=== PATIENT | female | born 1940 | race Caucasian/White ===

== ENCOUNTER → 2018-06-20 | Outpatient (CLI) | payer MEDICARE, MEDICAID ==
[~2018-06-20] MED LIST: ACET-1757 PO; AMIO200T PO; AMLO10TA2 PO; AMLO2.5T PO; ASPI-496 PO; ATOR40TA PO; ATOR40TA78 PO; BP med; CARV12.52 PO; CARV12.543 PO; CARV25TA12 PO; CEFD300C37 PO; FERR325T63 PO; FURO-92 PO; FURO20TA3 PO; GABA-826 PO; GLIP10TA13 PO; HYDR-3240 PO; HYDR-3343 PO; ISOS10TA2 PO; LEVO50TA5 PO; LEVO75TA PO; LEVO88TA4 PO; LIDOCAINE-MPF 2%, 2ML ONE; LISI-167 PO; LOSA50TA2 PO; LOSA50TA6 PO; METF500T5 PO; MIRT30TA4 PO; POTA20TA14 PO; POTA20TA6 PO; POTA8TAB6 PO; TRAM-47 PO; WARF2.5T73 PO-COUM; [UNRECOGNIZED DRUG - OTHER]; [UNRECOGNIZED DRUG - REMARK]; will bring med list
== END | disposition home or self-care (01) ==
LOC: RAD 11:57
PROVIDERS: ATTEND Internal Medicine
DX: E04.2 Nontoxic multinodular goiter (principal); D44.0 Neoplasm of uncertain behavior of thyroid gland
CPT/HCPCS: 76536; 76942; 88172; 88173; J3490; 31628; 31629

== ENCOUNTER → 2018-07-30 | Outpatient (CLI) | payer MEDICARE, MEDICAID ==
[~2018-07-30] MED LIST changes: -AMLO10TA2 PO; +AMLO10TA6 PO; -AMLO2.5T PO; +AMLO2.5T3 PO; -LOSA50TA6 PO; +LOSA50TA7 PO; +METF500T17 PO; -METF500T5 PO
== END | disposition home or self-care (01) ==
LOC: RAD 08:30
PROVIDERS: ATTEND Surgery
DX: C73 Malignant neoplasm of thyroid gland (principal); R59.0 Localized enlarged lymph nodes; Z85.850 Personal history of malignant neoplasm of thyroid; E11.9 Type 2 diabetes mellitus without complications
CPT/HCPCS: 76942; 88172; 88173; J3490

== ENCOUNTER → 2018-08-16 | Outpatient (CLI) | payer MEDICARE, MEDICAID ==
[~2018-08-16] MED LIST changes: -LIDOCAINE-MPF 2%, 2ML ONE
== END | disposition home or self-care (01) ==
LOC: CVU 09:35
PROVIDERS: ATTEND Nurse Practitioner Family
DX: I08.2 Rheumatic disorders of both aortic and tricuspid valves (principal); Z95.810 Presence of automatic (implantable) cardiac defibrillator; Z95.2 Presence of prosthetic heart valve
CPT/HCPCS: 93306

== ENCOUNTER → 2018-08-27 | Outpatient (CLI) | payer MEDICARE, MEDICAID ==
[~2018-08-27] MED LIST changes: +[UNRECOGNIZED DRUG - OTHER]
[2018-08-27 12:41] LABS: BASOPHILS # (AUTO) 0.02 x10^3/uL (0-0.1); BASOPHILS % (AUTO) 0 % (0-1); EOSINOPHILS % (AUTO) 3 % (1-7); LYMPHOCYTES # (AUTO) 0.89 x10^3/uL (1-3.4); LYMPHOCYTES % (AUTO) 13 % (22-44); MD NO; MEAN CORPUSCULAR HEMOGLOBIN 29.6 pg (27.0-34.8); MEAN CORPUSCULAR HGB CONC 33.4 g/dL (32.4-35.8); MEAN CORPUSCULAR VOLUME 88.5 fL (80-100); MEAN PLATELET VOLUME 9.1 fL (7.4-10.4); MONOCYTES # (AUTO) 0.42 x10^3/uL (0.2-0.8); MONOCYTES % (AUTO) 6 % (2-9); NEUTROPHILS # (AUTO) 5.46 x10^3/uL (1.8-6.8); NEUTROPHILS % (AUTO) 78 % (42-75); PLATELET COUNT 249 x10^3/uL (130-400)
[2018-08-27 12:47] LABS: ALBUMIN 3.2 g/dL (3.4-5.0); ANION GAP 2 mmol/L (5-15); CALCIUM 8.8 mg/dL (8.5-10.1); CHLORIDE 106 mmol/L (98-107)
[2018-08-27 12:51] LABS: ALANINE AMINOTRANSFERASE 24 U/L (12-78); ALKALINE PHOSPHATASE 184 U/L (45-117); BILIRUBIN,TOTAL 0.3 mg/dL (0.2-1.0); CREATININE 0.94 mg/dL (0.55-1.02); TOTAL PROTEIN 7.3 g/dL (6.4-8.2)
== END | disposition home or self-care (01) ==
LOC: STAR 11:06
PROVIDERS: ATTEND Surgery
DX: Z01.818 Encounter for other preprocedural examination (principal); C73 Malignant neoplasm of thyroid gland; E04.2 Nontoxic multinodular goiter
CPT/HCPCS: 36415; 80053; 85025

== ENCOUNTER 2018-09-09 06:02 | Inpatient (IN) | payer MEDICARE, MEDICAID ==
[2018-08-27 11:52] VITALS: BP 191/73
[~2018-09-09] VITALS: Ht 152.4 cm; Wt 77.3 kg
[2018-09-09] MEDS ORDERED: BUPIVACAINE/PF-EPI 0.5% 1:200K ONE (06:28)
[2018-09-09] MEDS ORDERED: LACTATED RINGERS 1,000 ML IV SCH (06:44)
[2018-09-09] MEDS ORDERED: FENTANYL PF 250 MCG/5ML ONE (07:13)
[2018-09-09] MEDS ORDERED: LIDOCAINE JELLY 2%, 30GM ONE (07:14)
[2018-09-09] MEDS ORDERED: ACETAMINOPHEN 500 MG TABLET ONE (07:15)
[2018-09-09] MEDS ORDERED: ONDANSETRON ODT 8 MG ONE (07:15)
[2018-09-09] MEDS ORDERED: ONDANSETRON ODT 8 MG PO ONE (07:30)
[2018-09-09] MEDS ORDERED: ACETAMINOPHEN 500 MG TABLET PO ONE (07:30)
[2018-09-09] MEDS ORDERED: LABETALOL 5MG/ML, 20ML ONE (07:37)
[2018-09-09] MEDS ORDERED: HYDROmorphone 1 MG/ML, 1ML IV PRN (09:00)
[2018-09-09] MEDS ORDERED: ONDANSETRON 2MG/ML, 2ML IV PRN ×2 (09:00→15:30)
[2018-09-09] MEDS ORDERED: ALBUTEROL/IPRATROPIUM 2.5MG/0.5MG, 3 ML NPPB PRN (09:00)
[2018-09-09] MEDS ORDERED: MIDAZOLAM 1 MG/ML, 2ML IV PRN (09:00)
[2018-09-09] MEDS ORDERED: LABETALOL 5MG/ML, 20ML IV PRN (09:00)
[2018-09-09] MEDS ORDERED: OXYcodone 5 MG/5 ML ORAL.SOL UDC PO PRN (09:00)
[2018-09-09] MEDS ORDERED: DIPHENHYDRAMINE 50 MG/ML, 1ML IVPush PRN (09:00)
[2018-09-09] MEDS ORDERED: DEXAMETHASONE 4 MG/ML, 1ML ONE (09:23)
[2018-09-09] MEDS ORDERED: ONDANSETRON 2MG/ML, 2ML ONE (09:23)
[2018-09-09] MEDS ORDERED: LIDOCAINE-MPF 2% ,5ML ONE (09:23)
[2018-09-09] MEDS ORDERED: CEFAZOLIN 1,000 MG ONE (09:23)
[2018-09-09] MEDS ORDERED: PROPOFOL 10 MG/ML, 20ML ONE (09:23)
[2018-09-09] MEDS ORDERED: ROCURONIUM 10MG/ML,5ML ONE (09:24)
[2018-09-09] MEDS ORDERED: SUCCINYLCHOLINE 20 MG/ML, 10ML ONE (09:24)
[2018-09-09] MEDS: FENTANYL PF 100 MCG/2ML IV PRN ×2 (11:59→14:02)
[2018-09-09] MEDS ORDERED: hydrALAzine 20 MG/ML, 1ML ONE (13:23)
[2018-09-09] MEDS ORDERED: MORPHINE SULFATE 4 MG/ML, 1ML ONE (13:23)
[2018-09-09] MEDS ORDERED: MORPHINE SULFATE 4 MG/ML, 1ML IVPush PRN (13:30)
[2018-09-09] MEDS ORDERED: hydrALAzine 20 MG/ML, 1ML IV PRN (13:30)
[2018-09-09] MEDS ORDERED: FENTANYL PF 100 MCG/2ML ONE (14:01)
[2018-09-09] MEDS ORDERED: ACETAMINOPHEN 650 MG SUPP PR PRN (15:30)
[2018-09-09] MEDS: ISOSORBIDE DINITRATE 10 MG TABLET PO SCH ×2 (16:39→20:33)
[2018-09-09] MEDS: CARVEDILOL 25 MG TABLET PO SCH (16:39)
[2018-09-09] MEDS: INSULIN REGULAR, HUMAN 100 UNITS/ML, 3ML MEDIUM DOSE SS SQ-INSULIN SCH ×2 (16:50→20:31)
[2018-09-09] MEDS: POTASSIUM CHLORIDE 20 MEQ in D5%-0.45% NACL 1,000 ML IV SCH (16:51)
[2018-09-09] MEDS: MORPHINE SULFATE 4 MG/ML, 1ML IV PRN (20:31)
[2018-09-09] MEDS: MIRTAZAPINE 30 MG TAB.RAPDIS PO SCH (20:33)
[2018-09-09] MEDS: ATORVASTATIN 40 MG TABLET PO SCH (20:33)
[2018-09-10] MEDS: MORPHINE SULFATE 4 MG/ML, 1ML IV PRN ×2 (03:11→15:34)
[2018-09-10 04:38] LABS: BASOPHILS % (AUTO) 0 % (0-1); EOSINOPHILS % (AUTO) 0 % (1-7); LYMPHOCYTES % (AUTO) 5 % (22-44); MD NO; MEAN CORPUSCULAR HEMOGLOBIN 29.2 pg (27.0-34.8); MEAN CORPUSCULAR VOLUME 88.7 fL (80-100); MONOCYTES # (AUTO) 1.11 x10^3/uL (0.2-0.8); MONOCYTES % (AUTO) 9 % (2-9); NEUTROPHILS # (AUTO) 10.26 x10^3/uL (1.8-6.8); NEUTROPHILS % (AUTO) 86 % (42-75); PLATELET COUNT 306 x10^3/uL (130-400); RED BLOOD COUNT 3.88 x10^6/uL (3.82-5.3); RED CELL DISTRIBUTION WIDTH 13.7 % (9.6-15.2)
[2018-09-10 04:41] LABS: ALBUMIN 2.5 g/dL (3.4-5.0); ANION GAP 6 mmol/L (5-15); CALCIUM 6.9 mg/dL (8.5-10.1); CHLORIDE 107 mmol/L (98-107)
[2018-09-10 04:43] LABS: CREATININE 0.93 mg/dL (0.55-1.02)
[2018-09-10] MEDS: CARVEDILOL 25 MG TABLET PO SCH ×2 (06:00→18:05)
[2018-09-10] MEDS: hydrALAzine 20 MG/ML, 1ML IV PRN ×2 (06:28→10:07)
[2018-09-10] MEDS: POTASSIUM CHLORIDE 20 MEQ in D5%-0.45% NACL 1,000 ML IV SCH ×2 (06:28→22:23)
[2018-09-10] MEDS ORDERED: CALCIUM GLUCONATE 9.2 MEQ in SODIUM CHLORIDE 0.9% 100 ML IV ONE (07:00)
[2018-09-10] MEDS: INSULIN REGULAR, HUMAN 100 UNITS/ML, 3ML MEDIUM DOSE SS SQ-INSULIN SCH ×4 (07:00→21:56)
[2018-09-10] MEDS: ENOXAPARIN 40 MG/0.4 ML SQ SCH (09:10)
[2018-09-10 09:26] VITALS: BP 132/40
[2018-09-10 10:00] VITALS: BP 171/71
[2018-09-10] MEDS: ISOSORBIDE DINITRATE 10 MG TABLET PO SCH ×3 (10:11→21:54)
[2018-09-10] MEDS: FUROSEMIDE 20 MG TABLET PO SCH (10:11)
[2018-09-10] MEDS: AMLODIPINE 2.5 MG TABLET PO SCH (10:11)
[2018-09-10] MEDS: LOSARTAN 50MG TABLET PO SCH (10:11)
[2018-09-10 13:23] VITALS: BP 164/67
[2018-09-10 19:09] VITALS: BP 131/53
[2018-09-10] MEDS: ATORVASTATIN 40 MG TABLET PO SCH (21:54)
[2018-09-10] MEDS: MIRTAZAPINE 30 MG TAB.RAPDIS PO SCH (21:54)
[2018-09-11 01:28] VITALS: BP 138/62
[2018-09-11] MEDS: MORPHINE SULFATE 4 MG/ML, 1ML IV PRN ×2 (02:35→20:53)
[2018-09-11] MEDS: CARVEDILOL 25 MG TABLET PO SCH ×2 (06:54→17:11)
[2018-09-11 07:35] VITALS: BP 157/60
[2018-09-11] MEDS: FUROSEMIDE 20 MG TABLET PO SCH (08:10)
[2018-09-11] MEDS: ISOSORBIDE DINITRATE 10 MG TABLET PO SCH ×3 (08:10→20:52)
[2018-09-11] MEDS: AMLODIPINE 2.5 MG TABLET PO SCH (08:10)
[2018-09-11] MEDS: ENOXAPARIN 40 MG/0.4 ML SQ SCH (08:10)
[2018-09-11] MEDS: LOSARTAN 50MG TABLET PO SCH (08:11)
[2018-09-11] MEDS: CALCIUM CARBONATE 500 MG/5 ML PO SCH ×4 (08:33→21:00)
[2018-09-11] MEDS: INSULIN REGULAR, HUMAN 100 UNITS/ML, 3ML MEDIUM DOSE SS SQ-INSULIN SCH ×4 (08:33→21:00)
[2018-09-11] MEDS: POTASSIUM CHLORIDE 20 MEQ in D5%-0.45% NACL 1,000 ML IV SCH (11:28)
[2018-09-11 14:10] VITALS: BP 152/66
[2018-09-11] MEDS ORDERED: CALCIUM GLUCONATE 4.6 MEQ in SODIUM CHLORIDE 0.9% 50 ML IV ONE (15:00)
[2018-09-11 19:24] VITALS: BP 156/69
[2018-09-11] MEDS: ATORVASTATIN 40 MG TABLET PO SCH (20:51)
[2018-09-11] MEDS: MIRTAZAPINE 30 MG TAB.RAPDIS PO SCH (20:52)
[2018-09-12] MEDS: POTASSIUM CHLORIDE 20 MEQ in D5%-0.45% NACL 1,000 ML IV SCH ×2 (00:48→12:52)
[2018-09-12 02:39] VITALS: BP 152/60
[2018-09-12] MEDS: CARVEDILOL 25 MG TABLET PO SCH ×2 (06:12→17:08)
[2018-09-12] MEDS: INSULIN REGULAR, HUMAN 100 UNITS/ML, 3ML MEDIUM DOSE SS SQ-INSULIN SCH ×4 (07:00→21:58)
[2018-09-12 07:16] VITALS: BP 142/60
[2018-09-12] MEDS ORDERED: CALCITRIOL 0.5 MCG CAPSULE PO SCH (09:00)
[2018-09-12] MEDS: CALCIUM CARBONATE 500 MG/5 ML PO SCH (09:00)
[2018-09-12] MEDS ORDERED: CALCIUM CARBONATE 500 MG TAB.CHEW ONE ×2 (10:27→10:28)
[2018-09-12] MEDS: LOSARTAN 50MG TABLET PO SCH (10:47)
[2018-09-12] MEDS: ISOSORBIDE DINITRATE 10 MG TABLET PO SCH ×3 (10:47→21:50)
[2018-09-12] MEDS: AMLODIPINE 2.5 MG TABLET PO SCH (10:47)
[2018-09-12] MEDS: FUROSEMIDE 20 MG TABLET PO SCH (10:47)
[2018-09-12] MEDS: ENOXAPARIN 40 MG/0.4 ML SQ SCH (10:47)
[2018-09-12 13:35] VITALS: BP 162/72
[2018-09-12] MEDS: CALCIUM CARBONATE 500 MG TABLET PO SCH ×2 (17:07→21:50)
[2018-09-12 18:44] VITALS: BP 141/59
[2018-09-12] MEDS: CALCITRIOL 1 MCG/ML SOL PO SCH (21:49)
[2018-09-12] MEDS: ATORVASTATIN 40 MG TABLET PO SCH (21:50)
[2018-09-12] MEDS: MIRTAZAPINE 30 MG TAB.RAPDIS PO SCH (21:50)
[2018-09-13 01:04] VITALS: BP 145/60
[2018-09-13] MEDS: MORPHINE SULFATE 4 MG/ML, 1ML IV PRN ×2 (01:28→20:42)
[2018-09-13] MEDS: POTASSIUM CHLORIDE 20 MEQ in D5%-0.45% NACL 1,000 ML IV SCH (04:34)
[2018-09-13] MEDS: CARVEDILOL 25 MG TABLET PO SCH ×2 (06:39→16:45)
[2018-09-13 07:14] VITALS: BP 171/68
[2018-09-13] MEDS: INSULIN REGULAR, HUMAN 100 UNITS/ML, 3ML MEDIUM DOSE SS SQ-INSULIN SCH ×4 (07:55→21:58)
[2018-09-13] MEDS: CALCITRIOL 1 MCG/ML SOL PO SCH ×2 (08:52→20:50)
[2018-09-13] MEDS: LOSARTAN 50MG TABLET PO SCH (08:53)
[2018-09-13] MEDS: AMLODIPINE 2.5 MG TABLET PO SCH (08:53)
[2018-09-13] MEDS: ISOSORBIDE DINITRATE 10 MG TABLET PO SCH ×3 (08:53→20:41)
[2018-09-13] MEDS: CALCIUM CARBONATE 500 MG TABLET PO SCH ×3 (08:54→20:42)
[2018-09-13] MEDS: FUROSEMIDE 20 MG TABLET PO SCH (08:54)
[2018-09-13] MEDS: ENOXAPARIN 40 MG/0.4 ML SQ SCH (08:55)
[2018-09-13] MEDS ORDERED: CALCIUM GLUCONATE IV ONE (10:30)
[2018-09-13] MEDS ORDERED: CALCIUM GLUCONATE 9.2 MEQ in SODIUM CHLORIDE 0.9% 100 ML IV ONE (10:30)
[2018-09-13] MEDS ORDERED: MAGNESIUM SULFATE 4 GM in SODIUM CHLORIDE 0.9% 100 ML IV ONE (13:00)
[2018-09-13 13:25] VITALS: BP 196/54
[2018-09-13 15:15] VITALS: BP 164/69
[2018-09-13] MEDS: hydrALAzine 20 MG/ML, 1ML IV PRN (15:15)
[2018-09-13 18:42] VITALS: BP 158/51
[2018-09-13] MEDS: MIRTAZAPINE 30 MG TAB.RAPDIS PO SCH (20:35)
[2018-09-13] MEDS: ATORVASTATIN 40 MG TABLET PO SCH (20:35)
[2018-09-14] MEDS ORDERED: ALBUTEROL SULFATE 2.5 MG/3 ML NPPB PRN (00:50)
[2018-09-14] MEDS ORDERED: ALBUTEROL SULFATE 2.5 MG/3 ML ONE (00:51)
[2018-09-14] MEDS ORDERED: RACEPINEPHRINE INH 2.25%, 0.5ML ONE (01:00)
[2018-09-14] MEDS: MORPHINE SULFATE 4 MG/ML, 1ML IV PRN (01:13)
[2018-09-14] MEDS: POTASSIUM CHLORIDE 20 MEQ in D5%-0.45% NACL 1,000 ML IV SCH ×2 (01:28→05:48)
[2018-09-14] MEDS ORDERED: RACEPINEPHRINE INH 2.25%, 0.5ML NPPB PRN (01:30)
[2018-09-14 01:38] VITALS: BP 133/60
[2018-09-14] MEDS ORDERED: PROPOFOL 100 ML IV ONE (02:24)
[2018-09-14 03:01] LABS: MICROSCOPIC NOT IND
[2018-09-14 03:02] LABS: CULTURE INDICATED? NO
[2018-09-14] MEDS ORDERED: PHARMACY MAY ADJ FOR RENAL FX MC SCH (03:30)
[2018-09-14] MEDS: PROPOFOL 100 ML IV PRN ×3 (03:51→21:09)
[2018-09-14] MEDS: INSULIN REGULAR 100 UNITS/ML, 3ML VIAL SQ-INSULIN SCH ×4 (04:00→21:10)
[2018-09-14 04:30] LABS: CALCIUM 9.1 mg/dL (8.5-10.1)
[2018-09-14] MEDS: INSULIN REGULAR, HUMAN 100 UNITS/ML, 3ML MEDIUM DOSE SS SQ-INSULIN SCH ×3 (04:36→15:45)
[2018-09-14] MEDS: DEXAMETHASONE 4 MG/ML, 1ML IVPush SCH ×4 (04:43→21:09)
[2018-09-14] MEDS: FAMOTIDINE 20 MG/2 ML IV SCH ×2 (04:43→15:45)
[2018-09-14] MEDS: CARVEDILOL 25 MG TABLET PO SCH ×2 (05:48→17:58)
[2018-09-14 08:49] LABS: BASOPHILS % (AUTO) 0 % (0-1); EOSINOPHILS # (AUTO) 0.01 x10^3/uL (0-0.4); EOSINOPHILS % (AUTO) 0 % (1-7); LYMPHOCYTES # (AUTO) 0.26 x10^3/uL (1-3.4); LYMPHOCYTES % (AUTO) 3 % (22-44); MD NO; MEAN CORPUSCULAR HEMOGLOBIN 28.2 pg (27.0-34.8); MEAN CORPUSCULAR HGB CONC 32.2 g/dL (32.4-35.8); MEAN CORPUSCULAR VOLUME 87.7 fL (80-100); MEAN PLATELET VOLUME 8.6 fL (7.4-10.4); MONOCYTES # (AUTO) 0.36 x10^3/uL (0.2-0.8); MONOCYTES % (AUTO) 4 % (2-9); NEUTROPHILS # (AUTO) 7.89 x10^3/uL (1.8-6.8); NEUTROPHILS % (AUTO) 93 % (42-75); PLATELET COUNT 343 x10^3/uL (130-400); RED BLOOD COUNT 4.02 x10^6/uL (3.82-5.3); RED CELL DISTRIBUTION WIDTH 13.3 % (9.6-15.2)
[2018-09-14] MEDS: LOSARTAN 50MG TABLET PO SCH (09:00)
[2018-09-14] MEDS: AMLODIPINE 2.5 MG TABLET PO SCH (09:00)
[2018-09-14] MEDS: ENOXAPARIN 40 MG/0.4 ML SQ SCH (09:00)
[2018-09-14] MEDS: ISOSORBIDE DINITRATE 10 MG TABLET PO SCH ×3 (09:00→21:09)
[2018-09-14] MEDS: FUROSEMIDE 20 MG TABLET PO SCH (09:40)
[2018-09-14] MEDS: CALCIUM CARBONATE 500 MG TABLET PO SCH ×3 (09:40→21:08)
[2018-09-14 11:00] LABS: ALANINE AMINOTRANSFERASE 12 U/L (12-78); ALBUMIN 2.5 g/dL (3.4-5.0); ANION GAP 14 mmol/L (5-15); CALCIUM 8.6 mg/dL (8.5-10.1); CHLORIDE 102 mmol/L (98-107)
[2018-09-14 11:03] LABS: ALKALINE PHOSPHATASE 114 U/L (45-117); BILIRUBIN,TOTAL 0.5 mg/dL (0.2-1.0); TOTAL PROTEIN 5.9 g/dL (6.4-8.2)
[2018-09-14] MEDS: CALCITRIOL 1 MCG/ML SOL PO SCH ×2 (12:58→22:20)
[2018-09-14] MEDS: FENTANYL PF 100 MCG/2ML IVPush PRN ×4 (13:50→19:36)
[2018-09-14] MEDS: D5%-0.45% NACL 1,000 ML IV SCH (14:00)
[2018-09-14] MEDS: LIDOCAINE-MPF 1%, 2ML ENDO PRN ×2 (15:46→23:19)
[2018-09-14] MEDS ORDERED: SUCCINYLCHOLINE 20 MG/ML, 10ML ONE (15:53)
[2018-09-14] MEDS ORDERED: ETOMIDATE 40 MG/20 ML ONE (15:53)
[2018-09-14] MEDS ORDERED: CETACAINE 50ML TP PRN (18:30)
[2018-09-14] MEDS: ATORVASTATIN 40 MG TABLET PO SCH (21:08)
[2018-09-14] MEDS: MIRTAZAPINE 30 MG TAB.RAPDIS PO SCH (21:09)
[2018-09-15] MEDS: FENTANYL PF 100 MCG/2ML IVPush PRN ×6 (00:29→21:39)
[2018-09-15] MEDS: D5%-0.45% NACL 1,000 ML IV SCH ×2 (00:30→11:28)
[2018-09-15] MEDS: DEXAMETHASONE 4 MG/ML, 1ML IVPush SCH ×4 (03:06→21:54)
[2018-09-15] MEDS: PROPOFOL 100 ML IV PRN ×3 (03:07→15:34)
[2018-09-15] MEDS: FAMOTIDINE 20 MG/2 ML IV SCH ×2 (03:07→15:35)
[2018-09-15 04:24] LABS: BASOPHILS % (AUTO) 0 % (0-1); EOSINOPHILS % (AUTO) 0 % (1-7); LYMPHOCYTES # (AUTO) 0.39 x10^3/uL (1-3.4); LYMPHOCYTES % (AUTO) 4 % (22-44); MD NO; MEAN CORPUSCULAR HEMOGLOBIN 28.8 pg (27.0-34.8); MEAN CORPUSCULAR HGB CONC 33.4 g/dL (32.4-35.8); MEAN CORPUSCULAR VOLUME 86.2 fL (80-100); MEAN PLATELET VOLUME 8.2 fL (7.4-10.4); MONOCYTES # (AUTO) 0.16 x10^3/uL (0.2-0.8); MONOCYTES % (AUTO) 2 % (2-9); NEUTROPHILS # (AUTO) 9.01 x10^3/uL (1.8-6.8); NEUTROPHILS % (AUTO) 94 % (42-75); PLATELET COUNT 341 x10^3/uL (130-400); RED CELL DISTRIBUTION WIDTH 13.2 % (9.6-15.2)
[2018-09-15 04:33] LABS: ANION GAP 9 mmol/L (5-15); CALCIUM 7.9 mg/dL (8.5-10.1); CHLORIDE 104 mmol/L (98-107)
[2018-09-15] MEDS: INSULIN REGULAR 100 UNITS/ML, 3ML VIAL SQ-INSULIN SCH ×4 (04:48→22:18)
[2018-09-15 05:21] VITALS: BP 135/48
[2018-09-15] MEDS: LIDOCAINE-MPF 1%, 2ML ENDO PRN (05:44)
[2018-09-15] MEDS: CARVEDILOL 25 MG TABLET PO SCH ×2 (05:54→18:22)
[2018-09-15] MEDS ORDERED: POTASSIUM CHLORIDE 10% 20 MEQ/15 ML UDC NG ONE (09:00)
[2018-09-15] MEDS ORDERED: MAGNESIUM SULFATE PMX 2GM/50ML 50 ML IVPB ONE (09:00)
[2018-09-15] MEDS ORDERED: LACTATED RINGERS 500 ML IV ONE (09:00)
[2018-09-15] MEDS: CALCIUM CARBONATE 500 MG TABLET PO SCH ×3 (09:27→21:52)
[2018-09-15] MEDS: AMLODIPINE 2.5 MG TABLET PO SCH (09:28)
[2018-09-15] MEDS: LOSARTAN 50MG TABLET PO SCH (09:28)
[2018-09-15] MEDS: CALCITRIOL 1 MCG/ML SOL PO SCH ×2 (09:29→22:20)
[2018-09-15] MEDS: ISOSORBIDE DINITRATE 10 MG TABLET PO SCH (09:32)
[2018-09-15] MEDS: DIPHENHYDRAMINE 50 MG/ML, 1ML IVPush SCH ×3 (11:25→23:57)
[2018-09-15] MEDS: ISOSORBIDE DINITRATE 20 MG TABLET PO SCH ×2 (15:35→21:53)
[2018-09-15] MEDS: ATORVASTATIN 40 MG TABLET PO SCH (21:52)
[2018-09-15] MEDS: MIRTAZAPINE 30 MG TAB.RAPDIS PO SCH (21:53)
[2018-09-16] MEDS: PROPOFOL 100 ML IV PRN ×4 (00:13→18:55)
[2018-09-16] MEDS: D5%-0.45% NACL 1,000 ML IV SCH ×2 (01:52→15:01)
[2018-09-16] MEDS: FENTANYL PF 100 MCG/2ML IVPush PRN ×3 (01:54→21:58)
[2018-09-16 04:00] VITALS: BP 124/55
[2018-09-16] MEDS: FAMOTIDINE 20 MG/2 ML IV SCH ×2 (04:23→15:00)
[2018-09-16] MEDS: INSULIN REGULAR 100 UNITS/ML, 3ML VIAL SQ-INSULIN SCH ×4 (04:24→22:07)
[2018-09-16 04:35] LABS: MEAN CORPUSCULAR HEMOGLOBIN 29.4 pg (27.0-34.8); MEAN CORPUSCULAR HGB CONC 33.9 g/dL (32.4-35.8); MEAN CORPUSCULAR VOLUME 86.7 fL (80-100); MEAN PLATELET VOLUME 8.1 fL (7.4-10.4); PLATELET COUNT 347 x10^3/uL (130-400); RED BLOOD COUNT 3.54 x10^6/uL (3.82-5.3); RED CELL DISTRIBUTION WIDTH 13.6 % (9.6-15.2)
[2018-09-16 04:47] LABS: ANION GAP 8 mmol/L (5-15); CALCIUM 7.6 mg/dL (8.5-10.1); CHLORIDE 107 mmol/L (98-107)
[2018-09-16 04:50] LABS: CREATININE 1.08 mg/dL (0.55-1.02)
[2018-09-16 05:52] LABS: MD YES
[2018-09-16 06:00] LABS: <PLATELET ESTIMATE> ADEQUATE; <PLT MORPHOLOGY> NORMAL PLT MORPH; BAND#(MANUAL) 0.89 x10^3/uL; BANDS%(MANUAL) 5 % (0-7); LYMPH#(MANUAL) 0.89 x10^3/uL (1-3.4); LYMPHS% (MANUAL) 5 % (22-44); MONOS#(MANUAL) 0.18 x10^3/uL (0.3-2.7); MONOS% (MANUAL) 1 % (2-9); POLYCHROMASIA 1+; SEG#(MANUAL) 15.75 x10^3/uL (1.8-6.8); SEGS% (MANUAL) 89 % (42-75)
[2018-09-16] MEDS: CARVEDILOL 25 MG TABLET PO SCH ×2 (06:24→17:52)
[2018-09-16] MEDS: DIPHENHYDRAMINE 50 MG/ML, 1ML IVPush SCH (07:05)
[2018-09-16] MEDS: hydrALAzine 20 MG/ML, 1ML IV PRN (08:08)
[2018-09-16] MEDS: AMLODIPINE 10 MG TAB PO SCH (08:09)
[2018-09-16] MEDS: ISOSORBIDE DINITRATE 20 MG TABLET PO SCH ×3 (08:09→21:18)
[2018-09-16] MEDS: CALCITRIOL 1 MCG/ML SOL PO SCH ×2 (08:09→21:18)
[2018-09-16] MEDS: CALCIUM CARBONATE 500 MG TABLET PO SCH ×3 (11:19→21:18)
[2018-09-16] MEDS ORDERED: LABETALOL 5MG/ML, 20ML IVPush PRN (12:30)
[2018-09-16] MEDS: DEXAMETHASONE 4 MG/ML, 1ML IVPush SCH ×2 (12:30→17:53)
[2018-09-16] MEDS ORDERED: FUROSEMIDE 20 MG/2 ML IV STA (16:59)
[2018-09-16] MEDS: ATORVASTATIN 40 MG TABLET PO SCH (21:18)
[2018-09-16] MEDS: MIRTAZAPINE 30 MG TAB.RAPDIS PO SCH (21:19)
[2018-09-17] MEDS: DEXAMETHASONE 4 MG/ML, 1ML IVPush SCH ×2 (00:43→06:12)
[2018-09-17] MEDS: FENTANYL PF 100 MCG/2ML IVPush PRN ×5 (01:20→19:20)
[2018-09-17 04:00] VITALS: BP 127/45
[2018-09-17 04:30] LABS: MEAN CORPUSCULAR HEMOGLOBIN 29.4 pg (27.0-34.8); MEAN CORPUSCULAR HGB CONC 33.1 g/dL (32.4-35.8); MEAN CORPUSCULAR VOLUME 88.7 fL (80-100); MEAN PLATELET VOLUME 8.3 fL (7.4-10.4); PLATELET COUNT 363 x10^3/uL (130-400); RED BLOOD COUNT 3.57 x10^6/uL (3.82-5.3); RED CELL DISTRIBUTION WIDTH 13.7 % (9.6-15.2)
[2018-09-17 04:42] LABS: ANION GAP 7 mmol/L (5-15); CALCIUM 7.2 mg/dL (8.5-10.1); CHLORIDE 107 mmol/L (98-107); CREATININE 0.98 mg/dL (0.55-1.02); MD YES; TRIGLYCERIDES 201 mg/dL (50-200)
[2018-09-17 04:44] LABS: LYMPH#(MANUAL) 0.38 x10^3/uL (1-3.4); LYMPHS% (MANUAL) 2 % (22-44); SEG#(MANUAL) 18.42 x10^3/uL (1.8-6.8); SEGS% (MANUAL) 98 % (42-75)
[2018-09-17 04:45] LABS: <PLATELET ESTIMATE> ADEQUATE; <PLT MORPHOLOGY> NORMAL PLT MORPH; ANISOCYTOSIS 1+; OVALOCYTES 1+
[2018-09-17] MEDS: FAMOTIDINE 20 MG/2 ML IV SCH ×2 (04:50→15:25)
[2018-09-17] MEDS: INSULIN REGULAR 100 UNITS/ML, 3ML VIAL SQ-INSULIN SCH ×4 (04:51→23:14)
[2018-09-17] MEDS: PROPOFOL 100 ML IV PRN ×4 (05:01→20:57)
[2018-09-17] MEDS: CARVEDILOL 25 MG TABLET PO SCH ×2 (06:11→18:27)
[2018-09-17] MEDS: ISOSORBIDE DINITRATE 20 MG TABLET PO SCH ×3 (08:44→20:46)
[2018-09-17] MEDS: AMLODIPINE 10 MG TAB PO SCH (08:44)
[2018-09-17] MEDS: AMPICILLIN/SULBACTAM 3 GM in SODIUM CHLORIDE 0.9% 100 ML IV SCH ×3 (08:44→20:52)
[2018-09-17] MEDS: CALCIUM CARBONATE 500 MG TABLET PO SCH ×3 (08:45→20:46)
[2018-09-17] MEDS: CALCITRIOL 1 MCG/ML SOL PO SCH ×2 (08:45→20:46)
[2018-09-17] MEDS: DEXAMETHASONE 10 MG in SODIUM CHLORIDE 0.9% 50 ML IV SCH ×3 (12:45→23:43)
[2018-09-17] MEDS ORDERED: D5%-0.45% NACL 1,000 ML IV SCH ×2 (14:00)
[2018-09-17] MEDS ORDERED: LIDOCAINE-MPF 1%, 5ML ONE (14:23)
[2018-09-17] MEDS ORDERED: MAGNESIUM SULFATE PMX 2GM/50ML 50 ML IV ONE (16:00)
[2018-09-17] MEDS: MIRTAZAPINE 30 MG TAB.RAPDIS PO SCH (20:46)
[2018-09-17] MEDS: ATORVASTATIN 40 MG TABLET PO SCH (20:46)
[2018-09-18] MEDS: FENTANYL PF 100 MCG/2ML IVPush PRN ×3 (00:13→23:23)
[2018-09-18] MEDS: AMPICILLIN/SULBACTAM 3 GM in SODIUM CHLORIDE 0.9% 100 ML IV SCH ×4 (02:52→21:18)
[2018-09-18] MEDS: FAMOTIDINE 20 MG/2 ML IV SCH ×2 (02:52→16:04)
[2018-09-18] MEDS: PROPOFOL 100 ML IV PRN ×3 (03:02→19:50)
[2018-09-18 04:00] VITALS: BP 116/45
[2018-09-18] MEDS: INSULIN REGULAR 100 UNITS/ML, 3ML VIAL SQ-INSULIN SCH ×4 (04:38→23:21)
[2018-09-18 04:49] LABS: MEAN CORPUSCULAR HEMOGLOBIN 29.2 pg (27.0-34.8); MEAN CORPUSCULAR HGB CONC 33.5 g/dL (32.4-35.8); MEAN CORPUSCULAR VOLUME 87.4 fL (80-100); MEAN PLATELET VOLUME 8.3 fL (7.4-10.4); PLATELET COUNT 355 x10^3/uL (130-400); RED BLOOD COUNT 3.56 x10^6/uL (3.82-5.3); RED CELL DISTRIBUTION WIDTH 13.7 % (9.6-15.2)
[2018-09-18 04:58] LABS: ANION GAP 7 mmol/L (5-15); CALCIUM 6.9 mg/dL (8.5-10.1); CHLORIDE 106 mmol/L (98-107)
[2018-09-18] MEDS: DEXAMETHASONE 10 MG in SODIUM CHLORIDE 0.9% 50 ML IV SCH ×4 (05:34→23:23)
[2018-09-18] MEDS: CARVEDILOL 25 MG TABLET PO SCH ×2 (05:34→18:15)
[2018-09-18 05:39] LABS: MD YES
[2018-09-18 05:42] LABS: BAND#(MANUAL) 0.59 x10^3/uL; BANDS%(MANUAL) 3 % (0-7); LYMPHS% (MANUAL) 1 % (22-44); SEG#(MANUAL) 18.91 x10^3/uL (1.8-6.8); SEGS% (MANUAL) 96 % (42-75)
[2018-09-18 05:43] LABS: ANISOCYTOSIS 1+; OVALOCYTES 1+
[2018-09-18 05:44] LABS: <PLATELET ESTIMATE> ADEQUATE; <PLT MORPHOLOGY> NORMAL PLT MORPH
[2018-09-18 05:54] LABS: BASOPHILS % (AUTO) 0 % (0-1); EOSINOPHILS % (AUTO) 0 % (1-7); LYMPHOCYTES # (AUTO) 0.24 x10^3/uL (1-3.4); LYMPHOCYTES % (AUTO) 1 % (22-44); MONOCYTES # (AUTO) 0.18 x10^3/uL (0.2-0.8); MONOCYTES % (AUTO) 1 % (2-9); NEUTROPHILS # (AUTO) 19.24 x10^3/uL (1.8-6.8); NEUTROPHILS % (AUTO) 98 % (42-75)
[2018-09-18] MEDS: CALCIUM CARBONATE 500 MG TABLET PO SCH ×3 (08:24→21:19)
[2018-09-18] MEDS: AMLODIPINE 10 MG TAB PO SCH (08:24)
[2018-09-18 08:25] VITALS: BP 114/45
[2018-09-18] MEDS: ISOSORBIDE DINITRATE 20 MG TABLET PO SCH ×3 (08:25→21:00)
[2018-09-18] MEDS: CALCITRIOL 1 MCG/ML SOL PO SCH ×2 (08:25→21:53)
[2018-09-18] MEDS ORDERED: INSULIN GLARGINE 100 UNITS/ML, PEN SQ-INSULIN SCH ×2 (21:00)
[2018-09-18] MEDS: MIRTAZAPINE 30 MG TAB.RAPDIS PO SCH (21:19)
[2018-09-18] MEDS: ATORVASTATIN 40 MG TABLET PO SCH (21:19)
[2018-09-19] MEDS: PROPOFOL 100 ML IV PRN (03:37)
[2018-09-19] MEDS: AMPICILLIN/SULBACTAM 3 GM in SODIUM CHLORIDE 0.9% 100 ML IV SCH ×4 (03:37→21:03)
[2018-09-19] MEDS: FAMOTIDINE 20 MG/2 ML IV SCH ×2 (03:37→15:46)
[2018-09-19 04:00] VITALS: BP 111/46
[2018-09-19 04:33] LABS: MEAN CORPUSCULAR HEMOGLOBIN 29.7 pg (27.0-34.8); MEAN CORPUSCULAR HGB CONC 33.6 g/dL (32.4-35.8); MEAN CORPUSCULAR VOLUME 88.3 fL (80-100); MEAN PLATELET VOLUME 8.5 fL (7.4-10.4); PLATELET COUNT 340 x10^3/uL (130-400); RED BLOOD COUNT 3.48 x10^6/uL (3.82-5.3); RED CELL DISTRIBUTION WIDTH 13.6 % (9.6-15.2)
[2018-09-19 04:57] LABS: ANION GAP 6 mmol/L (5-15); CALCIUM 7.1 mg/dL (8.5-10.1); CHLORIDE 106 mmol/L (98-107)
[2018-09-19 04:58] LABS: CREATININE 0.93 mg/dL (0.55-1.02)
[2018-09-19 05:39] LABS: MD YES
[2018-09-19 05:41] LABS: BAND#(MANUAL) 0.99 x10^3/uL; BANDS%(MANUAL) 4 % (0-7); MONOS#(MANUAL) 0.99 x10^3/uL (0.3-2.7); MONOS% (MANUAL) 4 % (2-9); SEG#(MANUAL) 22.82 x10^3/uL (1.8-6.8); SEGS% (MANUAL) 92 % (42-75)
[2018-09-19 05:42] LABS: <PLATELET ESTIMATE> ADEQUATE; <PLT MORPHOLOGY> NORMAL PLT MORPH; ANISOCYTOSIS 1+; OVALOCYTES 1+
[2018-09-19] MEDS: INSULIN REGULAR 100 UNITS/ML, 3ML VIAL SQ-INSULIN SCH ×4 (06:13→21:15)
[2018-09-19] MEDS: DEXAMETHASONE 10 MG in SODIUM CHLORIDE 0.9% 50 ML IV SCH ×3 (06:13→17:37)
[2018-09-19] MEDS: CARVEDILOL 25 MG TABLET PO SCH ×2 (06:13→18:42)
[2018-09-19] MEDS: ISOSORBIDE DINITRATE 20 MG TABLET PO SCH ×3 (08:19→21:04)
[2018-09-19] MEDS: AMLODIPINE 10 MG TAB PO SCH (08:19)
[2018-09-19] MEDS: CALCIUM CARBONATE 500 MG TABLET PO SCH ×3 (08:20→21:04)
[2018-09-19] MEDS: CALCITRIOL 1 MCG/ML SOL PO SCH ×2 (08:20→21:03)
[2018-09-19] MEDS ORDERED: BISACODYL 10 MG SUPP PR PRN (09:30)
[2018-09-19] MEDS ORDERED: LACTULOSE 20 GM/30 ML UDC NG PRN (09:30)
[2018-09-19] MEDS: DOCUSATE 50 MG/5 ML, 10ML UDC PO SCH (13:11)
[2018-09-19] MEDS: MIRTAZAPINE 30 MG TAB.RAPDIS PO SCH (21:03)
[2018-09-19] MEDS: SENNOSIDES 8.8 MG/5 ML ORAL SOL NG SCH (21:03)
[2018-09-19] MEDS: ATORVASTATIN 40 MG TABLET PO SCH (21:04)
[2018-09-19] MEDS: INSULIN GLARGINE 100 UNITS/ML, PEN SQ-INSULIN SCH (21:14)
[2018-09-20] MEDS: DEXAMETHASONE 10 MG in SODIUM CHLORIDE 0.9% 50 ML IV SCH ×3 (00:51→19:17)
[2018-09-20] MEDS: AMPICILLIN/SULBACTAM 3 GM in SODIUM CHLORIDE 0.9% 100 ML IV SCH ×4 (04:01→21:11)
[2018-09-20] MEDS: FAMOTIDINE 20 MG/2 ML IV SCH (04:02)
[2018-09-20] MEDS: INSULIN REGULAR 100 UNITS/ML, 3ML VIAL SQ-INSULIN SCH ×4 (04:23→21:15)
[2018-09-20 04:44] LABS: MEAN CORPUSCULAR HEMOGLOBIN 29.2 pg (27.0-34.8); MEAN CORPUSCULAR HGB CONC 33.2 g/dL (32.4-35.8); MEAN CORPUSCULAR VOLUME 87.9 fL (80-100); PLATELET COUNT 284 x10^3/uL (130-400); RED BLOOD COUNT 3.43 x10^6/uL (3.82-5.3); RED CELL DISTRIBUTION WIDTH 13.3 % (9.6-15.2)
[2018-09-20 04:56] LABS: CALCIUM 6.9 mg/dL (8.5-10.1); CHLORIDE 105 mmol/L (98-107)
[2018-09-20 05:00] VITALS: BP 133/42
[2018-09-20 05:00] LABS: ANION GAP 5 mmol/L (5-15); CREATININE 1.06 mg/dL (0.55-1.02); TRIGLYCERIDES 95 mg/dL (50-200)
[2018-09-20 05:20] LABS: BASOPHILS % (AUTO) 0 % (0-1); EOSINOPHILS % (AUTO) 0 % (1-7); LYMPHOCYTES # (AUTO) 0.24 x10^3/uL (1-3.4); LYMPHOCYTES % (AUTO) 1 % (22-44); MD SCAN; MONOCYTES # (AUTO) 0.32 x10^3/uL (0.2-0.8); MONOCYTES % (AUTO) 1 % (2-9); NEUTROPHILS # (AUTO) 32.26 x10^3/uL (1.8-6.8); NEUTROPHILS % (AUTO) 98 % (42-75)
[2018-09-20] MEDS: CARVEDILOL 25 MG TABLET PO SCH ×2 (06:30→17:36)
[2018-09-20] MEDS: AMLODIPINE 10 MG TAB PO SCH (09:07)
[2018-09-20] MEDS: ISOSORBIDE DINITRATE 20 MG TABLET PO SCH ×3 (09:07→21:12)
[2018-09-20] MEDS: DOCUSATE 50 MG/5 ML, 10ML UDC PO SCH (09:08)
[2018-09-20] MEDS: CALCIUM CARBONATE 500 MG TABLET PO SCH ×3 (09:08→21:12)
[2018-09-20] MEDS: CALCITRIOL 1 MCG/ML SOL PO SCH ×2 (09:08→21:11)
[2018-09-20] MEDS: MORPHINE SULFATE 4 MG/ML, 1ML IV PRN (15:47)
[2018-09-20] MEDS: ACETAMINOPHEN 325 MG TABLET PO PRN (19:17)
[2018-09-20] MEDS: SENNOSIDES 8.8 MG/5 ML ORAL SOL NG SCH (21:11)
[2018-09-20] MEDS: ATORVASTATIN 40 MG TABLET PO SCH (21:12)
[2018-09-20] MEDS: MIRTAZAPINE 30 MG TAB.RAPDIS PO SCH (21:12)
[2018-09-20] MEDS: INSULIN GLARGINE 100 UNITS/ML, PEN SQ-INSULIN SCH (21:13)
[2018-09-21] MEDS: AMPICILLIN/SULBACTAM 3 GM in SODIUM CHLORIDE 0.9% 100 ML IV SCH ×4 (03:13→21:45)
[2018-09-21] MEDS: FAMOTIDINE 20 MG/2 ML IV SCH (03:13)
[2018-09-21] MEDS: MORPHINE SULFATE 4 MG/ML, 1ML IV PRN ×3 (03:13→18:23)
[2018-09-21 04:00] VITALS: BP 133/46
[2018-09-21 04:41] LABS: MEAN CORPUSCULAR HEMOGLOBIN 29.6 pg (27.0-34.8); MEAN CORPUSCULAR HGB CONC 33.8 g/dL (32.4-35.8); MEAN CORPUSCULAR VOLUME 87.4 fL (80-100); PLATELET COUNT 275 x10^3/uL (130-400); RED CELL DISTRIBUTION WIDTH 13.4 % (9.6-15.2)
[2018-09-21 04:43] LABS: ANION GAP 7 mmol/L (5-15); CALCIUM 7.7 mg/dL (8.5-10.1); CHLORIDE 104 mmol/L (98-107); CREATININE 1.14 mg/dL (0.55-1.02)
[2018-09-21] MEDS: INSULIN REGULAR 100 UNITS/ML, 3ML VIAL SQ-INSULIN SCH ×4 (05:07→20:44)
[2018-09-21 05:08] LABS: BASOPHILS % (AUTO) 0 % (0-1); EOSINOPHILS % (AUTO) 0 % (1-7); LYMPHOCYTES # (AUTO) 0.29 x10^3/uL (1-3.4); LYMPHOCYTES % (AUTO) 2 % (22-44); MD SCAN; MONOCYTES # (AUTO) 0.39 x10^3/uL (0.2-0.8); MONOCYTES % (AUTO) 2 % (2-9); NEUTROPHILS % (AUTO) 96 % (42-75)
[2018-09-21] MEDS: CARVEDILOL 25 MG TABLET PO SCH ×2 (05:55→16:52)
[2018-09-21] MEDS: DEXAMETHASONE 10 MG in SODIUM CHLORIDE 0.9% 50 ML IV SCH (07:15)
[2018-09-21] MEDS: AMLODIPINE 10 MG TAB PO SCH (09:01)
[2018-09-21] MEDS: ISOSORBIDE DINITRATE 20 MG TABLET PO SCH ×3 (09:01→20:36)
[2018-09-21] MEDS: DOCUSATE 50 MG/5 ML, 10ML UDC PO SCH ×2 (09:02→20:36)
[2018-09-21] MEDS: CALCIUM CARBONATE 500 MG TABLET PO SCH ×3 (09:02→20:37)
[2018-09-21] MEDS: CALCITRIOL 1 MCG/ML SOL PO SCH ×2 (09:34→20:36)
[2018-09-21] MEDS: ATORVASTATIN 40 MG TABLET PO SCH (20:36)
[2018-09-21] MEDS: MIRTAZAPINE 30 MG TAB.RAPDIS PO SCH (20:37)
[2018-09-21] MEDS: INSULIN GLARGINE 100 UNITS/ML, PEN SQ-INSULIN SCH (20:44)
[2018-09-21] MEDS: TEMAZEPAM 15 MG CAPSULE PO PRN (20:52)
[2018-09-21] MEDS: OXYcodone 5 MG/5 ML ORAL.SOL UDC PO PRN (20:52)
[2018-09-22 04:00] VITALS: BP 122/47
[2018-09-22] MEDS: FAMOTIDINE 20 MG/2 ML IV SCH (04:36)
[2018-09-22] MEDS: AMPICILLIN/SULBACTAM 3 GM in SODIUM CHLORIDE 0.9% 100 ML IV SCH ×4 (04:37→21:05)
[2018-09-22] MEDS: INSULIN REGULAR 100 UNITS/ML, 3ML VIAL SQ-INSULIN SCH ×4 (04:37→23:00)
[2018-09-22 04:49] LABS: ANION GAP 6 mmol/L (5-15); CALCIUM 7.2 mg/dL (8.5-10.1); CHLORIDE 104 mmol/L (98-107); CREATININE 0.99 mg/dL (0.55-1.02)
[2018-09-22 04:55] LABS: MEAN CORPUSCULAR HEMOGLOBIN 28.8 pg (27.0-34.8); MEAN CORPUSCULAR HGB CONC 32.8 g/dL (32.4-35.8); MEAN CORPUSCULAR VOLUME 87.9 fL (80-100); MEAN PLATELET VOLUME 9.1 fL (7.4-10.4); PLATELET COUNT 252 x10^3/uL (130-400); RED BLOOD COUNT 3.56 x10^6/uL (3.82-5.3); RED CELL DISTRIBUTION WIDTH 13.2 % (9.6-15.2)
[2018-09-22 05:41] LABS: BASOPHILS % (AUTO) 0 % (0-1); EOSINOPHILS # (AUTO) 0.01 x10^3/uL (0-0.4); EOSINOPHILS % (AUTO) 0 % (1-7); LYMPHOCYTES # (AUTO) 0.46 x10^3/uL (1-3.4); LYMPHOCYTES % (AUTO) 4 % (22-44); MD SCAN; MONOCYTES # (AUTO) 0.64 x10^3/uL (0.2-0.8); MONOCYTES % (AUTO) 5 % (2-9); NEUTROPHILS # (AUTO) 11.95 x10^3/uL (1.8-6.8); NEUTROPHILS % (AUTO) 91 % (42-75)
[2018-09-22] MEDS: CARVEDILOL 25 MG TABLET PO SCH ×2 (05:44→17:49)
[2018-09-22] MEDS: AMLODIPINE 10 MG TAB PO SCH (08:43)
[2018-09-22] MEDS: CALCITRIOL 1 MCG/ML SOL PO SCH ×2 (08:44→21:05)
[2018-09-22] MEDS: DOCUSATE 50 MG/5 ML, 10ML UDC PO SCH ×2 (08:44→21:05)
[2018-09-22] MEDS: ISOSORBIDE DINITRATE 20 MG TABLET PO SCH ×3 (08:44→21:05)
[2018-09-22] MEDS: CALCIUM CARBONATE 500 MG TABLET PO SCH ×3 (08:45→23:34)
[2018-09-22] MEDS: OXYcodone 5 MG/5 ML ORAL.SOL UDC PO PRN ×3 (10:04→20:05)
[2018-09-22] MEDS: MIRTAZAPINE 30 MG TAB.RAPDIS PO SCH (21:05)
[2018-09-22] MEDS: ATORVASTATIN 40 MG TABLET PO SCH (21:05)
[2018-09-22] MEDS: INSULIN GLARGINE 100 UNITS/ML, PEN SQ-INSULIN SCH (21:08)
[2018-09-22] MEDS: TEMAZEPAM 15 MG CAPSULE PO PRN (23:34)
[2018-09-23] MEDS: OXYcodone 5 MG/5 ML ORAL.SOL UDC PO PRN (00:08)
[2018-09-23] MEDS: AMPICILLIN/SULBACTAM 3 GM in SODIUM CHLORIDE 0.9% 100 ML IV SCH ×4 (03:27→23:18)
[2018-09-23] MEDS: FAMOTIDINE 20 MG/2 ML IV SCH (03:27)
[2018-09-23 04:00] VITALS: BP 116/42
[2018-09-23 04:26] LABS: BASOPHILS # (AUTO) 0.03 x10^3/uL (0-0.1); BASOPHILS % (AUTO) 0 % (0-1); EOSINOPHILS # (AUTO) 0.23 x10^3/uL (0-0.4); EOSINOPHILS % (AUTO) 3 % (1-7); LYMPHOCYTES # (AUTO) 0.56 x10^3/uL (1-3.4); LYMPHOCYTES % (AUTO) 6 % (22-44); MD NO; MEAN CORPUSCULAR HEMOGLOBIN 29.2 pg (27.0-34.8); MEAN CORPUSCULAR HGB CONC 33.5 g/dL (32.4-35.8); MEAN CORPUSCULAR VOLUME 87.2 fL (80-100); MEAN PLATELET VOLUME 9.2 fL (7.4-10.4); MONOCYTES # (AUTO) 0.79 x10^3/uL (0.2-0.8); MONOCYTES % (AUTO) 9 % (2-9); NEUTROPHILS % (AUTO) 82 % (42-75); PLATELET COUNT 276 x10^3/uL (130-400); RED BLOOD COUNT 3.54 x10^6/uL (3.82-5.3); RED CELL DISTRIBUTION WIDTH 13.5 % (9.6-15.2)
[2018-09-23 04:39] LABS: ANION GAP 6 mmol/L (5-15); CHLORIDE 102 mmol/L (98-107)
[2018-09-23 04:40] LABS: CREATININE 0.96 mg/dL (0.55-1.02); TRIGLYCERIDES 197 mg/dL (50-200)
[2018-09-23] MEDS: INSULIN REGULAR 100 UNITS/ML, 3ML VIAL SQ-INSULIN SCH ×4 (05:00→23:00)
[2018-09-23] MEDS: CARVEDILOL 25 MG TABLET PO SCH ×2 (06:09→16:54)
[2018-09-23] MEDS: ISOSORBIDE DINITRATE 20 MG TABLET PO SCH ×3 (07:42→21:00)
[2018-09-23] MEDS: DOCUSATE 50 MG/5 ML, 10ML UDC PO SCH ×2 (07:42→21:00)
[2018-09-23] MEDS: AMLODIPINE 10 MG TAB PO SCH (07:42)
[2018-09-23] MEDS: CALCIUM CARBONATE 500 MG TABLET PO SCH ×3 (07:42→21:00)
[2018-09-23] MEDS: CALCITRIOL 1 MCG/ML SOL PO SCH ×2 (09:00→21:00)
[2018-09-23] MEDS: DEXTROSE 5% 500 ML IV SCH (13:14)
[2018-09-23] MEDS: FENTANYL PF 100 MCG/2ML IVPush PRN (13:14)
[2018-09-23] MEDS: D5%-0.45% NACL 1,000 ML IV SCH (16:54)
[2018-09-23] MEDS: ATORVASTATIN 40 MG TABLET PO SCH (21:00)
[2018-09-23] MEDS: INSULIN GLARGINE 100 UNITS/ML, PEN SQ-INSULIN SCH (21:00)
[2018-09-23] MEDS: MIRTAZAPINE 30 MG TAB.RAPDIS PO SCH (21:00)
[2018-09-23] MEDS ORDERED: BUPIVACAINE/PF 0.5% ONE (21:07)
[2018-09-23] MEDS ORDERED: ROCURONIUM 10MG/ML,5ML ONE (21:19)
[2018-09-23] MEDS ORDERED: LACTATED RINGERS 1,000 ML ONE (21:19)
[2018-09-23] MEDS ORDERED: FENTANYL PF 250 MCG/5ML ONE (21:27)
[2018-09-24] MEDS: FENTANYL PF 100 MCG/2ML IVPush PRN ×5 (00:08→19:34)
[2018-09-24 04:00] VITALS: BP 141/57
[2018-09-24] MEDS: FAMOTIDINE 20 MG/2 ML IV SCH (04:12)
[2018-09-24] MEDS: AMPICILLIN/SULBACTAM 3 GM in SODIUM CHLORIDE 0.9% 100 ML IV SCH (04:12)
[2018-09-24 04:32] LABS: MEAN CORPUSCULAR HGB CONC 33.4 g/dL (32.4-35.8); MEAN CORPUSCULAR VOLUME 86.9 fL (80-100); MEAN PLATELET VOLUME 9.2 fL (7.4-10.4); PLATELET COUNT 242 x10^3/uL (130-400); RED BLOOD COUNT 3.47 x10^6/uL (3.82-5.3); RED CELL DISTRIBUTION WIDTH 13.4 % (9.6-15.2)
[2018-09-24] MEDS: DEXTROSE 5% 500 ML IV SCH (04:40)
[2018-09-24 04:47] LABS: BASOPHILS # (AUTO) 0.06 x10^3/uL (0-0.1); BASOPHILS % (AUTO) 0 % (0-1); EOSINOPHILS # (AUTO) 0.17 x10^3/uL (0-0.4); EOSINOPHILS % (AUTO) 1 % (1-7); LYMPHOCYTES # (AUTO) 0.41 x10^3/uL (1-3.4); LYMPHOCYTES % (AUTO) 3 % (22-44); MD SCAN; MONOCYTES # (AUTO) 0.53 x10^3/uL (0.2-0.8); MONOCYTES % (AUTO) 4 % (2-9); NEUTROPHILS # (AUTO) 12.12 x10^3/uL (1.8-6.8); NEUTROPHILS % (AUTO) 91 % (42-75)
[2018-09-24 04:52] LABS: ANION GAP 7 mmol/L (5-15); CALCIUM 6.8 mg/dL (8.5-10.1); CHLORIDE 103 mmol/L (98-107)
[2018-09-24] MEDS: INSULIN REGULAR 100 UNITS/ML, 3ML VIAL SQ-INSULIN SCH ×4 (04:53→21:10)
[2018-09-24] MEDS: D5%-0.45% NACL 1,000 ML IV SCH ×2 (04:53→14:26)
[2018-09-24 04:54] LABS: CREATININE 0.91 mg/dL (0.55-1.02)
[2018-09-24] MEDS: CARVEDILOL 25 MG TABLET PO SCH ×2 (04:54→18:40)
[2018-09-24] MEDS: DOCUSATE 50 MG/5 ML, 10ML UDC PO SCH ×2 (10:13→21:19)
[2018-09-24] MEDS: AMLODIPINE 10 MG TAB PO SCH (10:13)
[2018-09-24] MEDS: ENOXAPARIN 40 MG/0.4 ML SQ SCH (10:14)
[2018-09-24] MEDS: CALCIUM CARBONATE 500 MG TABLET PO SCH ×3 (10:14→21:18)
[2018-09-24] MEDS: ISOSORBIDE DINITRATE 20 MG TABLET PO SCH ×3 (10:14→21:18)
[2018-09-24] MEDS: CALCITRIOL 1 MCG/ML SOL PO SCH ×2 (10:16→21:18)
[2018-09-24] MEDS: ATORVASTATIN 40 MG TABLET PO SCH (21:18)
[2018-09-24] MEDS: MIRTAZAPINE 30 MG TAB.RAPDIS PO SCH (21:18)
[2018-09-24] MEDS: INSULIN GLARGINE 100 UNITS/ML, PEN SQ-INSULIN SCH (21:19)
[2018-09-25] MEDS: TEMAZEPAM 15 MG CAPSULE PO PRN (01:00)
[2018-09-25] MEDS: OXYcodone 5 MG/5 ML ORAL.SOL UDC PO PRN ×2 (01:00→12:10)
[2018-09-25] MEDS ORDERED: SODIUM CHLORIDE 0.9% 1,000ML IVBOLUS ONE (03:00)
[2018-09-25] MEDS: FAMOTIDINE 20 MG/2 ML IV SCH (03:04)
[2018-09-25] MEDS ORDERED: NOREPINEPHRINE 4 MG in SODIUM CHLORIDE 0.9% 246 ML IV PRN (03:30)
[2018-09-25 04:00] VITALS: BP 105/39
[2018-09-25] MEDS: D5%-0.45% NACL 1,000 ML IV SCH (04:12)
[2018-09-25 04:34] LABS: ANION GAP 4 mmol/L (5-15); CALCIUM 6.8 mg/dL (8.5-10.1); CHLORIDE 106 mmol/L (98-107); CREATININE 0.75 mg/dL (0.55-1.02)
[2018-09-25 04:37] LABS: MEAN CORPUSCULAR HEMOGLOBIN 28.8 pg (27.0-34.8); MEAN CORPUSCULAR HGB CONC 33.2 g/dL (32.4-35.8); MEAN CORPUSCULAR VOLUME 86.8 fL (80-100); MEAN PLATELET VOLUME 9.2 fL (7.4-10.4); PLATELET COUNT 218 x10^3/uL (130-400); RED BLOOD COUNT 2.85 x10^6/uL (3.82-5.3); RED CELL DISTRIBUTION WIDTH 13.5 % (9.6-15.2)
[2018-09-25] MEDS: INSULIN REGULAR 100 UNITS/ML, 3ML VIAL SQ-INSULIN SCH ×4 (05:00→21:30)
[2018-09-25] MEDS: CARVEDILOL 25 MG TABLET PO SCH ×2 (05:49→17:09)
[2018-09-25 06:04] LABS: BASOPHILS # (AUTO) 0.01 x10^3/uL (0-0.1); BASOPHILS % (AUTO) 0 % (0-1); EOSINOPHILS # (AUTO) 0.19 x10^3/uL (0-0.4); EOSINOPHILS % (AUTO) 2 % (1-7); LYMPHOCYTES # (AUTO) 0.53 x10^3/uL (1-3.4); LYMPHOCYTES % (AUTO) 5 % (22-44); MD SCAN; MONOCYTES # (AUTO) 0.45 x10^3/uL (0.2-0.8); MONOCYTES % (AUTO) 4 % (2-9); NEUTROPHILS % (AUTO) 89 % (42-75)
[2018-09-25] MEDS: ISOSORBIDE DINITRATE 20 MG TABLET PO SCH ×3 (08:57→21:27)
[2018-09-25] MEDS: DOCUSATE 50 MG/5 ML, 10ML UDC PO SCH ×2 (08:57→21:27)
[2018-09-25] MEDS: AMLODIPINE 10 MG TAB PO SCH (08:57)
[2018-09-25] MEDS: CALCITRIOL 1 MCG/ML SOL PO SCH ×2 (08:58→21:27)
[2018-09-25] MEDS: ENOXAPARIN 40 MG/0.4 ML SQ SCH (08:58)
[2018-09-25] MEDS: CALCIUM CARBONATE 500 MG TABLET PO SCH (08:58)
[2018-09-25] MEDS: CALCIUM CARBONATE 500 MG/5 ML PO SCH ×2 (17:09→21:27)
[2018-09-25] MEDS: MIRTAZAPINE 30 MG TAB.RAPDIS PO SCH (21:27)
[2018-09-25] MEDS: ATORVASTATIN 40 MG TABLET PO SCH (21:28)
[2018-09-25] MEDS: INSULIN GLARGINE 100 UNITS/ML, PEN SQ-INSULIN SCH (21:30)
[2018-09-26 04:20] VITALS: BP 122/47
[2018-09-26] MEDS: INSULIN REGULAR 100 UNITS/ML, 3ML VIAL SQ-INSULIN SCH ×4 (04:30→22:12)
[2018-09-26 04:36] LABS: BASOPHILS % (AUTO) 0 % (0-1); EOSINOPHILS # (AUTO) 0.16 x10^3/uL (0-0.4); EOSINOPHILS % (AUTO) 2 % (1-7); LYMPHOCYTES # (AUTO) 0.48 x10^3/uL (1-3.4); LYMPHOCYTES % (AUTO) 6 % (22-44); MD NO; MEAN CORPUSCULAR HEMOGLOBIN 29.4 pg (27.0-34.8); MEAN CORPUSCULAR HGB CONC 33.7 g/dL (32.4-35.8); MEAN CORPUSCULAR VOLUME 87.3 fL (80-100); MEAN PLATELET VOLUME 9.2 fL (7.4-10.4); MONOCYTES # (AUTO) 0.54 x10^3/uL (0.2-0.8); MONOCYTES % (AUTO) 7 % (2-9); NEUTROPHILS # (AUTO) 6.71 x10^3/uL (1.8-6.8); NEUTROPHILS % (AUTO) 85 % (42-75); PLATELET COUNT 236 x10^3/uL (130-400); RED BLOOD COUNT 2.82 x10^6/uL (3.82-5.3); RED CELL DISTRIBUTION WIDTH 12.9 % (9.6-15.2)
[2018-09-26 04:44] LABS: ANION GAP 6 mmol/L (5-15); CALCIUM 7.5 mg/dL (8.5-10.1); CHLORIDE 106 mmol/L (98-107)
[2018-09-26] MEDS: FAMOTIDINE 20 MG/2 ML IV SCH (04:44)
[2018-09-26 04:47] LABS: CREATININE 0.79 mg/dL (0.55-1.02); TRIGLYCERIDES 135 mg/dL (50-200)
[2018-09-26] MEDS: CARVEDILOL 25 MG TABLET PO SCH ×2 (05:58→18:01)
[2018-09-26] MEDS: ISOSORBIDE DINITRATE 20 MG TABLET PO SCH ×3 (08:58→22:12)
[2018-09-26] MEDS: AMLODIPINE 10 MG TAB PO SCH (08:58)
[2018-09-26] MEDS: DOCUSATE 50 MG/5 ML, 10ML UDC PO SCH ×2 (08:58→22:12)
[2018-09-26] MEDS: CALCIUM CARBONATE 500 MG/5 ML PO SCH ×3 (08:59→22:11)
[2018-09-26] MEDS: ENOXAPARIN 40 MG/0.4 ML SQ SCH (08:59)
[2018-09-26] MEDS: CALCITRIOL 1 MCG/ML SOL PO SCH ×2 (08:59→22:11)
[2018-09-26] MEDS: ACETAMINOPHEN 325 MG TABLET PO PRN (18:00)
[2018-09-26] MEDS: ATORVASTATIN 40 MG TABLET PO SCH (22:11)
[2018-09-26] MEDS: MIRTAZAPINE 30 MG TAB.RAPDIS PO SCH (22:11)
[2018-09-26] MEDS: D5%-0.45% NACL 1,000 ML IV SCH (22:11)
[2018-09-26] MEDS: INSULIN GLARGINE 100 UNITS/ML, PEN SQ-INSULIN SCH (22:12)
[2018-09-27 04:00] VITALS: BP 105/43
[2018-09-27 04:06] LABS: BASOPHILS # (AUTO) 0.01 x10^3/uL (0-0.1); BASOPHILS % (AUTO) 0 % (0-1); EOSINOPHILS # (AUTO) 0.18 x10^3/uL (0-0.4); EOSINOPHILS % (AUTO) 3 % (1-7); LYMPHOCYTES # (AUTO) 0.45 x10^3/uL (1-3.4); LYMPHOCYTES % (AUTO) 7 % (22-44); MD NO; MEAN CORPUSCULAR HEMOGLOBIN 28.4 pg (27.0-34.8); MEAN CORPUSCULAR HGB CONC 32.9 g/dL (32.4-35.8); MEAN CORPUSCULAR VOLUME 86.3 fL (80-100); MEAN PLATELET VOLUME 9.2 fL (7.4-10.4); MONOCYTES # (AUTO) 0.41 x10^3/uL (0.2-0.8); MONOCYTES % (AUTO) 7 % (2-9); NEUTROPHILS # (AUTO) 5.11 x10^3/uL (1.8-6.8); NEUTROPHILS % (AUTO) 83 % (42-75); PLATELET COUNT 287 x10^3/uL (130-400); RED BLOOD COUNT 3.05 x10^6/uL (3.82-5.3); RED CELL DISTRIBUTION WIDTH 13.2 % (9.6-15.2)
[2018-09-27 04:14] LABS: ANION GAP 5 mmol/L (5-15); CALCIUM 7.7 mg/dL (8.5-10.1); CHLORIDE 109 mmol/L (98-107); CREATININE 0.78 mg/dL (0.55-1.02)
[2018-09-27] MEDS: INSULIN REGULAR 100 UNITS/ML, 3ML VIAL SQ-INSULIN SCH ×4 (04:50→22:59)
[2018-09-27] MEDS: FAMOTIDINE 20 MG/2 ML IV SCH (05:30)
[2018-09-27] MEDS: CARVEDILOL 25 MG TABLET PO SCH ×2 (05:30→16:12)
[2018-09-27] MEDS: AMLODIPINE 10 MG TAB PO SCH (08:35)
[2018-09-27] MEDS: DOCUSATE 50 MG/5 ML, 10ML UDC PO SCH ×2 (08:35→21:02)
[2018-09-27] MEDS: ISOSORBIDE DINITRATE 20 MG TABLET PO SCH ×3 (08:36→21:03)
[2018-09-27] MEDS: ENOXAPARIN 40 MG/0.4 ML SQ SCH (08:36)
[2018-09-27] MEDS: CALCIUM CARBONATE 500 MG/5 ML PO SCH ×3 (08:36→21:02)
[2018-09-27] MEDS: CALCITRIOL 1 MCG/ML SOL PO SCH ×2 (08:37→21:02)
[2018-09-27] MEDS: D5%-0.45% NACL 1,000 ML IV SCH (19:22)
[2018-09-27] MEDS: MIRTAZAPINE 30 MG TAB.RAPDIS PO SCH (21:03)
[2018-09-27] MEDS: FAMOTIDINE 20 MG TABLET PO SCH (21:03)
[2018-09-27] MEDS: ATORVASTATIN 40 MG TABLET PO SCH (21:03)
[2018-09-27] MEDS: INSULIN GLARGINE 100 UNITS/ML, PEN SQ-INSULIN SCH (21:04)
[2018-09-28 04:00] VITALS: BP 142/51
[2018-09-28 04:32] LABS: O2 FLOW 10 L/min
[2018-09-28 04:45] LABS: BASOPHILS % (AUTO) 0 % (0-1); EOSINOPHILS # (AUTO) 0.03 x10^3/uL (0-0.4); EOSINOPHILS % (AUTO) 0 % (1-7); LYMPHOCYTES # (AUTO) 0.38 x10^3/uL (1-3.4); LYMPHOCYTES % (AUTO) 4 % (22-44); MD NO; MEAN CORPUSCULAR HGB CONC 33.2 g/dL (32.4-35.8); MEAN CORPUSCULAR VOLUME 87.5 fL (80-100); MONOCYTES % (AUTO) 4 % (2-9); NEUTROPHILS # (AUTO) 9.28 x10^3/uL (1.8-6.8); NEUTROPHILS % (AUTO) 92 % (42-75); PLATELET COUNT 294 x10^3/uL (130-400); RED BLOOD COUNT 3.27 x10^6/uL (3.82-5.3)
[2018-09-28 04:53] LABS: ANION GAP 7 mmol/L (5-15); CALCIUM 8.5 mg/dL (8.5-10.1); CHLORIDE 108 mmol/L (98-107)
[2018-09-28 04:54] LABS: CREATININE 0.73 mg/dL (0.55-1.02)
[2018-09-28] MEDS: INSULIN REGULAR 100 UNITS/ML, 3ML VIAL SQ-INSULIN SCH ×4 (05:00→23:00)
[2018-09-28] MEDS: CARVEDILOL 25 MG TABLET PO SCH ×2 (05:54→17:18)
[2018-09-28] MEDS: FAMOTIDINE 20 MG TABLET PO SCH ×2 (08:39→20:47)
[2018-09-28] MEDS: CALCITRIOL 1 MCG/ML SOL PO SCH ×2 (08:39→20:46)
[2018-09-28] MEDS: CALCIUM CARBONATE 500 MG/5 ML PO SCH ×3 (08:40→20:46)
[2018-09-28] MEDS: ISOSORBIDE DINITRATE 20 MG TABLET PO SCH ×3 (08:40→20:47)
[2018-09-28] MEDS: DOCUSATE 50 MG/5 ML, 10ML UDC PO SCH ×2 (08:40→20:46)
[2018-09-28] MEDS: AMLODIPINE 10 MG TAB PO SCH (08:40)
[2018-09-28] MEDS: ENOXAPARIN 40 MG/0.4 ML SQ SCH (08:40)
[2018-09-28] MEDS: ACETAMINOPHEN 325 MG TABLET PO PRN (11:43)
[2018-09-28] MEDS: D5%-0.45% NACL 1,000 ML IV SCH (15:38)
[2018-09-28] MEDS: ATORVASTATIN 40 MG TABLET PO SCH (20:47)
[2018-09-28] MEDS: MIRTAZAPINE 30 MG TAB.RAPDIS PO SCH (20:47)
[2018-09-28] MEDS: INSULIN GLARGINE 100 UNITS/ML, PEN SQ-INSULIN SCH (20:47)
[2018-09-29] MEDS: hydrALAzine 20 MG/ML, 1ML IV PRN (00:05)
[2018-09-29] MEDS: TEMAZEPAM 15 MG CAPSULE PO PRN (00:05)
[2018-09-29] MEDS: LIDOCAINE-MPF 1%, 2ML ENDO PRN (01:26)
[2018-09-29 04:00] VITALS: BP 148/61
[2018-09-29 04:27] LABS: MEAN CORPUSCULAR HEMOGLOBIN 28.4 pg (27.0-34.8); MEAN CORPUSCULAR HGB CONC 32.7 g/dL (32.4-35.8); MEAN PLATELET VOLUME 8.4 fL (7.4-10.4); PLATELET COUNT 297 x10^3/uL (130-400); RED BLOOD COUNT 3.37 x10^6/uL (3.82-5.3); RED CELL DISTRIBUTION WIDTH 13.2 % (9.6-15.2)
[2018-09-29 04:40] LABS: ANION GAP 3 mmol/L (5-15); CALCIUM 9.4 mg/dL (8.5-10.1); CHLORIDE 106 mmol/L (98-107)
[2018-09-29 04:42] LABS: MD YES
[2018-09-29 04:43] LABS: <PLATELET ESTIMATE> ADEQUATE; <PLT MORPHOLOGY> NORMAL PLT MORPH; <RBC MORPHOLOGY> NORMAL; BAND#(MANUAL) 0.29 x10^3/uL; BANDS%(MANUAL) 2 % (0-7); EOS#(MANUAL) 0.15 x10^3/uL (0.0-0.4); EOS% (MANUAL) 1 % (1-7); LYMPH#(MANUAL) 0.59 x10^3/uL (1-3.4); LYMPHS% (MANUAL) 4 % (22-44); METAMYELOCYTES# (MANUAL) 0.15 x10^3/uL (0-0); METAMYELOCYTES% (MANUAL) 1 % (0-1); MONOS#(MANUAL) 0.15 x10^3/uL (0.3-2.7); MONOS% (MANUAL) 1 % (2-9); SEG#(MANUAL) 13.38 x10^3/uL (1.8-6.8); SEGS% (MANUAL) 91 % (42-75)
[2018-09-29 04:45] LABS: TRIGLYCERIDES 101 mg/dL (50-200)
[2018-09-29] MEDS: INSULIN REGULAR 100 UNITS/ML, 3ML VIAL SQ-INSULIN SCH ×4 (05:39→20:48)
[2018-09-29] MEDS: CARVEDILOL 25 MG TABLET PO SCH ×2 (06:41→19:18)
[2018-09-29] MEDS: FAMOTIDINE 20 MG TABLET PO SCH ×2 (08:47→20:33)
[2018-09-29] MEDS: ISOSORBIDE DINITRATE 20 MG TABLET PO SCH ×3 (08:47→20:33)
[2018-09-29] MEDS: ACETAMINOPHEN 325 MG TABLET PO PRN (08:47)
[2018-09-29] MEDS: DOCUSATE 50 MG/5 ML, 10ML UDC PO SCH ×2 (08:47→20:33)
[2018-09-29] MEDS: CALCITRIOL 1 MCG/ML SOL PO SCH ×2 (08:47→20:42)
[2018-09-29] MEDS: AMLODIPINE 10 MG TAB PO SCH (08:47)
[2018-09-29] MEDS: ENOXAPARIN 40 MG/0.4 ML SQ SCH (08:47)
[2018-09-29] MEDS: CALCIUM CARBONATE 500 MG/5 ML PO SCH ×3 (08:47→20:41)
[2018-09-29] MEDS: D5%-0.45% NACL 1,000 ML IV SCH (11:09)
[2018-09-29] MEDS: OXYcodone 5 MG/5 ML ORAL.SOL UDC PO PRN (15:45)
[2018-09-29] MEDS ORDERED: SODIUM CHLORIDE 0.9%, 500ML IVBOLUS ONE (17:00)
[2018-09-29] MEDS: ATORVASTATIN 40 MG TABLET PO SCH (20:33)
[2018-09-29] MEDS: MIRTAZAPINE 30 MG TAB.RAPDIS PO SCH (20:33)
[2018-09-29] MEDS: INSULIN GLARGINE 100 UNITS/ML, PEN SQ-INSULIN SCH (20:44)
[2018-09-30 04:27] LABS: BASOPHILS # (AUTO) 0.01 x10^3/uL (0-0.1); BASOPHILS % (AUTO) 0 % (0-1); EOSINOPHILS # (AUTO) 0.01 x10^3/uL (0-0.4); EOSINOPHILS % (AUTO) 0 % (1-7); LYMPHOCYTES # (AUTO) 0.46 x10^3/uL (1-3.4); LYMPHOCYTES % (AUTO) 6 % (22-44); MD NO; MEAN CORPUSCULAR HEMOGLOBIN 28.5 pg (27.0-34.8); MEAN CORPUSCULAR VOLUME 86.5 fL (80-100); MEAN PLATELET VOLUME 8.6 fL (7.4-10.4); MONOCYTES # (AUTO) 0.27 x10^3/uL (0.2-0.8); MONOCYTES % (AUTO) 3 % (2-9); NEUTROPHILS # (AUTO) 7.42 x10^3/uL (1.8-6.8); NEUTROPHILS % (AUTO) 91 % (42-75); PLATELET COUNT 320 x10^3/uL (130-400); RED BLOOD COUNT 3.06 x10^6/uL (3.82-5.3); RED CELL DISTRIBUTION WIDTH 13.4 % (9.6-15.2)
[2018-09-30 04:32] LABS: ANION GAP 4 mmol/L (5-15); CALCIUM 9.4 mg/dL (8.5-10.1); CHLORIDE 105 mmol/L (98-107)
[2018-09-30 04:33] LABS: CREATININE 0.69 mg/dL (0.55-1.02)
[2018-09-30] MEDS: INSULIN REGULAR 100 UNITS/ML, 3ML VIAL SQ-INSULIN SCH ×2 (05:00→10:56)
[2018-09-30] MEDS: CARVEDILOL 25 MG TABLET PO SCH (05:36)
[2018-09-30] MEDS: DOCUSATE 50 MG/5 ML, 10ML UDC PO SCH (08:32)
[2018-09-30] MEDS: ENOXAPARIN 40 MG/0.4 ML SQ SCH (08:32)
[2018-09-30] MEDS: ISOSORBIDE DINITRATE 20 MG TABLET PO SCH ×2 (08:32→16:01)
[2018-09-30] MEDS: FAMOTIDINE 20 MG TABLET PO SCH (08:32)
[2018-09-30] MEDS: AMLODIPINE 10 MG TAB PO SCH (08:32)
[2018-09-30] MEDS: D5%-0.45% NACL 1,000 ML IV SCH (08:32)
[2018-09-30] MEDS: CALCIUM CARBONATE 500 MG/5 ML PO SCH ×2 (08:33→16:00)
[2018-09-30] MEDS: CALCITRIOL 1 MCG/ML SOL PO SCH (08:33)
== END 2018-09-30 16:31 | DRG 3 ==
LOC: ORIP 06:02 → CCU 14:35 → 3NW 09-10 09:38 → 4EST 09-14 00:26 → CCU 09-14 02:08
PROVIDERS: ADMIT Surgery; ATTEND Surgery
PROC: 0GTG0ZZ Resection of Left Thyroid Gland Lobe, Open Approach (ICD-10-PCS; 2018-09-09)
PROC: 0BH18EZ Insertion of Endotracheal Airway into Trachea, Via Natural or Artificial Opening Endoscopic (ICD-10-PCS; 2018-09-09)
PROC: 07B20ZZ Excision of Left Neck Lymphatic, Open Approach (ICD-10-PCS; 2018-09-09)
PROC: 0GBH0ZZ Excision of Right Thyroid Gland Lobe, Open Approach (ICD-10-PCS; 2018-09-09)
PROC: 4A11X4G Monitoring of Peripheral Nervous Electrical Activity, Intraoperative, External Approach (ICD-10-PCS; 2018-09-09)
PROC: 5A1955Z Respiratory Ventilation, Greater than 96 Consecutive Hours (ICD-10-PCS; 2018-09-14)
PROC: 0T9B70Z Drainage of Bladder with Drainage Device, Via Natural or Artificial Opening (ICD-10-PCS; 2018-09-14)
PROC: 0W9630Z Drainage of Neck with Drainage Device, Percutaneous Approach (ICD-10-PCS; 2018-09-20)
PROC: 0DH64UZ Insertion of Feeding Device into Stomach, Percutaneous Endoscopic Approach (ICD-10-PCS; 2018-09-23)
PROC: 3E0G76Z Introduction of Nutritional Substance into Upper GI, Via Natural or Artificial Opening (ICD-10-PCS; 2018-09-23)
PROC: 5A1955Z Respiratory Ventilation, Greater than 96 Consecutive Hours (ICD-10-PCS; 2018-09-23)
PROC: 0B110F4 Bypass Trachea to Cutaneous with Tracheostomy Device, Open Approach (ICD-10-PCS; principal; 2018-09-23 15:00)
DX: C73 Malignant neoplasm of thyroid gland (principal); J96.01 Acute respiratory failure with hypoxia; J14 Pneumonia due to Hemophilus influenzae; C77.9 Secondary and unspecified malignant neoplasm of lymph node, unspecified; D68.69 Other thrombophilia; L76.32 Postprocedural hematoma of skin and subcutaneous tissue following other procedure; Z99.11 Dependence on respirator [ventilator] status; I50.22 Chronic systolic (congestive) heart failure; S14.8XXA Injury of other specified nerves of neck, initial encounter; E11.65 Type 2 diabetes mellitus with hyperglycemia; D64.9 Anemia, unspecified; E11.36 Type 2 diabetes mellitus with diabetic cataract; E88.09 Other disorders of plasma-protein metabolism, not elsewhere classified; I25.5 Ischemic cardiomyopathy; I25.10 Atherosclerotic heart disease of native coronary artery without angina pectoris; I11.0 Hypertensive heart disease with heart failure; I34.0 Nonrheumatic mitral (valve) insufficiency; I48.2 Chronic atrial fibrillation; J38.4 Edema of larynx; Y83.8 Other surgical procedures as the cause of abnormal reaction of the patient, or of later complication, without mention of misadventure at the time of the procedure; J38.00 Paralysis of vocal cords and larynx, unspecified; X58.XXXA Exposure to other specified factors, initial encounter; Z79.01 Long term (current) use of anticoagulants; Z91.14 Patient's other noncompliance with medication regimen; Z93.1 Gastrostomy status; Z95.3 Presence of xenogenic heart valve; Z95.810 Presence of automatic (implantable) cardiac defibrillator; Y93.89 Activity, other specified; Y92.89 Other specified places as the place of occurrence of the external cause
CPT/HCPCS: 10030; 36415; 36600; 70360; 71045; 74230; 75989; 76536; 80048; 80053; 81003; 82040; 82310; 82330; 82803; 82962; 83735; 83880; 83970; 84100; 84478; 85025; 86850; 86900; 87070; 87075; 87081; 87205; 88305; 88307; 88331; 90656; 94002; 94003; B4087; C1729; G0378; J0295; J0610; J0690; J1100; J1650; J1815; J2405; J2704; J3010; J3475; J3480; J3490; J7120; J7613; Q0162; C1760; J0330; J0360; J1200; J1940; J7030; J7040; J7060

== ENCOUNTER 2019-06-09 10:32 | Inpatient (IN) | payer MEDICARE, MEDICAID ==
[~2019-06-09] VITALS: Ht 162.6 cm; Wt 66.3 kg
[~2019-06-09 10:32] MED LIST changes: -AMLO10TA6 PO; +AMLO10TA8 PO; -AMLO2.5T3 PO; +AMLO2.5T5 PO; +LOSA50TA14 PO; -LOSA50TA7 PO; +WARF2.5T32 PO-COUM; -WARF2.5T73 PO-COUM
--- NOTE | 2019-06-09 11:11 | NUR ---
PT C/O SOB AND "FEELS LIKE I CAN'T BREATH". PT PRIMARY LANGUAGE IS ARABIC, SON AT BEDSIDE HELPING WITH COMMUNICATION. VSS. NAD.
--- NOTE | 2019-06-09 11:13 | NUR ---
MD AT BEDSIDE DISCUSSING POC WITH PT AND FAMILY.
[2019-06-09 11:49] LABS: BASOPHILS # (AUTO) 0.02 x10^3/uL (0-0.1); BASOPHILS % (AUTO) 0 % (0-1); EOSINOPHILS # (AUTO) 0.04 x10^3/uL (0-0.4); EOSINOPHILS % (AUTO) 1 % (1-7); LYMPHOCYTES # (AUTO) 0.49 x10^3/uL (1-3.4); LYMPHOCYTES % (AUTO) 8 % (22-44); MD NO; MEAN CORPUSCULAR HEMOGLOBIN 29.1 pg (27.0-34.8); MEAN CORPUSCULAR HGB CONC 32.3 g/dL (32.4-35.8); MEAN PLATELET VOLUME 8.8 fL (7.4-10.4); MONOCYTES # (AUTO) 0.28 x10^3/uL (0.2-0.8); MONOCYTES % (AUTO) 5 % (2-9); NEUTROPHILS # (AUTO) 5.21 x10^3/uL (1.8-6.8); NEUTROPHILS % (AUTO) 86 % (42-75); PLATELET COUNT 209 x10^3/uL (130-400); RED BLOOD COUNT 3.34 x10^6/uL (3.82-5.3); RED CELL DISTRIBUTION WIDTH 14.6 % (9.6-15.2)
[2019-06-09 12:03] LABS: ALANINE AMINOTRANSFERASE 27 U/L (12-78); ALBUMIN 3.4 g/dL (3.4-5.0); ANION GAP 4 mmol/L (5-15); CHLORIDE 100 mmol/L (98-107); CREATININE 0.94 mg/dL (0.55-1.02)
[2019-06-09 12:08] LABS: ALKALINE PHOSPHATASE 318 U/L (45-117); BILIRUBIN,TOTAL 0.5 mg/dL (0.2-1.0); TOTAL PROTEIN 7.2 g/dL (6.4-8.2); TROPONIN I < 0.015 ng/mL (0.000-0.045)
[2019-06-09 12:18] LABS: CALCIUM 6.1 mg/dL (8.5-10.1)
--- NOTE | 2019-06-09 12:36 | NUR ---
SPOKE WITH MD, HE REQUESTED A WALKING OX SAT WITH 2 L. NO IV AT THIS TIME, PER MD. VSShasta.
--- NOTE | 2019-06-09 12:56 | NUR ---
PT WAS AMBULATED THE LENGTH OF ONE HALLWAY AND BACK. PT OX SAT REMAINED STABLE RIGHT AROUND 97%, WITH 2 L OF OXYGEN ON WHILE WALKING. HOWEVER, PT REPORTED THAT SHE FELT INCREASED SOB AND WORK OF BREATHING. PT BACK IN ROOM, IN BED, NAD. NGUYEN.
--- NOTE | 2019-06-09 13:37 | NUR ---
FAMILY AT BEDSIDE, PT IS RESTING AND APPEARS CALM. VSS. IV STARTED.
[2019-06-09] MEDS ORDERED: ALPR0.25 PO (13:42)
[2019-06-09] MEDS ORDERED: LEVO88TA4 PO (13:44)
[2019-06-09] MEDS ORDERED: OMNIPAQUE 350 MG/ML, 100ML BOTTLE ONE ×2 (14:00→15:52)
--- NOTE | 2019-06-09 14:49 | NUR ---
[facility] DESIGNER #[id number] DR COLLINS AT BEDSIDE, TEST RESULTS, POC AND ADMIT VS OUTPATIENT DISCUSSED WITH PT AND FAMILY. QUESTIONS ANSWERED. PT AND FAMILY REQUEST TEATMENT IN PATIENT.
[2019-06-09] MEDS ORDERED: SODIUM CHLORIDE FLUSH 10ML SYR IVF PRN (15:30)
[2019-06-09] MEDS ORDERED: CALCIUM GLUCONATE 0.46MEQ/1ML IVPush ONE (16:00)
[2019-06-09] MEDS ORDERED: DEXTROSE 4 GM TAB.CHEW PO PRN (16:00)
[2019-06-09] MEDS ORDERED: GLUCAGON 1 MG IM PRN (16:00)
[2019-06-09] MEDS ORDERED: DEXTROSE 50%, 50ML SYRINGE IVPush PRN (16:00)
[2019-06-09] MEDS ORDERED: LIDOCAINE-MPF 1%, 5ML ONE (16:39)
[2019-06-09] MEDS ORDERED: CALCIUM GLUCONATE 4.6 MEQ/10 ML ONE (16:59)
[2019-06-09] MEDS ORDERED: FUROSEMIDE 40 MG/4 ML ONE (16:59)
[2019-06-09] MEDS ORDERED: CALCIUM GLUCONATE 4.6 MEQ in SODIUM CHLORIDE 0.9% 50 ML IV ONE (17:00)
--- NOTE | 2019-06-09 17:29 | NUR ---
REPORT GIVEN TO ROSITA.
[2019-06-09] MEDS: FUROSEMIDE 40 MG/4 ML IV SCH ×2 (17:38→21:49)
--- NOTE | 2019-06-09 17:52 | NUR ---
I SPOKE WITH CARLA IN PHARMACY REGARDING THE ERNA GLUC IV PUSH ORDER. SHE SAID THAT THIS IS A DUPLICATE ORDER BECAUSE THERE IS A ERNA GLUC PIGGY BACK THAT SHOULD BE GIVEN INSTEAD. I CALLED ROSITA DUNCAN ON 4TH FLOOR AND REPORTED THIS CHANGE. I CALLED PHARMACY AND REQUESTED THAT THEY SEND THE ERNA GLUC PIGGY BAG TO THE 4TH FLOOR.
[2019-06-09 18:02] VITALS: BP 154/85
--- NOTE | 2019-06-09 18:03 | NUR ---
NEW ROOM NUMBER GIVEN TO FAMILY. FAMILY LEFT PERSONAL OXYGEN TANK IN ED ROOM, DEDE DUNCAN TOOK THE TANK TO THE FAMILY ON THE 4TH FLOOR.
[2019-06-09] MEDS: INSULIN LISPRO 100 UNITS/ML, PEN SQ-INSULIN SCH ×2 (18:08→21:47)
[2019-06-09] MEDS: ISOSORBIDE DINITRATE 10 MG TABLET PO SCH ×2 (18:43→21:48)
[2019-06-09 19:43] VITALS: BP 138/76
[2019-06-09] MEDS: ATORVASTATIN 80 MG TABLET PO SCH (21:48)
[2019-06-09] MEDS: CARVEDILOL 25 MG TABLET PO SCH (21:48)
[2019-06-09] MEDS: MIRTAZAPINE 30 MG TABLET PO SCH (21:48)
[2019-06-09] MEDS: SODIUM CHLORIDE FLUSH 10ML SYR IVF SCH (21:49)
[2019-06-10 01:13] VITALS: BP 128/63
[2019-06-10] MEDS: LEVOTHYROXINE 88 MCG TABLET PO SCH (05:37)
[2019-06-10 06:50] VITALS: BP 139/62
[2019-06-10] MEDS: INSULIN LISPRO 100 UNITS/ML, PEN SQ-INSULIN SCH ×4 (07:48→21:00)
[2019-06-10] MEDS: FUROSEMIDE 40 MG/4 ML IV SCH ×3 (09:26→21:22)
[2019-06-10] MEDS: SODIUM CHLORIDE FLUSH 10ML SYR IVF SCH ×2 (09:26→21:22)
[2019-06-10] MEDS: ASPIRIN 81 MG TABLET EC PO SCH (09:28)
[2019-06-10] MEDS: ISOSORBIDE DINITRATE 10 MG TABLET PO SCH ×3 (09:28→21:23)
[2019-06-10] MEDS: CARVEDILOL 25 MG TABLET PO SCH ×2 (09:28→21:23)
[2019-06-10 12:27] VITALS: BP 169/68
[2019-06-10 13:09] VITALS: BP 151/65
[2019-06-10 21:00] VITALS: BP 162/65
[2019-06-10] MEDS: MIRTAZAPINE 30 MG TABLET PO SCH (21:22)
[2019-06-10] MEDS: ATORVASTATIN 80 MG TABLET PO SCH (21:23)
[2019-06-11] VITALS (7 sets, daily range): BP systolic 124–171; BP diastolic 59–78
[2019-06-11] MEDS: LEVOTHYROXINE 88 MCG TABLET PO SCH (05:43)
[2019-06-11] MEDS: FUROSEMIDE 40 MG/4 ML IV SCH ×3 (09:16→23:44)
[2019-06-11] MEDS: ISOSORBIDE DINITRATE 10 MG TABLET PO SCH ×3 (09:16→23:44)
[2019-06-11] MEDS: ASPIRIN 81 MG TABLET EC PO SCH (09:16)
[2019-06-11] MEDS: SODIUM CHLORIDE FLUSH 10ML SYR IVF SCH ×2 (09:17→21:08)
[2019-06-11] MEDS: INSULIN LISPRO 100 UNITS/ML, PEN SQ-INSULIN SCH ×4 (09:17→21:07)
[2019-06-11] MEDS: CARVEDILOL 25 MG TABLET PO SCH ×2 (09:17→21:06)
[2019-06-11] MEDS ORDERED: FUROSEMIDE 20 MG TABLET PO SCH (13:30)
[2019-06-11] MEDS: AMLODIPINE 2.5 MG TABLET PO SCH (16:37)
[2019-06-11] MEDS: LOSARTAN 50MG TABLET PO SCH (16:38)
[2019-06-11] MEDS: ATORVASTATIN 80 MG TABLET PO SCH (21:06)
[2019-06-11] MEDS: MIRTAZAPINE 30 MG TABLET PO SCH (21:06)
[2019-06-12 02:14] VITALS: BP 134/66
[2019-06-12] MEDS ORDERED: LEVOTHYROXINE 88 MCG TABLET PO SCH (06:00)
[2019-06-12 09:48] VITALS: BP 131/55
[2019-06-12] MEDS: FUROSEMIDE 40 MG/4 ML IV SCH ×2 (09:55→16:00)
[2019-06-12] MEDS: ASPIRIN 81 MG TABLET EC PO SCH (09:55)
[2019-06-12] MEDS: INSULIN LISPRO 100 UNITS/ML, PEN SQ-INSULIN SCH ×3 (09:56→16:00)
[2019-06-12] MEDS: LOSARTAN 50MG TABLET PO SCH (09:56)
[2019-06-12] MEDS: AMLODIPINE 2.5 MG TABLET PO SCH (09:56)
[2019-06-12] MEDS: ISOSORBIDE DINITRATE 10 MG TABLET PO SCH ×2 (09:56→16:00)
[2019-06-12] MEDS: CARVEDILOL 25 MG TABLET PO SCH (09:56)
[2019-06-12] MEDS: SODIUM CHLORIDE FLUSH 10ML SYR IVF SCH (09:57)
[2019-06-12 13:42] VITALS: BP 134/62
[2019-06-12] MEDS ORDERED: LEVO88TA2 PO (14:03)
[2019-06-12] MEDS ORDERED: FURO40TA6 PO (14:03)
[2019-06-24] MEDS ORDERED: LEVO125T PO (11:11)
[2019-06-24] MEDS ORDERED: FURO-93 PO (11:14)
[2019-06-29] MEDS ORDERED: ACET325T26 PO (16:06)
[2019-06-29] MEDS ORDERED: HYDR-3341 PO (16:06)
[2019-06-29] MEDS ORDERED: INSU100I11 SQ-INSULIN (16:06)
== END 2019-06-12 16:40 | disposition home health service (06) | DRG 189 ==
LOC: ED 13:07 → EDIP 15:15 → 4EST 17:56 → DCLOUNGE 06-12 16:36
PROVIDERS: ADMIT Internal Medicine; ATTEND Internal Medicine
PROC: 0W993ZX Drainage of Right Pleural Cavity, Percutaneous Approach, Diagnostic (ICD-10-PCS; principal; 2019-06-09)
DX: J96.21 Acute and chronic respiratory failure with hypoxia (principal); I50.42 Chronic combined systolic (congestive) and diastolic (congestive) heart failure; D68.69 Other thrombophilia; I25.5 Ischemic cardiomyopathy; T50.2X5A Adverse effect of carbonic-anhydrase inhibitors, benzothiadiazides and other diuretics, initial encounter; E83.51 Hypocalcemia; E78.5 Hyperlipidemia, unspecified; E83.52 Hypercalcemia; I11.0 Hypertensive heart disease with heart failure; E11.9 Type 2 diabetes mellitus without complications; D64.9 Anemia, unspecified; E78.00 Pure hypercholesterolemia, unspecified; I25.10 Atherosclerotic heart disease of native coronary artery without angina pectoris; I48.0 Paroxysmal atrial fibrillation; E03.9 Hypothyroidism, unspecified; Z99.81 Dependence on supplemental oxygen; Y92.89 Other specified places as the place of occurrence of the external cause; Z95.810 Presence of automatic (implantable) cardiac defibrillator; Z79.01 Long term (current) use of anticoagulants; Z85.850 Personal history of malignant neoplasm of thyroid; Z95.2 Presence of prosthetic heart valve
CPT/HCPCS: 32555; 36415; 36600; 71045; 71275; 76536; 80053; 82330; 82803; 82945; 82962; 82977; 83615; 83880; 84157; 84443; 84484; 85025; 87070; 87205; 88112; 88305; 89051; 93005; 93306; G0378; J1940; Q9967; J1815

== ENCOUNTER 2019-06-24 10:11 | Inpatient (IN) | payer MEDICARE, MEDICAID ==
[~2019-06-24] VITALS: Ht 162.6 cm; Wt 67.0 kg
[2019-06-29 13:26] VITALS: BP 167/65
== END 2019-06-29 18:28 | DRG 643 ==
LOC: ED 11:26 → 5SO 13:58 → 4EST 14:31 → 4WST 06-26 10:56
PROVIDERS: ADMIT Internal Medicine; ATTEND Internal Medicine
PROC: 0T9B70Z Drainage of Bladder with Drainage Device, Via Natural or Artificial Opening (ICD-10-PCS; principal; 2019-06-24)
DX: E89.0 Postprocedural hypothyroidism (principal); N17.0 Acute kidney failure with tubular necrosis; J96.21 Acute and chronic respiratory failure with hypoxia; D68.69 Other thrombophilia; I13.0 Hypertensive heart and chronic kidney disease with heart failure and stage 1 through stage 4 chronic kidney disease, or unspecified chronic kidney disease; I50.42 Chronic combined systolic (congestive) and diastolic (congestive) heart failure; Z99.11 Dependence on respirator [ventilator] status; D63.1 Anemia in chronic kidney disease; E11.22 Type 2 diabetes mellitus with diabetic chronic kidney disease; E78.00 Pure hypercholesterolemia, unspecified; E78.5 Hyperlipidemia, unspecified; E86.0 Dehydration; E87.5 Hyperkalemia; G47.00 Insomnia, unspecified; I25.10 Atherosclerotic heart disease of native coronary artery without angina pectoris; I25.5 Ischemic cardiomyopathy; I48.0 Paroxysmal atrial fibrillation; I49.5 Sick sinus syndrome; J44.9 Chronic obstructive pulmonary disease, unspecified; N18.9 Chronic kidney disease, unspecified; N28.1 Cyst of kidney, acquired; Z85.850 Personal history of malignant neoplasm of thyroid; Z95.1 Presence of aortocoronary bypass graft; Z95.3 Presence of xenogenic heart valve; Z95.810 Presence of automatic (implantable) cardiac defibrillator; Z99.81 Dependence on supplemental oxygen; E21.3 Hyperparathyroidism, unspecified
CPT/HCPCS: 36415; 71045; 76770; 80048; 80053; 81003; 82306; 82330; 82436; 82962; 83735; 83880; 83970; 84100; 84133; 84300; 84443; 84484; 85025; 93005; 94640; G0378; J0610; J1644; J2405; J7620; J1815; J7030

== ENCOUNTER 2019-09-14 16:41 | Emergency (ER) | payer MEDICARE, MEDICAID ==
[~2019-09-14] VITALS: Ht 162.6 cm; Wt 64.0 kg
[~2019-09-14 16:41] MED LIST changes: -ACET-1757 PO; +ACET-2065 PO; +ACET325T26 PO; +ALPR0.25 PO; +FURO-93 PO; +FURO40TA6 PO; +HYDR-3341 PO; +INSU100I11 SQ-INSULIN; +LEVO125T PO; +LEVO88TA2 PO
[2019-09-14] MEDS ORDERED: DIPH,PERTUSS(ACELL),TET VAC/PF 0.5 ML IM-VACC ONE ×2 (17:00→19:52)
[2019-09-14 17:38] LABS: BASOPHILS # (AUTO) 0.04 x10^3/uL (0-0.1); BASOPHILS % (AUTO) 1 % (0-1); EOSINOPHILS # (AUTO) 0.02 x10^3/uL (0-0.4); EOSINOPHILS % (AUTO) 0 % (1-7); LYMPHOCYTES # (AUTO) 0.61 x10^3/uL (1-3.4); LYMPHOCYTES % (AUTO) 10 % (22-44); MD NO; MEAN CORPUSCULAR HGB CONC 32.2 g/dL (32.4-35.8); MEAN CORPUSCULAR VOLUME 90.1 fL (80-100); MEAN PLATELET VOLUME 9.9 fL (7.4-10.4); MONOCYTES % (AUTO) 5 % (2-9); NEUTROPHILS # (AUTO) 5.06 x10^3/uL (1.8-6.8); NEUTROPHILS % (AUTO) 84 % (42-75); PLATELET COUNT 160 x10^3/uL (130-400); RED BLOOD COUNT 3.02 x10^6/uL (3.82-5.3); RED CELL DISTRIBUTION WIDTH 16.9 % (9.6-15.2)
[2019-09-14 17:44] LABS: ALANINE AMINOTRANSFERASE 25 U/L (12-78); ALBUMIN 3.4 g/dL (3.4-5.0); ANION GAP 5 mmol/L (5-15); CALCIUM 6.2 mg/dL (8.5-10.1); CHLORIDE 104 mmol/L (98-107); CREATININE 1.75 mg/dL (0.55-1.02)
[2019-09-14 17:49] LABS: ALKALINE PHOSPHATASE 300 U/L (45-117); BILIRUBIN,TOTAL 0.4 mg/dL (0.2-1.0); TOTAL PROTEIN 7.2 g/dL (6.4-8.2); TROPONIN I < 0.015 ng/mL (0.000-0.045)
[2019-09-14] MEDS ORDERED: LIDOCAINE-MPF 1%, 5ML INFIL ONE (19:30)
[2019-09-14] MEDS ORDERED: LIDOCAINE 1%-EPI 1:100K, 20ML ONE (19:52)
[2019-09-14] MEDS ORDERED: LIDOCAINE 1%-EPI 1:100K, 20ML INFIL ONE (20:00)
[2019-09-14 20:07] VITALS: BP 116/30
--- NOTE | 2019-09-14 20:19 | NUR ---
ER PA IN TO SUTURE LAC
== END 2019-09-14 21:07 | disposition home or self-care (01) ==
LOC: ED 20:39
DX: S81.812A Laceration without foreign body, left lower leg, initial encounter (principal); E11.9 Type 2 diabetes mellitus without complications; I10 Essential (primary) hypertension; E78.00 Pure hypercholesterolemia, unspecified; I48.91 Unspecified atrial fibrillation; I11.9 Hypertensive heart disease without heart failure; Z95.0 Presence of cardiac pacemaker; Z85.9 Personal history of malignant neoplasm, unspecified; W20.8XXA Other cause of strike by thrown, projected or falling object, initial encounter; Y93.89 Activity, other specified; Y92.89 Other specified places as the place of occurrence of the external cause; Y99.8 Other external cause status
CPT/HCPCS: 12032; 36415; 71045; 80053; 84484; 85025; 90471; 90715; 93005

== ENCOUNTER 2019-09-24 09:34 | Inpatient (IN) | payer MEDICARE, MEDICAID ==
[~2019-09-24] VITALS: Ht 162.6 cm; Wt 67.6 kg
--- NOTE | 2019-09-24 09:59 | NUR ---
PT HERE W/ SON-IN-LAW. PT GE[place]GIAN SPEAKER. SON-IN-LAW SPEAKS CITIZEN OF [place]. PER SON-IN-LAW, PT CAME TO ED FROM DOCTOR'S OFFICE; PT'S DOCTOR SPOKE W/ DR ORDOÑEZ (ERP). PT USUALLY ON HOME O2. PT AWAKE, ALERT, REPORT OF DYSPNEA, DARK STOOL. WILL CONFIRM INFORMATION W/ ERP
--- NOTE | 2019-09-24 10:05 | NUR ---
BEATA EDGE BS FOR EXAM. SON-IN-LAW REPORTS PT HAS HARD TIME BREATHING "FOR A LONG TIME". PT SEEN IN ED MULTIPLE TIMES FOR "SAME THING", BM'S BLACK X 2 WEEKS. SON-IN-LAW SEEMS CONFUSE ON REASON FOR PT'S VISIT. PRESENTS XR ORDER FROM DR MORE (PCP) FOR CT THORAX (DX THYROID CA, METSTATIC; ELEVATED ALK PHOS. PT PALE, WARM, DRY. OXYGEN APPLIED 3LNC. PULSE OX INCREASED FROM 82% TO 99%.
--- NOTE | 2019-09-24 10:25 | NUR ---
RECTAL EXAM PER BEATA EDGE W/ THIS RN ASSIST. HEMOCCULT NEGATIVE.
[2019-09-24 10:47] LABS: BASOPHILS # (AUTO) 0.04 x10^3/uL (0-0.1); BASOPHILS % (AUTO) 1 % (0-1); EOSINOPHILS # (AUTO) 0.15 x10^3/uL (0-0.4); EOSINOPHILS % (AUTO) 2 % (1-7); LYMPHOCYTES # (AUTO) 0.77 x10^3/uL (1-3.4); LYMPHOCYTES % (AUTO) 9 % (22-44); MD NO; MEAN CORPUSCULAR HEMOGLOBIN 29.1 pg (27.0-34.8); MEAN CORPUSCULAR HGB CONC 32.1 g/dL (32.4-35.8); MEAN CORPUSCULAR VOLUME 90.6 fL (80-100); MEAN PLATELET VOLUME 9.3 fL (7.4-10.4); MONOCYTES # (AUTO) 0.46 x10^3/uL (0.2-0.8); MONOCYTES % (AUTO) 5 % (2-9); NEUTROPHILS # (AUTO) 7.57 x10^3/uL (1.8-6.8); NEUTROPHILS % (AUTO) 84 % (42-75); PLATELET COUNT 197 x10^3/uL (130-400); RED BLOOD COUNT 2.91 x10^6/uL (3.82-5.3); RED CELL DISTRIBUTION WIDTH 16.8 % (9.6-15.2)
[2019-09-24 10:56] LABS: ALBUMIN 3.6 g/dL (3.4-5.0)
[2019-09-24 11:02] LABS: ALANINE AMINOTRANSFERASE 24 U/L (12-78); ALKALINE PHOSPHATASE 235 U/L (45-117); ANION GAP 4 mmol/L (5-15); BILIRUBIN,TOTAL 0.4 mg/dL (0.2-1.0); CHLORIDE 100 mmol/L (98-107); TOTAL PROTEIN 7.5 g/dL (6.4-8.2); TROPONIN I 0.021 ng/mL (0.000-0.045)
[2019-09-24 11:08] LABS: CALCIUM 6.3 mg/dL (8.5-10.1)
--- NOTE | 2019-09-24 11:35 | NUR ---
QUICK CATH URINE SPECIMEN OBTAINED; PT TOLERATED PROCEDURE WELL.
--- NOTE | 2019-09-24 11:44 | NUR ---
PT TO [facility] BR PER JUNIOR W/ O2. PT SOB AFTER WALKING INTO & OUT OF BR. O2 REAPPLIED. PT RETURNED TO ROOM PER JUNIOR. ROOM O2 AND MONITORING EQUIPMENT REAPPLIED.
--- NOTE | 2019-09-24 11:57 | NUR ---
CALLED DR SHANI MORE'S OFFICE ([phone]) TO GET CURRENT MEDICATION LIST; OFFICE CLOSED. WILL CALL [facility] FOR LIST.
[2019-09-24 12:02] LABS: MICROSCOPIC NOT IND
[2019-09-24 12:03] LABS: CULTURE INDICATED? NO
--- NOTE | 2019-09-24 12:04 | NUR ---
MED LIST OBTAINED FROM [facility]
[2019-09-24] MEDS ORDERED: ZOLP-413 PO (12:09)
[2019-09-24] MEDS ORDERED: OMEP40CA42 PO (12:09)
[2019-09-24] MEDS ORDERED: POTA20TA89 PO (12:09)
[2019-09-24] MEDS ORDERED: INSU100C5 SQ-INSULIN (12:10)
[2019-09-24] MEDS ORDERED: CALCIUM GLUCONATE 9.2 MEQ in SODIUM CHLORIDE 0.9% 100 ML IV ONE (12:30)
--- NOTE | 2019-09-24 13:45 | NUR ---
PER BEATA EDGE, PT NEEDS CT NOW; TRANSFUSION TO BE HELD UNTIL AFTER CT. IV ATTEMPTED X1 PER LEV CAPELLAN. U/S IV TO BE ATTEMPTED.
--- NOTE | 2019-09-24 14:13 | NUR ---
PIV INITIATED PER LEV CAPELLAN. 20G RT FA ULTRASOUND GUIDED; 20G LT FA. DR WRIGHT BS FOR EXAM
[2019-09-24] MEDS ORDERED: CALCIUM (14:16)
--- NOTE | 2019-09-24 14:16 | NUR ---
VO DR WRIGHT: HOLD BLOOD TRANSFUSION.
--- NOTE | 2019-09-24 14:17 | NUR ---
CALCIUM GLUCONATE INFUSION HUNG, INFUSING AT 120ML/HR VIA PUMP PER EMAR
--- NOTE | 2019-09-24 14:21 | NUR ---
TO CT PER JUNIOR.
[2019-09-24] MEDS ORDERED: hydrALAzine 20 MG/ML, 1ML IVPush PRN (14:30)
[2019-09-24] MEDS ORDERED: DEXTROSE 50%, 50ML SYRINGE IVPush PRN (14:30)
[2019-09-24] MEDS ORDERED: GLUCAGON 1 MG IM PRN (14:30)
[2019-09-24] MEDS ORDERED: DEXTROSE 4 GM TAB.CHEW PO PRN (14:30)
--- NOTE | 2019-09-24 14:51 | NUR ---
PT REPORT TO DAKOTA BOSWELL FOR ROOM 526
[2019-09-24 14:52] LABS: TROPONIN I < 0.015 ng/mL (0.000-0.045)
[2019-09-24 15:16] VITALS: BP 123/72
[2019-09-24] MEDS ORDERED: ONDANSETRON ODT 4 MG PO PRN (16:00)
[2019-09-24] MEDS ORDERED: BACLOFEN 10 MG TABLET PO PRN (16:00)
[2019-09-24] MEDS ORDERED: morphine SULFATE 10 MG/ML, 1ML IVPush PRN (16:00)
[2019-09-24] MEDS ORDERED: ONDANSETRON 2MG/ML, 2ML IVPush PRN (16:00)
[2019-09-24] MEDS: INSULIN LISPRO 100 UNITS/ML, PEN SQ-INSULIN SCH ×2 (16:00→22:09)
[2019-09-24] MEDS: FUROSEMIDE 40 MG/4 ML IV SCH ×2 (16:41→22:00)
[2019-09-24] MEDS: ISOSORBIDE DINITRATE 10 MG TABLET PO SCH ×2 (16:41→22:01)
[2019-09-24] MEDS: CALCIUM CARBONATE 500 MG TAB.CHEW PO SCH ×2 (16:49→22:01)
[2019-09-24 19:44] VITALS: BP 143/61
[2019-09-24 20:24] LABS: TROPONIN I 0.015 ng/mL (0.000-0.045)
[2019-09-24] MEDS: SODIUM CHLORIDE FLUSH 10ML SYR IVF SCH (21:00)
[2019-09-24] MEDS: CARVEDILOL 25 MG TABLET PO SCH (22:01)
[2019-09-24] MEDS: ATORVASTATIN 40 MG TABLET PO SCH (22:01)
[2019-09-24] MEDS: MIRTAZAPINE 30 MG TABLET PO SCH (22:02)
[2019-09-24] MEDS: PANTOPROZOLE 40MG TABLET PO SCH (22:02)
[2019-09-25 01:20] VITALS: BP 132/79
[2019-09-25 02:24] LABS: BASOPHILS # (AUTO) 0.02 x10^3/uL (0-0.1); BASOPHILS % (AUTO) 1 % (0-1); EOSINOPHILS # (AUTO) 0.09 x10^3/uL (0-0.4); EOSINOPHILS % (AUTO) 2 % (1-7); LYMPHOCYTES # (AUTO) 0.83 x10^3/uL (1-3.4); LYMPHOCYTES % (AUTO) 17 % (22-44); MD NO; MEAN CORPUSCULAR HEMOGLOBIN 29.2 pg (27.0-34.8); MEAN CORPUSCULAR HGB CONC 32.4 g/dL (32.4-35.8); MEAN CORPUSCULAR VOLUME 90.3 fL (80-100); MEAN PLATELET VOLUME 9.2 fL (7.4-10.4); MONOCYTES # (AUTO) 0.46 x10^3/uL (0.2-0.8); MONOCYTES % (AUTO) 9 % (2-9); NEUTROPHILS # (AUTO) 3.57 x10^3/uL (1.8-6.8); NEUTROPHILS % (AUTO) 72 % (42-75); PLATELET COUNT 153 x10^3/uL (130-400); RED CELL DISTRIBUTION WIDTH 16.7 % (9.6-15.2)
[2019-09-25 02:31] LABS: ANION GAP 2 mmol/L (5-15); CALCIUM 6.9 mg/dL (8.5-10.1); CHLORIDE 102 mmol/L (98-107); CREATININE 1.22 mg/dL (0.55-1.02)
[2019-09-25 02:35] LABS: TROPONIN I 0.016 ng/mL (0.000-0.045)
[2019-09-25] MEDS: LEVOTHYROXINE 125 MCG TABLET PO SCH (06:16)
[2019-09-25] MEDS: PANTOPROZOLE 40MG TABLET PO SCH ×2 (06:16→17:00)
[2019-09-25] MEDS: OXYcodone IR 5MG TABLET PO PRN ×3 (06:18→20:14)
[2019-09-25] MEDS: INSULIN LISPRO 100 UNITS/ML, PEN SQ-INSULIN SCH ×4 (07:10→20:17)
[2019-09-25 07:25] VITALS: BP 137/52
[2019-09-25] MEDS: FUROSEMIDE 40 MG/4 ML IV SCH ×2 (09:03→17:00)
[2019-09-25] MEDS: CALCIUM CARBONATE 500 MG TAB.CHEW PO SCH ×2 (09:03→17:00)
[2019-09-25] MEDS: ASPIRIN 81 MG TABLET EC PO SCH (09:04)
[2019-09-25] MEDS: CARVEDILOL 25 MG TABLET PO SCH ×2 (09:04→20:13)
[2019-09-25] MEDS: ISOSORBIDE DINITRATE 10 MG TABLET PO SCH ×3 (09:04→20:13)
[2019-09-25] MEDS: SODIUM CHLORIDE FLUSH 10ML SYR IVF SCH ×2 (09:07→21:26)
[2019-09-25 13:25] VITALS: BP 137/69
[2019-09-25 19:15] VITALS: BP 136/62
[2019-09-25 20:12] VITALS: BP 114/69
[2019-09-25] MEDS: ATORVASTATIN 40 MG TABLET PO SCH (20:13)
[2019-09-25] MEDS: MIRTAZAPINE 30 MG TABLET PO SCH (21:26)
[2019-09-26 02:05] VITALS: BP 129/71
[2019-09-26] MEDS: OXYcodone IR 5MG TABLET PO PRN (02:11)
[2019-09-26 02:47] LABS: BASOPHILS # (AUTO) 0.01 x10^3/uL (0-0.1); BASOPHILS % (AUTO) 0 % (0-1); EOSINOPHILS # (AUTO) 0.06 x10^3/uL (0-0.4); EOSINOPHILS % (AUTO) 1 % (1-7); LYMPHOCYTES # (AUTO) 0.68 x10^3/uL (1-3.4); LYMPHOCYTES % (AUTO) 12 % (22-44); MD NO; MEAN CORPUSCULAR HEMOGLOBIN 28.9 pg (27.0-34.8); MEAN CORPUSCULAR HGB CONC 31.5 g/dL (32.4-35.8); MEAN CORPUSCULAR VOLUME 91.5 fL (80-100); MEAN PLATELET VOLUME 9.6 fL (7.4-10.4); MONOCYTES # (AUTO) 0.37 x10^3/uL (0.2-0.8); MONOCYTES % (AUTO) 7 % (2-9); NEUTROPHILS # (AUTO) 4.43 x10^3/uL (1.8-6.8); NEUTROPHILS % (AUTO) 80 % (42-75); PLATELET COUNT 156 x10^3/uL (130-400); RED BLOOD COUNT 2.65 x10^6/uL (3.82-5.3); RED CELL DISTRIBUTION WIDTH 16.6 % (9.6-15.2)
[2019-09-26 02:58] LABS: CHLORIDE 99 mmol/L (98-107); CREATININE 1.39 mg/dL (0.55-1.02)
[2019-09-26 03:06] LABS: ANION GAP 3 mmol/L (5-15)
[2019-09-26] MEDS: LEVOTHYROXINE 125 MCG TABLET PO SCH (06:24)
[2019-09-26] MEDS: CALCIUM CARBONATE 500 MG TAB.CHEW PO SCH ×3 (06:24→16:35)
[2019-09-26] MEDS: INSULIN LISPRO 100 UNITS/ML, PEN SQ-INSULIN SCH ×4 (07:00→21:38)
[2019-09-26 07:35] VITALS: BP 138/76
[2019-09-26] MEDS: ISOSORBIDE DINITRATE 10 MG TABLET PO SCH ×3 (08:36→21:33)
[2019-09-26] MEDS: ASPIRIN 81 MG TABLET EC PO SCH (08:36)
[2019-09-26] MEDS: CARVEDILOL 25 MG TABLET PO SCH ×2 (08:36→21:34)
[2019-09-26] MEDS: PANTOPROZOLE 40MG TABLET PO SCH ×2 (08:40→17:10)
[2019-09-26] MEDS: FUROSEMIDE 40 MG/4 ML IV SCH ×2 (08:41→16:35)
[2019-09-26] MEDS: SODIUM CHLORIDE FLUSH 10ML SYR IVF SCH ×2 (08:41→21:34)
[2019-09-26 14:19] VITALS: BP 116/56
[2019-09-26] MEDS: ACETAMINOPHEN 325 MG TABLET PO PRN (14:50)
[2019-09-26] MEDS ORDERED: CHOLECALCIFEROL 400 UNITS/ML ORAL SOL PO SCH (16:30)
[2019-09-26] MEDS: CHOLECALCIFEROL 400 UNITS TABLET PO SCH (16:35)
[2019-09-26] MEDS: MULTIVITS,STRESS FORMULA 1 TABLET PO SCH (17:27)
[2019-09-26] MEDS: ASCORBIC ACID 500 MG TABLET PO SCH (17:27)
[2019-09-26 21:16] VITALS: BP 123/45
[2019-09-26] MEDS: ATORVASTATIN 40 MG TABLET PO SCH (21:33)
[2019-09-26] MEDS: MIRTAZAPINE 30 MG TABLET PO SCH (21:34)
[2019-09-27] MEDS: CALCIUM CARBONATE 500 MG TAB.CHEW PO SCH ×3 (00:56→16:52)
[2019-09-27 03:00] VITALS: BP 111/49
[2019-09-27] MEDS: PANTOPROZOLE 40MG TABLET PO SCH ×2 (05:51→16:54)
[2019-09-27] MEDS: LEVOTHYROXINE 125 MCG TABLET PO SCH (05:51)
[2019-09-27 05:56] LABS: BASOPHILS # (AUTO) 0.01 x10^3/uL (0-0.1); BASOPHILS % (AUTO) 0 % (0-1); EOSINOPHILS # (AUTO) 0.11 x10^3/uL (0-0.4); EOSINOPHILS % (AUTO) 2 % (1-7); LYMPHOCYTES % (AUTO) 13 % (22-44); MD NO; MEAN CORPUSCULAR HEMOGLOBIN 29.1 pg (27.0-34.8); MEAN CORPUSCULAR HGB CONC 31.9 g/dL (32.4-35.8); MEAN CORPUSCULAR VOLUME 91.1 fL (80-100); MEAN PLATELET VOLUME 9.7 fL (7.4-10.4); MONOCYTES % (AUTO) 7 % (2-9); NEUTROPHILS # (AUTO) 4.15 x10^3/uL (1.8-6.8); NEUTROPHILS % (AUTO) 77 % (42-75); PLATELET COUNT 153 x10^3/uL (130-400); RED BLOOD COUNT 2.62 x10^6/uL (3.82-5.3); RED CELL DISTRIBUTION WIDTH 16.1 % (9.6-15.2)
[2019-09-27 06:07] LABS: CHLORIDE 95 mmol/L (98-107)
[2019-09-27 06:15] LABS: ALBUMIN 3.1 g/dL (3.4-5.0); ANION GAP 1 mmol/L (5-15); CALCIUM 6.9 mg/dL (8.5-10.1); CREATININE 1.67 mg/dL (0.55-1.02)
[2019-09-27] MEDS: INSULIN LISPRO 100 UNITS/ML, PEN SQ-INSULIN SCH ×4 (07:00→20:32)
[2019-09-27 08:46] VITALS: BP 119/64
[2019-09-27] MEDS: CARVEDILOL 25 MG TABLET PO SCH ×2 (08:58→20:31)
[2019-09-27] MEDS: ASCORBIC ACID 500 MG TABLET PO SCH ×2 (08:58→16:52)
[2019-09-27] MEDS: ISOSORBIDE DINITRATE 10 MG TABLET PO SCH ×3 (08:58→20:31)
[2019-09-27] MEDS: MULTIVITS,STRESS FORMULA 1 TABLET PO SCH (08:58)
[2019-09-27] MEDS: FUROSEMIDE 40 MG/4 ML IV SCH ×2 (08:58→16:52)
[2019-09-27] MEDS: SODIUM CHLORIDE FLUSH 10ML SYR IVF SCH ×2 (08:58→20:31)
[2019-09-27] MEDS: ASPIRIN 81 MG TABLET EC PO SCH (08:58)
[2019-09-27] MEDS: ACETAMINOPHEN 325 MG TABLET PO PRN (08:59)
[2019-09-27 15:00] VITALS: BP 140/59
[2019-09-27] MEDS: CHOLECALCIFEROL 400 UNITS TABLET PO SCH (16:54)
[2019-09-27] MEDS: ATORVASTATIN 40 MG TABLET PO SCH (20:31)
[2019-09-27] MEDS: MIRTAZAPINE 30 MG TABLET PO SCH (20:31)
[2019-09-27 20:45] VITALS: BP 136/61
[2019-09-28] MEDS: CALCIUM CARBONATE 500 MG TAB.CHEW PO SCH ×3 (00:50→16:49)
[2019-09-28 03:29] VITALS: BP 141/55
[2019-09-28 05:27] LABS: BASOPHILS # (AUTO) 0.02 x10^3/uL (0-0.1); BASOPHILS % (AUTO) 1 % (0-1); EOSINOPHILS # (AUTO) 0.09 x10^3/uL (0-0.4); EOSINOPHILS % (AUTO) 2 % (1-7); LYMPHOCYTES # (AUTO) 0.64 x10^3/uL (1-3.4); LYMPHOCYTES % (AUTO) 15 % (22-44); MD NO; MEAN CORPUSCULAR HEMOGLOBIN 29.1 pg (27.0-34.8); MEAN CORPUSCULAR HGB CONC 32.1 g/dL (32.4-35.8); MEAN CORPUSCULAR VOLUME 90.8 fL (80-100); MEAN PLATELET VOLUME 9.6 fL (7.4-10.4); MONOCYTES # (AUTO) 0.31 x10^3/uL (0.2-0.8); MONOCYTES % (AUTO) 7 % (2-9); NEUTROPHILS # (AUTO) 3.21 x10^3/uL (1.8-6.8); NEUTROPHILS % (AUTO) 75 % (42-75); PLATELET COUNT 159 x10^3/uL (130-400); RED BLOOD COUNT 2.69 x10^6/uL (3.82-5.3); RED CELL DISTRIBUTION WIDTH 16.2 % (9.6-15.2)
[2019-09-28 05:34] LABS: ALBUMIN 3.1 g/dL (3.4-5.0); ANION GAP 2 mmol/L (5-15); CALCIUM 6.8 mg/dL (8.5-10.1); CHLORIDE 98 mmol/L (98-107); CREATININE 1.38 mg/dL (0.55-1.02)
[2019-09-28] MEDS: LEVOTHYROXINE 125 MCG TABLET PO SCH (05:34)
[2019-09-28] MEDS: PANTOPROZOLE 40MG TABLET PO SCH ×2 (05:36→16:49)
[2019-09-28] MEDS ORDERED: CALCIUM GLUCONATE 4.6 MEQ in SODIUM CHLORIDE 0.9% 50 ML IV ONE (06:30)
[2019-09-28] MEDS: MULTIVITS,STRESS FORMULA 1 TABLET PO SCH (08:10)
[2019-09-28] MEDS: ASPIRIN 81 MG TABLET EC PO SCH (08:12)
[2019-09-28] MEDS: ASCORBIC ACID 500 MG TABLET PO SCH ×2 (08:12→16:49)
[2019-09-28] MEDS: CARVEDILOL 25 MG TABLET PO SCH (08:12)
[2019-09-28] MEDS: ISOSORBIDE DINITRATE 10 MG TABLET PO SCH ×2 (08:12→16:48)
[2019-09-28] MEDS: FUROSEMIDE 40 MG/4 ML IV SCH ×2 (08:13→16:50)
[2019-09-28] MEDS: SODIUM CHLORIDE FLUSH 10ML SYR IVF SCH (08:13)
[2019-09-28] MEDS: INSULIN LISPRO 100 UNITS/ML, PEN SQ-INSULIN SCH ×3 (08:15→16:50)
[2019-09-28] MEDS ORDERED: LISI2.5T PO ×2 (14:42)
[2019-09-28] MEDS ORDERED: SPIR25TA PO (14:42)
[2019-09-28] MEDS: OXYcodone IR 5MG TABLET PO PRN (16:49)
[2019-09-28] MEDS: CHOLECALCIFEROL 400 UNITS TABLET PO SCH (16:49)
== END 2019-09-28 17:58 | disposition home health service (06) | DRG 189 ==
LOC: ED 11:49 → EDIP 13:55 → 5SO 15:09
PROVIDERS: ADMIT Internal Medicine; ATTEND Family Medicine
PROC: 0T9B70Z Drainage of Bladder with Drainage Device, Via Natural or Artificial Opening (ICD-10-PCS; principal; 2019-09-24)
DX: J96.21 Acute and chronic respiratory failure with hypoxia (principal); N17.0 Acute kidney failure with tubular necrosis; D68.69 Other thrombophilia; I13.0 Hypertensive heart and chronic kidney disease with heart failure and stage 1 through stage 4 chronic kidney disease, or unspecified chronic kidney disease; I48.21 Permanent atrial fibrillation; I50.42 Chronic combined systolic (congestive) and diastolic (congestive) heart failure; D64.9 Anemia, unspecified; E11.22 Type 2 diabetes mellitus with diabetic chronic kidney disease; E21.3 Hyperparathyroidism, unspecified; E78.00 Pure hypercholesterolemia, unspecified; E78.5 Hyperlipidemia, unspecified; E89.0 Postprocedural hypothyroidism; I07.1 Rheumatic tricuspid insufficiency; C73 Malignant neoplasm of thyroid gland; I25.10 Atherosclerotic heart disease of native coronary artery without angina pectoris; I25.5 Ischemic cardiomyopathy; I35.0 Nonrheumatic aortic (valve) stenosis; I35.1 Nonrheumatic aortic (valve) insufficiency; N18.9 Chronic kidney disease, unspecified; Z82.49 Family history of ischemic heart disease and other diseases of the circulatory system; Z82.5 Family history of asthma and other chronic lower respiratory diseases; Z85.850 Personal history of malignant neoplasm of thyroid; Z91.14 Patient's other noncompliance with medication regimen; Z95.1 Presence of aortocoronary bypass graft; Z95.3 Presence of xenogenic heart valve
CPT/HCPCS: 36415; 71045; 71250; 74176; 80048; 80053; 80069; 81003; 82330; 82962; 83735; 83880; 84484; 85014; 85018; 85025; 86850; 86900; 86923; 93005; 99291; G0378; J0610; J1940; J2405; J1815; J2270

== ENCOUNTER 2019-10-05 14:47 | Inpatient (IN) | payer MEDICARE, MEDICAID ==
[~2019-10-05] VITALS: Ht 162.6 cm; Wt 61.8 kg
[~2019-10-05 14:47] MED LIST changes: +CALCIUM; +INSU100C5 SQ-INSULIN; +LISI2.5T PO; +OMEP40CA42 PO; +POTA20TA89 PO; +SPIR25TA PO; +ZOLP-413 PO
--- NOTE | 2019-10-05 15:10 | NUR ---
BIB [facility]. PT C/O SOB, LETHARGIC SINCE LAST NIGHT. PT WAS WAS DC FROM [facility] A WEEK AGO AFTER HAVING AN INFECTION. PT ON BASELINE 2L OXYGEN. GRANDDAUGHTER AT BEDSIDE, STATES PT "HASN'T FELT HERSELF SINCE LAST NIGHT". CONNECTED TO MONITORING. CALL LIGHT IN REACH. LAB AT BEDSIDE.
[2019-10-05 15:20] LABS: BASOPHILS % (AUTO) 0 % (0-1); EOSINOPHILS % (AUTO) 0 % (1-7); LYMPHOCYTES # (AUTO) 0.41 x10^3/uL (1-3.4); LYMPHOCYTES % (AUTO) 4 % (22-44); MD NO; MEAN CORPUSCULAR HEMOGLOBIN 27.9 pg (27.0-34.8); MEAN CORPUSCULAR HGB CONC 31.4 g/dL (32.4-35.8); MEAN CORPUSCULAR VOLUME 88.7 fL (80-100); MEAN PLATELET VOLUME 8.9 fL (7.4-10.4); MONOCYTES # (AUTO) 0.38 x10^3/uL (0.2-0.8); MONOCYTES % (AUTO) 4 % (2-9); NEUTROPHILS # (AUTO) 9.48 x10^3/uL (1.8-6.8); NEUTROPHILS % (AUTO) 92 % (42-75); PLATELET COUNT 267 x10^3/uL (130-400); RED BLOOD COUNT 3.27 x10^6/uL (3.82-5.3); RED CELL DISTRIBUTION WIDTH 16.9 % (9.6-15.2)
[2019-10-05 15:30] LABS: ALANINE AMINOTRANSFERASE 17 U/L (12-78); ALBUMIN 3.8 g/dL (3.4-5.0); ANION GAP 4 mmol/L (5-15); CALCIUM 6.6 mg/dL (8.5-10.1); CHLORIDE 102 mmol/L (98-107); CREATININE 0.97 mg/dL (0.55-1.02)
[2019-10-05] MEDS ORDERED: SODIUM CHLORIDE FLUSH 10ML SYR IVF ONE (15:30)
[2019-10-05 15:32] LABS: ALKALINE PHOSPHATASE 198 U/L (45-117); BILIRUBIN,TOTAL 0.6 mg/dL (0.2-1.0); TROPONIN I < 0.015 ng/mL (0.000-0.045)
--- NOTE | 2019-10-05 15:57 | NUR ---
RECEIVED CRITICAL LAB RESULTS FROM LAB. BLOOD GLUCOSE 32. NOTIFIED. PT GIVEN ORANGE JUICE, CRACKERS AND PEANUT BUTTER, FOOD TRAY ORDERED. POC GLUCOSE 54 AFTER JUICE AND CRACKERS. PT IS FEELING BETTER AFTER SNACK. FAMILY STATES PT IS MORE ALERT. PT TRANSFERRED TO BEDSIDE COMMODE AND BACK TO BED WITHOUT INCIDENCE.
--- NOTE | 2019-10-05 16:00 | NUR ---
ALL RESULTS ARE BACK AT THIS TIME. CHART UP FOR RECHECK.
[2019-10-05 16:24] LABS: ACETONE, SERUM Negative (Negative)
[2019-10-05] MEDS ORDERED: SODIUM CHLORIDE FLUSH 10ML SYR IVF PRN (16:30)
[2019-10-05 16:54] LABS: HEMOGLOBIN A1C 5.7 % (4.2-6.3)
--- NOTE | 2019-10-05 16:58 | NUR ---
Meal tray delivered & being eaten. Dr. Bryant@ .
--- NOTE | 2019-10-05 17:07 | NUR ---
Report to tele. Alfonzo
[2019-10-05] MEDS ORDERED: FUROSEMIDE 40 MG/4 ML IV ONE (17:30)
[2019-10-05 18:05] VITALS: BP 179/81
[2019-10-05 19:02] VITALS: BP 181/82
[2019-10-05] MEDS: INSULIN LISPRO 100 UNITS/ML, PEN SQ-INSULIN SCH (19:54)
[2019-10-05] MEDS: ISOSORBIDE DINITRATE 10 MG TABLET PO SCH (20:01)
[2019-10-05] MEDS: ATORVASTATIN 40 MG TABLET PO SCH (20:01)
[2019-10-05] MEDS: MIRTAZAPINE 30 MG TABLET PO SCH (20:01)
[2019-10-05] MEDS: CARVEDILOL 25 MG TABLET PO SCH (20:02)
[2019-10-05] MEDS: ENOXAPARIN 40 MG/0.4 ML SQ SCH (20:02)
[2019-10-05] MEDS: ZOLPIDEM 5MG TABLET PO SCH (20:02)
[2019-10-06 02:30] VITALS: BP_SYST 104; BP_SYST 124; BP_DIAS 67
[2019-10-06 02:50] VITALS: BP 104/67
[2019-10-06] MEDS ORDERED: DEXTROSE 50%, 50ML SYRINGE IVPush ONE (03:30)
[2019-10-06 04:56] LABS: BASOPHILS % (AUTO) 0 % (0-1); EOSINOPHILS # (AUTO) 0.04 x10^3/uL (0-0.4); EOSINOPHILS % (AUTO) 1 % (1-7); LYMPHOCYTES # (AUTO) 0.34 x10^3/uL (1-3.4); LYMPHOCYTES % (AUTO) 5 % (22-44); MD NO; MEAN CORPUSCULAR HEMOGLOBIN 28.8 pg (27.0-34.8); MEAN CORPUSCULAR HGB CONC 32.4 g/dL (32.4-35.8); MEAN CORPUSCULAR VOLUME 88.8 fL (80-100); MONOCYTES # (AUTO) 0.46 x10^3/uL (0.2-0.8); MONOCYTES % (AUTO) 6 % (2-9); NEUTROPHILS # (AUTO) 6.61 x10^3/uL (1.8-6.8); NEUTROPHILS % (AUTO) 89 % (42-75); PLATELET COUNT 212 x10^3/uL (130-400); RED BLOOD COUNT 2.92 x10^6/uL (3.82-5.3)
[2019-10-06 05:07] LABS: CHLORIDE 101 mmol/L (98-107)
[2019-10-06 05:14] LABS: ANION GAP 4 mmol/L (5-15); CREATININE 1.05 mg/dL (0.55-1.02)
[2019-10-06] MEDS: LEVOTHYROXINE 125 MCG TABLET PO SCH (06:04)
[2019-10-06 06:37] VITALS: BP 198/76
[2019-10-06] MEDS: INSULIN LISPRO 100 UNITS/ML, PEN SQ-INSULIN SCH ×4 (07:00→20:28)
[2019-10-06] MEDS: ASPIRIN 81 MG TABLET EC PO SCH (08:28)
[2019-10-06] MEDS: CARVEDILOL 25 MG TABLET PO SCH ×2 (08:29→20:34)
[2019-10-06] MEDS: AMLODIPINE 2.5 MG TABLET PO SCH (08:30)
[2019-10-06] MEDS: ISOSORBIDE DINITRATE 10 MG TABLET PO SCH ×3 (08:30→20:33)
[2019-10-06] MEDS: SPIRONOLACTONE 25 MG TABLET PO SCH (08:30)
[2019-10-06] MEDS: OMEPRAZOLE 20 MG CAPSULE.DR PO SCH (08:30)
[2019-10-06] MEDS: POTASSIUM CHLORIDE 20 MEQ TAB.ER.PRT PO SCH (08:30)
[2019-10-06] MEDS: LOSARTAN 50MG TABLET PO SCH (08:30)
[2019-10-06] MEDS: FUROSEMIDE 40 MG/4 ML IV SCH (08:31)
[2019-10-06 12:59] VITALS: BP 122/50
[2019-10-06 19:06] VITALS: BP 114/62
[2019-10-06] MEDS: ATORVASTATIN 40 MG TABLET PO SCH (20:33)
[2019-10-06] MEDS: MIRTAZAPINE 30 MG TABLET PO SCH (20:33)
[2019-10-06] MEDS: ZOLPIDEM 5MG TABLET PO SCH (20:34)
[2019-10-06] MEDS: ENOXAPARIN 40 MG/0.4 ML SQ SCH (20:38)
[2019-10-07 00:19] VITALS: BP 114/74
[2019-10-07] MEDS: LEVOTHYROXINE 125 MCG TABLET PO SCH (05:30)
[2019-10-07 06:14] LABS: ANION GAP 3 mmol/L (5-15); CHLORIDE 102 mmol/L (98-107); CREATININE 1.43 mg/dL (0.55-1.02)
[2019-10-07 06:20] LABS: CALCIUM 5.4 mg/dL (8.5-10.1)
[2019-10-07] MEDS: INSULIN LISPRO 100 UNITS/ML, PEN SQ-INSULIN SCH ×4 (07:00→22:00)
[2019-10-07] MEDS ORDERED: ERGOCALCIFEROL 50,000 UNIT CAPSULE PO SCH (07:30)
[2019-10-07] MEDS ORDERED: CALCIUM CHLORIDE 13.6 MEQ in SODIUM CHLORIDE 0.9% 100 ML IV ONE (07:30)
[2019-10-07 07:35] VITALS: BP 104/59
[2019-10-07] MEDS: ISOSORBIDE DINITRATE 10 MG TABLET PO SCH ×3 (09:06→22:01)
[2019-10-07] MEDS: SPIRONOLACTONE 25 MG TABLET PO SCH (09:06)
[2019-10-07] MEDS: LOSARTAN 50MG TABLET PO SCH (09:06)
[2019-10-07] MEDS: OMEPRAZOLE 20 MG CAPSULE.DR PO SCH (09:06)
[2019-10-07] MEDS: AMLODIPINE 2.5 MG TABLET PO SCH (09:06)
[2019-10-07] MEDS: POTASSIUM CHLORIDE 20 MEQ TAB.ER.PRT PO SCH (09:06)
[2019-10-07] MEDS: CARVEDILOL 25 MG TABLET PO SCH ×2 (09:06→22:01)
[2019-10-07] MEDS: ASPIRIN 81 MG TABLET EC PO SCH (09:06)
[2019-10-07] MEDS: FUROSEMIDE 40 MG/4 ML IV SCH ×3 (09:07→22:12)
[2019-10-07] MEDS: CALCIUM CARBONATE 500 MG TAB.CHEW PO SCH ×4 (11:00→22:00)
[2019-10-07 12:59] VITALS: BP 138/70
[2019-10-07 19:16] VITALS: BP 136/68
[2019-10-07 21:58] VITALS: BP 136/60
[2019-10-07] MEDS: ATORVASTATIN 40 MG TABLET PO SCH (22:00)
[2019-10-07] MEDS: ZOLPIDEM 5MG TABLET PO SCH (22:00)
[2019-10-07] MEDS: MIRTAZAPINE 30 MG TABLET PO SCH (22:01)
[2019-10-07] MEDS: ENOXAPARIN 40 MG/0.4 ML SQ SCH (22:17)
[2019-10-08 01:09] VITALS: BP 124/56
[2019-10-08 05:27] LABS: BASOPHILS # (AUTO) 0.03 x10^3/uL (0-0.1); BASOPHILS % (AUTO) 1 % (0-1); EOSINOPHILS # (AUTO) 0.13 x10^3/uL (0-0.4); EOSINOPHILS % (AUTO) 3 % (1-7); LYMPHOCYTES # (AUTO) 0.82 x10^3/uL (1-3.4); LYMPHOCYTES % (AUTO) 18 % (22-44); MD NO; MEAN CORPUSCULAR HEMOGLOBIN 28.1 pg (27.0-34.8); MEAN CORPUSCULAR HGB CONC 31.8 g/dL (32.4-35.8); MEAN CORPUSCULAR VOLUME 88.3 fL (80-100); MEAN PLATELET VOLUME 8.9 fL (7.4-10.4); MONOCYTES # (AUTO) 0.49 x10^3/uL (0.2-0.8); MONOCYTES % (AUTO) 11 % (2-9); NEUTROPHILS # (AUTO) 3.12 x10^3/uL (1.8-6.8); NEUTROPHILS % (AUTO) 68 % (42-75); PLATELET COUNT 203 x10^3/uL (130-400); RED BLOOD COUNT 2.69 x10^6/uL (3.82-5.3); RED CELL DISTRIBUTION WIDTH 16.6 % (9.6-15.2)
[2019-10-08 05:37] LABS: ALANINE AMINOTRANSFERASE 18 U/L (12-78); ALBUMIN 3.2 g/dL (3.4-5.0); ANION GAP 3 mmol/L (5-15); CALCIUM 6.3 mg/dL (8.5-10.1); CHLORIDE 102 mmol/L (98-107)
[2019-10-08 05:40] LABS: ALKALINE PHOSPHATASE 152 U/L (45-117); BILIRUBIN,TOTAL 0.4 mg/dL (0.2-1.0); CREATININE 1.31 mg/dL (0.55-1.02); TOTAL PROTEIN 6.5 g/dL (6.4-8.2)
[2019-10-08] MEDS: CALCIUM CARBONATE 500 MG TAB.CHEW PO SCH ×4 (05:59→21:15)
[2019-10-08] MEDS: LEVOTHYROXINE 125 MCG TABLET PO SCH (05:59)
[2019-10-08] MEDS: INSULIN LISPRO 100 UNITS/ML, PEN SQ-INSULIN SCH ×4 (07:00→20:42)
[2019-10-08 07:46] VITALS: BP 150/66
[2019-10-08] MEDS: ASPIRIN 81 MG TABLET EC PO SCH (08:22)
[2019-10-08] MEDS: OMEPRAZOLE 20 MG CAPSULE.DR PO SCH (08:22)
[2019-10-08] MEDS: FUROSEMIDE 40 MG/4 ML IV SCH ×2 (08:22→21:16)
[2019-10-08] MEDS: LOSARTAN 50MG TABLET PO SCH (08:22)
[2019-10-08] MEDS: CARVEDILOL 25 MG TABLET PO SCH ×2 (08:23→21:16)
[2019-10-08] MEDS: SPIRONOLACTONE 25 MG TABLET PO SCH (08:23)
[2019-10-08] MEDS: AMLODIPINE 2.5 MG TABLET PO SCH (08:23)
[2019-10-08] MEDS: ISOSORBIDE DINITRATE 10 MG TABLET PO SCH ×3 (08:23→21:17)
[2019-10-08] MEDS: POTASSIUM CHLORIDE 20 MEQ TAB.ER.PRT PO SCH (08:23)
[2019-10-08 15:20] VITALS: BP 148/51
[2019-10-08] MEDS: ACETAMINOPHEN 325 MG TABLET PO PRN ×2 (16:24→21:15)
[2019-10-08 19:23] VITALS: BP 128/64
[2019-10-08] MEDS: ATORVASTATIN 40 MG TABLET PO SCH (21:15)
[2019-10-08] MEDS: MIRTAZAPINE 30 MG TABLET PO SCH (21:16)
[2019-10-08] MEDS: ZOLPIDEM 5MG TABLET PO SCH (21:16)
[2019-10-08] MEDS: ENOXAPARIN 40 MG/0.4 ML SQ SCH (21:17)
[2019-10-09 01:45] VITALS: BP 134/52
[2019-10-09] MEDS: LEVOTHYROXINE 125 MCG TABLET PO SCH (05:51)
[2019-10-09] MEDS: CALCIUM CARBONATE 500 MG TAB.CHEW PO SCH ×4 (05:51→20:55)
[2019-10-09] MEDS ORDERED: CALCIUM CHLORIDE 13.6 MEQ in SODIUM CHLORIDE 0.9% 100 ML IV ONE (06:30)
[2019-10-09 07:09] LABS: BASOPHILS # (AUTO) 0.01 x10^3/uL (0-0.1); BASOPHILS % (AUTO) 0 % (0-1); EOSINOPHILS % (AUTO) 2 % (1-7); LYMPHOCYTES # (AUTO) 0.92 x10^3/uL (1-3.4); LYMPHOCYTES % (AUTO) 20 % (22-44); MD NO; MEAN CORPUSCULAR VOLUME 87.4 fL (80-100); MEAN PLATELET VOLUME 8.5 fL (7.4-10.4); MONOCYTES # (AUTO) 0.44 x10^3/uL (0.2-0.8); MONOCYTES % (AUTO) 10 % (2-9); NEUTROPHILS % (AUTO) 68 % (42-75); PLATELET COUNT 228 x10^3/uL (130-400); RED BLOOD COUNT 2.83 x10^6/uL (3.82-5.3); RED CELL DISTRIBUTION WIDTH 17.3 % (9.6-15.2)
[2019-10-09 07:19] LABS: ALBUMIN 3.2 g/dL (3.4-5.0); ANION GAP 5 mmol/L (5-15); CALCIUM 6.6 mg/dL (8.5-10.1); CHLORIDE 101 mmol/L (98-107)
[2019-10-09 07:20] LABS: CREATININE 1.52 mg/dL (0.55-1.02)
[2019-10-09] MEDS: INSULIN LISPRO 100 UNITS/ML, PEN SQ-INSULIN SCH ×4 (07:25→20:32)
[2019-10-09 07:27] VITALS: BP 143/52
[2019-10-09] MEDS ORDERED: LACTATED RINGERS 1,000 ML IV SCH (08:00)
[2019-10-09] MEDS: FUROSEMIDE 40 MG/4 ML IV SCH (08:05)
[2019-10-09] MEDS: CARVEDILOL 25 MG TABLET PO SCH ×2 (08:05→20:55)
[2019-10-09] MEDS: LOSARTAN 50MG TABLET PO SCH (08:06)
[2019-10-09] MEDS: ISOSORBIDE DINITRATE 10 MG TABLET PO SCH ×3 (08:06→20:56)
[2019-10-09] MEDS: POTASSIUM CHLORIDE 20 MEQ TAB.ER.PRT PO SCH (08:06)
[2019-10-09] MEDS: OMEPRAZOLE 20 MG CAPSULE.DR PO SCH (08:06)
[2019-10-09] MEDS: ASPIRIN 81 MG TABLET EC PO SCH (08:06)
[2019-10-09] MEDS: SPIRONOLACTONE 25 MG TABLET PO SCH (08:06)
[2019-10-09] MEDS: AMLODIPINE 2.5 MG TABLET PO SCH (08:11)
[2019-10-09 13:37] VITALS: BP 144/51
[2019-10-09 19:45] VITALS: BP 137/56
[2019-10-09] MEDS: ATORVASTATIN 40 MG TABLET PO SCH (20:55)
[2019-10-09] MEDS: MIRTAZAPINE 30 MG TABLET PO SCH (20:55)
[2019-10-09] MEDS: ZOLPIDEM 5MG TABLET PO SCH (20:55)
[2019-10-09] MEDS: ENOXAPARIN 40 MG/0.4 ML SQ SCH (20:56)
[2019-10-10 00:59] VITALS: BP 137/68
[2019-10-10 05:43] LABS: BASOPHILS # (AUTO) 0.02 x10^3/uL (0-0.1); BASOPHILS % (AUTO) 0 % (0-1); EOSINOPHILS % (AUTO) 4 % (1-7); LYMPHOCYTES # (AUTO) 1.14 x10^3/uL (1-3.4); LYMPHOCYTES % (AUTO) 20 % (22-44); MD NO; MEAN CORPUSCULAR HEMOGLOBIN 28.6 pg (27.0-34.8); MEAN CORPUSCULAR HGB CONC 31.9 g/dL (32.4-35.8); MEAN CORPUSCULAR VOLUME 89.5 fL (80-100); MEAN PLATELET VOLUME 8.7 fL (7.4-10.4); MONOCYTES # (AUTO) 0.47 x10^3/uL (0.2-0.8); MONOCYTES % (AUTO) 8 % (2-9); NEUTROPHILS # (AUTO) 3.83 x10^3/uL (1.8-6.8); NEUTROPHILS % (AUTO) 68 % (42-75); PLATELET COUNT 260 x10^3/uL (130-400); RED BLOOD COUNT 2.99 x10^6/uL (3.82-5.3); RED CELL DISTRIBUTION WIDTH 16.7 % (9.6-15.2)
[2019-10-10] MEDS: LEVOTHYROXINE 125 MCG TABLET PO SCH (05:52)
[2019-10-10] MEDS: CALCIUM CARBONATE 500 MG TAB.CHEW PO SCH ×3 (05:52→16:17)
[2019-10-10 05:53] LABS: ALBUMIN 3.2 g/dL (3.4-5.0); ANION GAP 5 mmol/L (5-15); CALCIUM 7.6 mg/dL (8.5-10.1); CHLORIDE 105 mmol/L (98-107)
[2019-10-10 05:56] LABS: ALANINE AMINOTRANSFERASE 27 U/L (12-78); ALKALINE PHOSPHATASE 175 U/L (45-117); BILIRUBIN,TOTAL 0.5 mg/dL (0.2-1.0); CREATININE 1.05 mg/dL (0.55-1.02); TOTAL PROTEIN 7.1 g/dL (6.4-8.2)
[2019-10-10] MEDS: INSULIN LISPRO 100 UNITS/ML, PEN SQ-INSULIN SCH ×3 (07:48→16:26)
[2019-10-10 08:10] VITALS: BP 156/54
[2019-10-10] MEDS: FUROSEMIDE 40 MG/4 ML IV SCH ×2 (08:53→09:00)
[2019-10-10] MEDS: SPIRONOLACTONE 25 MG TABLET PO SCH (08:54)
[2019-10-10] MEDS: POTASSIUM CHLORIDE 20 MEQ TAB.ER.PRT PO SCH (08:54)
[2019-10-10] MEDS: ISOSORBIDE DINITRATE 10 MG TABLET PO SCH ×2 (08:54→16:18)
[2019-10-10] MEDS: ASPIRIN 81 MG TABLET EC PO SCH (08:54)
[2019-10-10] MEDS: AMLODIPINE 2.5 MG TABLET PO SCH (08:54)
[2019-10-10] MEDS: LOSARTAN 50MG TABLET PO SCH (08:54)
[2019-10-10] MEDS: OMEPRAZOLE 20 MG CAPSULE.DR PO SCH (08:54)
[2019-10-10] MEDS: CARVEDILOL 25 MG TABLET PO SCH (08:54)
[2019-10-10] MEDS ORDERED: AMLO2.5T5 PO (13:44)
[2019-10-10] MEDS ORDERED: POTA20TA89 PO (13:44)
[2019-10-10] MEDS ORDERED: CARV25TA12 PO (13:44)
[2019-10-10] MEDS ORDERED: CHOL400T12 PO (13:51)
[2019-10-10 15:32] VITALS: BP 142/53
== END 2019-10-10 17:04 | DRG 637 ==
LOC: ED 16:18 → EDIP 16:46 → 5SO 17:21 → 3N 10-07 21:05
PROVIDERS: ADMIT Internal Medicine Infectious Disease; ATTEND Hospitalist
DX: E11.649 Type 2 diabetes mellitus with hypoglycemia without coma (principal); I50.43 Acute on chronic combined systolic (congestive) and diastolic (congestive) heart failure; J96.10 Chronic respiratory failure, unspecified whether with hypoxia or hypercapnia; D68.69 Other thrombophilia; I48.21 Permanent atrial fibrillation; N17.9 Acute kidney failure, unspecified; I11.0 Hypertensive heart disease with heart failure; D63.8 Anemia in other chronic diseases classified elsewhere; E03.2 Hypothyroidism due to medicaments and other exogenous substances; E78.00 Pure hypercholesterolemia, unspecified; E78.5 Hyperlipidemia, unspecified; E83.51 Hypocalcemia; I07.1 Rheumatic tricuspid insufficiency; I25.10 Atherosclerotic heart disease of native coronary artery without angina pectoris; I25.5 Ischemic cardiomyopathy; I35.0 Nonrheumatic aortic (valve) stenosis; I35.1 Nonrheumatic aortic (valve) insufficiency; Z82.49 Family history of ischemic heart disease and other diseases of the circulatory system; Z85.850 Personal history of malignant neoplasm of thyroid; Z95.0 Presence of cardiac pacemaker; Z95.1 Presence of aortocoronary bypass graft; Z95.3 Presence of xenogenic heart valve; Z99.81 Dependence on supplemental oxygen
CPT/HCPCS: 36415; 71045; 80048; 80053; 82010; 82040; 82306; 82330; 82962; 83036; 83735; 83880; 83970; 84100; 84484; 85025; 93005; 99285; G0378; J1650; J1940; J1815

== ENCOUNTER 2019-10-23 08:41 | Outpatient (CLI) | payer MEDICARE, MEDICAID ==
[~2019-10-23 08:41] MED LIST changes: +CHOL400T12 PO
== END 2019-10-23 23:59 | disposition home or self-care (01) ==
LOC: PETCFH 08:41
PROVIDERS: ATTEND Pathology Hematology
DX: Z02.9 Encounter for administrative examinations, unspecified (principal)

== ENCOUNTER → 2019-10-27 | Outpatient (CLI) | payer MEDICARE, MEDICAID | END | disposition home or self-care (01) | LOC: PETCFH 15:15 | PROVIDERS: ATTEND Pathology Hematology | DX: C73 Malignant neoplasm of thyroid gland (principal) | CPT/HCPCS: 78815; A9552 ==

== ENCOUNTER 2020-03-01 07:46 | Outpatient (CLI) | payer MEDICARE, MEDICAID ==
[2020-03-02] MEDS ORDERED: GLIM4TAB8 PO (13:46)
[2020-03-02] MEDS ORDERED: METF500T27 PO (13:46)
[2020-03-02] MEDS ORDERED: ISOS10TA2 PO (13:47)
[2020-03-02] MEDS ORDERED: MIRT30TA97 PO (13:48)
[2020-03-02] MEDS ORDERED: HYDR-3341 PO (13:48)
[2020-03-02] MEDS ORDERED: CARV12.52 PO (13:49)
[2020-03-02] MEDS ORDERED: CALC0.25 PO (13:50)
== END 2020-03-01 23:59 | disposition home or self-care (01) ==
LOC: CFH 07:46
PROVIDERS: ATTEND Internal Medicine Cardiovascular Disease
DX: I08.8 Other rheumatic multiple valve diseases (principal); I10 Essential (primary) hypertension
CPT/HCPCS: 93306

== ENCOUNTER 2020-03-02 13:16 | Inpatient (IN) | payer MEDICAID, MEDICARE ==
[~2020-03-02] VITALS: Ht 162.6 cm; Wt 68.9 kg
--- NOTE | 2020-03-02 13:32 | NUR ---
Pt to room
--- NOTE | 2020-03-02 13:33 | NUR ---
PATIENT ARRIVES BEING SENT FROM HER MD BECAUSE HER LAB WORK FROM [facility] SHOWED ANEMIA, BUT SHE DOESN'T KNOW THE NUMBERS. SHE HAS BEEN FEELING WEEK FOR TWO WEEKS.
[2020-03-02] MEDS ORDERED: METF500T27 PO (13:46)
[2020-03-02] MEDS ORDERED: GLIM4TAB8 PO (13:46)
[2020-03-02] MEDS ORDERED: ISOS10TA2 PO (13:47)
[2020-03-02] MEDS ORDERED: MIRT30TA97 PO (13:48)
[2020-03-02] MEDS ORDERED: HYDR-3341 PO (13:48)
[2020-03-02] MEDS ORDERED: CARV12.52 PO (13:49)
[2020-03-02] MEDS ORDERED: CALC0.25 PO (13:50)
[2020-03-02] MEDS ORDERED: SODIUM CHLORIDE FLUSH 10ML SYR IVF ONE (14:30)
[2020-03-02] MEDS ORDERED: PANTOPRAZOLE 40 MG IV IVPush ONE (14:30)
[2020-03-02 14:31] LABS: BASOPHILS # (AUTO) 0.01 x10^3/uL (0-0.1); BASOPHILS % (AUTO) 0 % (0-1); EOSINOPHILS % (AUTO) 0 % (1-7); LYMPHOCYTES # (AUTO) 0.63 x10^3/uL (1-3.4); LYMPHOCYTES % (AUTO) 11 % (22-44); MD NO; MEAN CORPUSCULAR HEMOGLOBIN 27.7 pg (27.0-34.8); MEAN CORPUSCULAR HGB CONC 32.6 g/dL (32.4-35.8); MEAN CORPUSCULAR VOLUME 84.9 fL (80-100); MEAN PLATELET VOLUME 9.6 fL (7.4-10.4); MONOCYTES # (AUTO) 0.35 x10^3/uL (0.2-0.8); MONOCYTES % (AUTO) 6 % (2-9); NEUTROPHILS # (AUTO) 4.88 x10^3/uL (1.8-6.8); NEUTROPHILS % (AUTO) 83 % (42-75); PLATELET COUNT 188 x10^3/uL (130-400); RED BLOOD COUNT 2.78 x10^6/uL (3.82-5.3); RED CELL DISTRIBUTION WIDTH 14.9 % (9.6-15.2)
[2020-03-02] MEDS ORDERED: PANTOPRAZOLE 40 MG IV ONE (14:33)
[2020-03-02 14:37] LABS: INTERNATIONAL NORMALIZED RATIO 1.15 (0.93-1.1); PROTHROMBIN TIME 12.2 Seconds (9.6-11.5)
[2020-03-02 14:39] LABS: ALANINE AMINOTRANSFERASE 19 U/L (12-78); ALBUMIN 3.2 g/dL (3.4-5.0); ANION GAP 4 mmol/L (5-15); CALCIUM 6.2 mg/dL (8.5-10.1); CHLORIDE 96 mmol/L (98-107); CREATININE 1.22 mg/dL (0.55-1.02)
[2020-03-02 14:41] LABS: ALKALINE PHOSPHATASE 180 U/L (45-117); BILIRUBIN,TOTAL 0.6 mg/dL (0.2-1.0); TOTAL PROTEIN 7.3 g/dL (6.4-8.2)
--- NOTE | 2020-03-02 15:00 | NUR ---
co2 41. aware.
[2020-03-02] MEDS ORDERED: CALCIUM GLUCONATE 0.46MEQ/1ML IVPush ONE (16:00)
[2020-03-02 16:28] VITALS: BP 136/70
[2020-03-02] MEDS ORDERED: CALCIUM GLUCONATE 4.6 MEQ in SODIUM CHLORIDE 0.9% 100 ML IV ONE (16:30)
[2020-03-02 16:43] VITALS: BP 140/65
[2020-03-02 16:53] VITALS: BP 133/68
[2020-03-02 17:03] VITALS: BP 163/61
[2020-03-02] MEDS ORDERED: ONDANSETRON ODT 4 MG PO PRN (17:30)
--- NOTE | 2020-03-02 17:32 | NUR ---
patient report given to Yanet in room 527 cardiac tele
--- NOTE | 2020-03-02 17:43 | NUR ---
DAUGHTER IN LAW: AMADOR . SHE HAS BEEN WITH PATIENT THROUGHOUT ER STAY BUT INFORMED HER THAT WE CAN'T HAVE VISITORS IN HOSPITAL. LET HER KNOW ROOM NUMBER. AMILCAR DAUGHTER:
[2020-03-02 18:28] LABS: TROPONIN I 0.023 ng/mL (0.000-0.045)
[2020-03-02 19:10] VITALS: BP 165/59
[2020-03-02 20:41] VITALS: BP 180/74
[2020-03-02] MEDS: ATORVASTATIN 40 MG TABLET PO SCH (22:36)
[2020-03-02] MEDS: CARVEDILOL 12.5 MG TABLET PO SCH (22:36)
[2020-03-02] MEDS: MIRTAZAPINE 30 MG TABLET PO SCH (22:36)
[2020-03-02] MEDS: HEPARIN 5,000 UNITS/ML, 1ML SQ SCH (22:37)
[2020-03-02] MEDS: INSULIN LISPRO 100 UNITS/ML, PEN SQ-INSULIN SCH (22:42)
[2020-03-02 23:53] LABS: TROPONIN I 0.024 ng/mL (0.000-0.045)
[2020-03-03 01:41] VITALS: BP 155/61
[2020-03-03] MEDS: HEPARIN 5,000 UNITS/ML, 1ML SQ SCH ×3 (05:29→21:41)
[2020-03-03] MEDS: LEVOTHYROXINE 125 MCG TABLET PO SCH (05:29)
[2020-03-03 05:56] LABS: BASOPHILS # (AUTO) 0.02 x10^3/uL (0-0.1); BASOPHILS % (AUTO) 0 % (0-1); EOSINOPHILS % (AUTO) 0 % (1-7); LYMPHOCYTES # (AUTO) 0.51 x10^3/uL (1-3.4); LYMPHOCYTES % (AUTO) 10 % (22-44); MD NO; MEAN CORPUSCULAR HEMOGLOBIN 27.9 pg (27.0-34.8); MEAN CORPUSCULAR HGB CONC 32.5 g/dL (32.4-35.8); MEAN CORPUSCULAR VOLUME 85.9 fL (80-100); MEAN PLATELET VOLUME 9.5 fL (7.4-10.4); MONOCYTES # (AUTO) 0.35 x10^3/uL (0.2-0.8); MONOCYTES % (AUTO) 7 % (2-9); NEUTROPHILS # (AUTO) 4.47 x10^3/uL (1.8-6.8); NEUTROPHILS % (AUTO) 84 % (42-75); PLATELET COUNT 176 x10^3/uL (130-400); RED BLOOD COUNT 3.07 x10^6/uL (3.82-5.3); RED CELL DISTRIBUTION WIDTH 14.7 % (9.6-15.2)
[2020-03-03 06:06] LABS: CHLORIDE 99 mmol/L (98-107)
[2020-03-03 06:14] LABS: ALANINE AMINOTRANSFERASE 20 U/L (12-78); ALBUMIN 3.1 g/dL (3.4-5.0); ALKALINE PHOSPHATASE 192 U/L (45-117); ANION GAP 3 mmol/L (5-15); BILIRUBIN,TOTAL 0.8 mg/dL (0.2-1.0); CALCIUM 6.4 mg/dL (8.5-10.1); CREATININE 0.93 mg/dL (0.55-1.02); TOTAL PROTEIN 6.9 g/dL (6.4-8.2)
[2020-03-03] MEDS: INSULIN LISPRO 100 UNITS/ML, PEN SQ-INSULIN SCH ×4 (07:00→21:34)
[2020-03-03 08:00] VITALS: BP 178/82
[2020-03-03] MEDS: LOSARTAN 50MG TABLET PO SCH (08:38)
[2020-03-03] MEDS: ASPIRIN 81 MG TABLET EC PO SCH (08:38)
[2020-03-03] MEDS: CHOLECALCIFEROL 400 UNITS TABLET PO SCH (08:38)
[2020-03-03] MEDS: CALCITRIOL 0.25 MCG CAPSULE PO SCH (08:38)
[2020-03-03] MEDS: CARVEDILOL 12.5 MG TABLET PO SCH ×2 (08:39→21:32)
[2020-03-03] MEDS: ISOSORBIDE DINITRATE 10 MG TABLET PO SCH (08:39)
[2020-03-03] MEDS: SPIRONOLACTONE 25 MG TABLET PO SCH (08:39)
[2020-03-03] MEDS ORDERED: AMLODIPINE 2.5 MG TABLET PO SCH (09:00)
[2020-03-03] MEDS ORDERED: FUROSEMIDE 20 MG TABLET PO SCH (09:00)
[2020-03-03 14:00] VITALS: BP 166/72
[2020-03-03] MEDS: FUROSEMIDE 40 MG/4 ML IV SCH (18:13)
[2020-03-03 19:17] VITALS: BP 162/72
[2020-03-03] MEDS: ATORVASTATIN 40 MG TABLET PO SCH (21:32)
[2020-03-03] MEDS: MIRTAZAPINE 30 MG TABLET PO SCH (21:32)
[2020-03-04] VITALS (8 sets, daily range): BP systolic 156–189; BP diastolic 68–77
[2020-03-04 05:03] LABS: BASOPHILS # (AUTO) 0.03 x10^3/uL (0-0.1); BASOPHILS % (AUTO) 1 % (0-1); EOSINOPHILS # (AUTO) 0.05 x10^3/uL (0-0.4); EOSINOPHILS % (AUTO) 1 % (1-7); LYMPHOCYTES # (AUTO) 0.61 x10^3/uL (1-3.4); LYMPHOCYTES % (AUTO) 14 % (22-44); MD NO; MEAN CORPUSCULAR HEMOGLOBIN 27.5 pg (27.0-34.8); MEAN CORPUSCULAR HGB CONC 32.1 g/dL (32.4-35.8); MEAN CORPUSCULAR VOLUME 85.6 fL (80-100); MEAN PLATELET VOLUME 10.2 fL (7.4-10.4); MONOCYTES # (AUTO) 0.35 x10^3/uL (0.2-0.8); MONOCYTES % (AUTO) 8 % (2-9); NEUTROPHILS # (AUTO) 3.34 x10^3/uL (1.8-6.8); NEUTROPHILS % (AUTO) 76 % (42-75); PLATELET COUNT 172 x10^3/uL (130-400); RED BLOOD COUNT 3.29 x10^6/uL (3.82-5.3); RED CELL DISTRIBUTION WIDTH 14.7 % (9.6-15.2)
[2020-03-04] MEDS: LEVOTHYROXINE 125 MCG TABLET PO SCH (05:03)
[2020-03-04] MEDS: HEPARIN 5,000 UNITS/ML, 1ML SQ SCH ×3 (05:03→22:24)
[2020-03-04 05:05] LABS: CALCIUM 7.2 mg/dL (8.5-10.1); CHLORIDE 99 mmol/L (98-107)
[2020-03-04 05:09] LABS: ANION GAP 3 mmol/L (5-15); CREATININE 1.03 mg/dL (0.55-1.02)
[2020-03-04] MEDS: INSULIN LISPRO 100 UNITS/ML, PEN SQ-INSULIN SCH ×4 (07:25→21:00)
[2020-03-04] MEDS: ASPIRIN 81 MG TABLET EC PO SCH (09:08)
[2020-03-04] MEDS: CARVEDILOL 12.5 MG TABLET PO SCH ×2 (09:08→22:23)
[2020-03-04] MEDS: CHOLECALCIFEROL 400 UNITS TABLET PO SCH (09:08)
[2020-03-04] MEDS: CALCITRIOL 0.25 MCG CAPSULE PO SCH (09:08)
[2020-03-04] MEDS: FUROSEMIDE 40 MG/4 ML IV SCH ×2 (09:08→17:07)
[2020-03-04] MEDS: SPIRONOLACTONE 25 MG TABLET PO SCH (09:08)
[2020-03-04] MEDS: LOSARTAN 50MG TABLET PO SCH (09:08)
[2020-03-04] MEDS: ISOSORBIDE DINITRATE 10 MG TABLET PO SCH (09:09)
[2020-03-04 10:21] LABS: FREE T4 (FREE THYROXINE) 1.04 ng/dL (0.76-1.46)
[2020-03-04] MEDS ORDERED: ENALAPRILAT 1.25 MG/ML, 2ML IV ONE (13:00)
[2020-03-04] MEDS ORDERED: ENALAPRILAT 1.25 MG/ML, 1ML ONE (13:19)
[2020-03-04] MEDS: LOSARTAN 100 MG TAB PO SCH (14:35)
[2020-03-04] MEDS: MIRTAZAPINE 30 MG TABLET PO SCH (22:23)
[2020-03-04] MEDS: ATORVASTATIN 40 MG TABLET PO SCH (22:23)
[2020-03-05 02:41] VITALS: BP 136/52
[2020-03-05 05:45] LABS: BASOPHILS # (AUTO) 0.01 x10^3/uL (0-0.1); BASOPHILS % (AUTO) 0 % (0-1); EOSINOPHILS # (AUTO) 0.06 x10^3/uL (0-0.4); EOSINOPHILS % (AUTO) 1 % (1-7); LYMPHOCYTES # (AUTO) 0.59 x10^3/uL (1-3.4); LYMPHOCYTES % (AUTO) 11 % (22-44); MD NO; MEAN CORPUSCULAR HEMOGLOBIN 27.8 pg (27.0-34.8); MEAN CORPUSCULAR HGB CONC 32.5 g/dL (32.4-35.8); MEAN CORPUSCULAR VOLUME 85.6 fL (80-100); MEAN PLATELET VOLUME 9.7 fL (7.4-10.4); MONOCYTES # (AUTO) 0.44 x10^3/uL (0.2-0.8); MONOCYTES % (AUTO) 8 % (2-9); NEUTROPHILS # (AUTO) 4.15 x10^3/uL (1.8-6.8); NEUTROPHILS % (AUTO) 79 % (42-75); PLATELET COUNT 168 x10^3/uL (130-400); RED CELL DISTRIBUTION WIDTH 15.1 % (9.6-15.2)
[2020-03-05 05:59] LABS: ANION GAP 5 mmol/L (5-15); CALCIUM 7.3 mg/dL (8.5-10.1); CHLORIDE 97 mmol/L (98-107)
[2020-03-05] MEDS: LEVOTHYROXINE 125 MCG TABLET PO SCH (06:20)
[2020-03-05] MEDS: HEPARIN 5,000 UNITS/ML, 1ML SQ SCH ×3 (06:21→21:51)
[2020-03-05 06:51] LABS: OCCULT BLOOD NEGATIVE (NEGATIVE)
[2020-03-05] MEDS: INSULIN LISPRO 100 UNITS/ML, PEN SQ-INSULIN SCH ×4 (07:00→21:00)
[2020-03-05 08:09] VITALS: BP 169/64
[2020-03-05] MEDS ORDERED: FUROSEMIDE 20 MG/2 ML ONE ×2 (08:51→16:48)
[2020-03-05] MEDS: ASPIRIN 81 MG TABLET EC PO SCH (08:58)
[2020-03-05] MEDS: SPIRONOLACTONE 25 MG TABLET PO SCH (08:58)
[2020-03-05] MEDS: LOSARTAN 100 MG TAB PO SCH (08:58)
[2020-03-05] MEDS: ISOSORBIDE DINITRATE 10 MG TABLET PO SCH (08:58)
[2020-03-05] MEDS: CHOLECALCIFEROL 400 UNITS TABLET PO SCH (08:58)
[2020-03-05] MEDS: CALCITRIOL 0.25 MCG CAPSULE PO SCH (08:58)
[2020-03-05] MEDS: FUROSEMIDE 40 MG/4 ML IV SCH ×2 (08:59→16:56)
[2020-03-05] MEDS: CARVEDILOL 12.5 MG TABLET PO SCH (08:59)
[2020-03-05] MEDS ORDERED: GABAPENTIN 300 MG CAPSULE PO PRN (09:30)
[2020-03-05] MEDS ORDERED: HYDROcodone/APAP 5/325 TABLET PO PRN ×2 (09:30)
[2020-03-05] MEDS ORDERED: CARVEDILOL 12.5 MG TABLET ONE (09:34)
[2020-03-05] MEDS ORDERED: CARVEDILOL 12.5 MG TABLET PO ONE (10:00)
[2020-03-05 12:52] VITALS: BP 147/69
[2020-03-05 20:41] VITALS: BP 119/45
[2020-03-05] MEDS: CARVEDILOL 25 MG TABLET PO SCH (21:51)
[2020-03-05] MEDS: MIRTAZAPINE 30 MG TABLET PO SCH (21:51)
[2020-03-05] MEDS: ATORVASTATIN 40 MG TABLET PO SCH (21:51)
[2020-03-05 21:54] VITALS: BP 152/76
[2020-03-06 02:19] VITALS: BP 126/65
[2020-03-06] MEDS: HEPARIN 5,000 UNITS/ML, 1ML SQ SCH ×2 (05:16→14:00)
[2020-03-06] MEDS: LEVOTHYROXINE 125 MCG TABLET PO SCH (05:16)
[2020-03-06 05:17] VITALS: BP 151/70
[2020-03-06 05:59] LABS: ANION GAP 3 mmol/L (5-15); CALCIUM 7.5 mg/dL (8.5-10.1); CHLORIDE 99 mmol/L (98-107); CREATININE 1.27 mg/dL (0.55-1.02)
[2020-03-06 07:20] LABS: BASOPHILS # (AUTO) 0.02 x10^3/uL (0-0.1); BASOPHILS % (AUTO) 0 % (0-1); EOSINOPHILS % (AUTO) 0 % (1-7); LYMPHOCYTES # (AUTO) 0.56 x10^3/uL (1-3.4); LYMPHOCYTES % (AUTO) 12 % (22-44); MD NO; MEAN CORPUSCULAR HEMOGLOBIN 28.2 pg (27.0-34.8); MEAN CORPUSCULAR HGB CONC 32.6 g/dL (32.4-35.8); MEAN CORPUSCULAR VOLUME 86.5 fL (80-100); MEAN PLATELET VOLUME 9.7 fL (7.4-10.4); MONOCYTES # (AUTO) 0.27 x10^3/uL (0.2-0.8); MONOCYTES % (AUTO) 6 % (2-9); NEUTROPHILS # (AUTO) 3.69 x10^3/uL (1.8-6.8); NEUTROPHILS % (AUTO) 81 % (42-75); PLATELET COUNT 165 x10^3/uL (130-400); RED BLOOD COUNT 3.25 x10^6/uL (3.82-5.3); RED CELL DISTRIBUTION WIDTH 14.9 % (9.6-15.2)
[2020-03-06] MEDS: INSULIN LISPRO 100 UNITS/ML, PEN SQ-INSULIN SCH ×2 (08:00→12:27)
[2020-03-06 08:45] VITALS: BP 152/70
[2020-03-06] MEDS: SPIRONOLACTONE 25 MG TABLET PO SCH (08:51)
[2020-03-06] MEDS: CALCITRIOL 0.25 MCG CAPSULE PO SCH (08:57)
[2020-03-06] MEDS: ASPIRIN 81 MG TABLET EC PO SCH (08:57)
[2020-03-06] MEDS: ISOSORBIDE DINITRATE 10 MG TABLET PO SCH (08:58)
[2020-03-06] MEDS: CHOLECALCIFEROL 400 UNITS TABLET PO SCH (08:58)
[2020-03-06] MEDS: CARVEDILOL 25 MG TABLET PO SCH (08:58)
[2020-03-06] MEDS: LOSARTAN 100 MG TAB PO SCH (08:58)
[2020-03-06] MEDS ORDERED: FUROSEMIDE 20 MG TABLET PO SCH (09:00)
[2020-03-06] MEDS ORDERED: GABA300C10 PO (11:07)
[2020-03-06] MEDS ORDERED: CARV25TA12 PO (11:07)
[2020-03-06] MEDS ORDERED: HYDR-3342 PO (11:07)
[2020-03-06] MEDS ORDERED: FERR325T16 PO (11:23)
[2020-03-06] MEDS ORDERED: FERROUS GLUCONATE 324 MG TABLET PO SCH (11:30)
[2020-03-06 11:49] LABS: % IRON SATURATION 13 % (20-55); IRON LEVEL 49 mcg/dL (50-170); TOTAL IRON BINDING CAPACITY 367 mcg/dL (250-450)
[2020-03-06 12:42] VITALS: BP 163/66
== END 2020-03-06 15:07 | disposition home or self-care (01) | DRG 812 ==
LOC: ED 14:12 → EDIP 16:01 → 5SO 18:15
PROVIDERS: ADMIT Internal Medicine; ATTEND Internal Medicine
PROC: 30233N1 Transfusion of Nonautologous Red Blood Cells into Peripheral Vein, Percutaneous Approach (ICD-10-PCS; principal; 2020-03-02)
PROC: 4B02XSZ Measurement of Cardiac Pacemaker, External Approach (ICD-10-PCS; 2020-03-05)
DX: D64.9 Anemia, unspecified (principal); J96.10 Chronic respiratory failure, unspecified whether with hypoxia or hypercapnia; I50.42 Chronic combined systolic (congestive) and diastolic (congestive) heart failure; D68.69 Other thrombophilia; E87.3 Alkalosis; I11.0 Hypertensive heart disease with heart failure; E78.00 Pure hypercholesterolemia, unspecified; E11.9 Type 2 diabetes mellitus without complications; E83.51 Hypocalcemia; T45.515A Adverse effect of anticoagulants, initial encounter; E78.5 Hyperlipidemia, unspecified; E89.0 Postprocedural hypothyroidism; I27.29 Other secondary pulmonary hypertension; I48.0 Paroxysmal atrial fibrillation; I27.81 Cor pulmonale (chronic); I07.1 Rheumatic tricuspid insufficiency; F32.9 Major depressive disorder, single episode, unspecified; R13.10 Dysphagia, unspecified; R63.0 Anorexia; Z95.0 Presence of cardiac pacemaker; Z95.1 Presence of aortocoronary bypass graft; Z85.850 Personal history of malignant neoplasm of thyroid; Z82.49 Family history of ischemic heart disease and other diseases of the circulatory system; Z95.3 Presence of xenogenic heart valve
CPT/HCPCS: 36415; 36430; 71045; 74220; 76536; 80048; 80053; 82272; 82306; 82607; 82962; 83540; 83550; 83690; 83735; 83970; 84439; 84443; 84484; 85025; 85610; 85730; 86850; 86900; 86923; 93005; 99285; G0378; J0610; J1644; J1940; C9113; J1815; P9016

== ENCOUNTER 2020-06-03 12:43 | Inpatient (IN) | payer MEDICARE, MEDICAID ==
[~2020-06-03] VITALS: Ht 165.1 cm; Wt 78.8 kg
[~2020-06-03 12:43] MED LIST changes: +CALC0.25 PO; +FERR325T16 PO; +GABA300C10 PO; +GLIM4TAB8 PO; +HYDR-3342 PO; +LACT20SO13 PO; +METF500T27 PO; +MIRT30TA97 PO
--- NOTE | 2020-06-03 12:59 | NUR ---
BIB [facility] FROM HOME FOR LETHARGY. PT [place]INGAP[place] SPEAKING, LIVES WITH FAMILY. OXYGEN LOW WHEN LAYING DOWN, THEN INCREASES WHEN SITTING UP. BOTTOM SANDER [facility]: PIV 18G LAC. DAUGHTER AT BEDSIDE. PT MORE CONFUSED AND WEAKER STARTING YESTERDAY. PT USUALLY AMBULATORY AT HOME WITH WALKER. PT CONNECTED TO MONITORING. CALL LIGHT IN REACH. FALL PRECAUTIONS IN PLACE.
[2020-06-03 13:30] LABS: BASOPHILS % (AUTO) 0 % (0-1); EOSINOPHILS % (AUTO) 0 % (1-7); LYMPHOCYTES # (AUTO) 0.43 x10^3/uL (1-3.4); LYMPHOCYTES % (AUTO) 6 % (22-44); MD NO; MEAN CORPUSCULAR HEMOGLOBIN 28.9 pg (27.0-34.8); MEAN CORPUSCULAR HGB CONC 31.2 g/dL (32.4-35.8); MEAN PLATELET VOLUME 9.6 fL (7.4-10.4); MONOCYTES # (AUTO) 0.23 x10^3/uL (0.2-0.8); MONOCYTES % (AUTO) 3 % (2-9); NEUTROPHILS # (AUTO) 6.98 x10^3/uL (1.8-6.8); NEUTROPHILS % (AUTO) 91 % (42-75); PLATELET COUNT 149 x10^3/uL (130-400); RED BLOOD COUNT 3.05 x10^6/uL (3.82-5.3); RED CELL DISTRIBUTION WIDTH 17.3 % (9.6-15.2)
[2020-06-03 13:43] LABS: CHLORIDE 88 mmol/L (98-107)
[2020-06-03 13:53] LABS: ALANINE AMINOTRANSFERASE 37 U/L (12-78); ALBUMIN 4.1 g/dL (3.4-5.0); ALKALINE PHOSPHATASE 315 U/L (45-117); BILIRUBIN,TOTAL 0.4 mg/dL (0.2-1.0); CALCIUM 8.3 mg/dL (8.5-10.1); CREATININE 2.24 mg/dL (0.55-1.02); TOTAL PROTEIN 7.6 g/dL (6.4-8.2); TROPONIN I < 0.015 ng/mL (0.000-0.045)
--- NOTE | 2020-06-03 13:55 | NUR ---
UA COLLECTED VIA STRAIGHT CATH, WITH ASSISTANCE FROM SECOND RN. UA COLLECTED AND TAKEN TO LAB. DAUGHTER AT BEDSIDE.
[2020-06-03 14:14] LABS: MICROSCOPIC NOT IND
[2020-06-03 14:28] LABS: ANION GAP 3 mmol/L (5-15)
[2020-06-03] MEDS ORDERED: NALOXONE 0.4 MG/ML, 1ML IVPush ONE (14:30)
[2020-06-03] MEDS ORDERED: NALOXONE 0.4 MG/ML, 1ML ONE (14:31)
--- NOTE | 2020-06-03 14:35 | NUR ---
NARCAN GIVEN. NO CHANGE IN PT. PT RESTING COMFORTABLY ON GURNEY. DUANEN.
[2020-06-03 14:45] LABS: FREE T4 (FREE THYROXINE) 0.31 ng/dL (0.76-1.46)
[2020-06-03 14:52] LABS: INTERNATIONAL NORMALIZED RATIO 1.02 (0.93-1.1); PROTHROMBIN TIME 10.8 Seconds (9.6-11.5)
[2020-06-03 14:56] LABS: AMPHETAMINE SCREEN, URINE Negative (Negative); BARBITURATE SCREEN, URINE Negative (Negative); BENZODIAZEPINE SCREEN, URINE Negative (Negative); CANNABINOID SCREEN, URINE Negative (Negative); COCAINE SCREEN, URINE Negative (Negative); METHADONE SCREEN, URINE Negative (Negative); OPIATE SCREEN, URINE Negative (Negative)
[2020-06-03] MEDS ORDERED: HYDROCORTISONE 100 MG INJ. IVPush ONE (15:00)
--- NOTE | 2020-06-03 15:02 | NUR ---
HOSPITALIST AT BEDSIDE.
[2020-06-03] MEDS ORDERED: HYDROCORTISONE 100 MG INJ. ONE (15:06)
[2020-06-03] MEDS ORDERED: LEVOTHYROXINE 100 MCG INJ IVPush ONE (15:30)
--- NOTE | 2020-06-03 16:05 | NUR ---
PT ON OPTIFLO 72-75 AND 45L. OXYGEN LEVEL 93%. TASK RN AT BEDSIDE FOR US PIV PLACEMENT. PT POSITIONED FOR COMFORT. NADN. DAUGHTER AT BEDSIDE.
--- NOTE | 2020-06-03 16:28 | NUR ---
PT RESTING COMFORTABLY ON GURNEY. OPTIFLOW SETTING THE SAME. OXYGEN LEVEL 96%. PT MORE ALERT THAN WHEN CAME IN. PT TALKING A LITTLE WITH DAUGHTER. PT KOREAN SPEAKING.
--- NOTE | 2020-06-03 17:13 | NUR ---
PT DENIES NEEDING TO USE BEDPAN AT THIS TIME. PT DAUGHTER STATES SHE IS WEARING A BRIEF IF NEEDED. PT AND DAUGHTER AWARE TO CALL FOR ANY NEEDS.
--- NOTE | 2020-06-03 19:07 | NUR ---
PT RESTING COMFORTABLY ON GURNEY. NADN. DAUGHTER AT BEDSIDE.
[2020-06-03] MEDS ORDERED: DEXTROSE 50%, 50ML SYRINGE IVPush PRN (19:30)
[2020-06-03] MEDS ORDERED: PIPERACILLIN/TAZO/PMX 3.375GM 50 ML IV ONE (19:30)
[2020-06-03] MEDS ORDERED: PHARMACY MAY ADJ FOR RENAL FX MC PRN (19:30)
[2020-06-03] MEDS ORDERED: SODIUM CHLORIDE 0.9% 1,000 ML IV SCH (19:30)
[2020-06-03] MEDS ORDERED: VANCOMYCIN PER PHARMACY MC PRN (19:30)
[2020-06-03] MEDS ORDERED: GLUCAGON 1 MG IM PRN (19:30)
[2020-06-03] MEDS ORDERED: DEXTROSE 4 GM TAB.CHEW PO PRN (19:30)
[2020-06-03] MEDS ORDERED: VANCOMYCIN PMX 1GM/200ML 200 ML IV ONE (19:30)
[2020-06-03] MEDS: PIPERACILLIN/TAZO/PMX 2.25GM 50 ML IV SCH (19:30)
[2020-06-03] MEDS ORDERED: PIPERACILLIN/TAZO/PMX 3.375GM 50 ML ONE (19:49)
[2020-06-03] MEDS: SODIUM CHLORIDE FLUSH 10ML SYR IVF SCH (19:50)
[2020-06-03] MEDS ORDERED: HEPARIN 5,000 UNITS/ML, 1ML ONE (19:51)
[2020-06-03] MEDS: INSULIN LISPRO 100 UNITS/ML, PEN SQ-INSULIN SCH (19:58)
[2020-06-03] MEDS: HEPARIN 5,000 UNITS/ML, 1ML SQ SCH (19:58)
--- NOTE | 2020-06-03 20:00 | NUR ---
MEDS ADMIN PER JAN. PT RESTING COMFORTABLY ON GURNEW CARLISLE. TRUONG.
[2020-06-03] MEDS: SODIUM CHLORIDE 0.9% 1,000 ML IV SCH (20:13)
--- NOTE | 2020-06-03 21:11 | NUR ---
PT RESTING COMFORTABLY. NADN. PT ADJUSTED FOR COMFORT. DAUGHTER AT BEDSIDE.
--- NOTE | 2020-06-03 22:27 | NUR ---
PT RESTING COMFORTABLY. NADN. PT ADJUSTED FOR COMFORT. DAUGHTER AT BEDSIDE.
--- NOTE | 2020-06-03 23:01 | NUR ---
REPORT RECEIVED FROM DAKOTA CARABALLO. PLAN OF CARE DISCUSSED.
--- NOTE | 2020-06-03 23:37 | NUR ---
PATIENT RESTING, VSS, MONITORING IN PLACE, RESPIRATIONS EVEN AND UNLABORED. CALL LIGHT IN REACH.
[2020-06-03] MEDS ORDERED: PHARMACOKINETIC MONITORING MC PRN (23:45)
--- NOTE | 2020-06-04 00:10 | NUR ---
PATIENT RESTING, VSS, MONITORING IN PLACE, RESPIRATIONS EVEN AND UNLABORED. CALL LIGHT IN REACH.
--- NOTE | 2020-06-04 00:21 | NUR ---
REPORT GIVEN TO DAKOTA VIERA. PLAN OF CARE DISCUSSED
--- NOTE | 2020-06-04 00:57 | NUR ---
Break RN: Patient sleeping in bed. Respirations even and unlabored on optiflow.
--- NOTE | 2020-06-04 02:01 | NUR ---
PATIENT IS SLEEPING COMFORTABLY ON STRETCHER, TOLERATING OPTIFLOW,VSS,NAD. WILL CONTINUE TO MONITOR
--- NOTE | 2020-06-04 03:06 | NUR ---
PATIENT MOVED TO A HOSPTIAL BED FOR COMFORT
[2020-06-04] MEDS ORDERED: VANCOMYCIN 1,000 MG in SODIUM CHLORIDE 0.9% 100 ML IV ONE (03:30)
[2020-06-04] MEDS: PIPERACILLIN/TAZO/PMX 2.25GM 50 ML IV SCH ×3 (03:30→23:01)
[2020-06-04] MEDS ORDERED: VANCOMYCIN 1,200 MG in SODIUM CHLORIDE 0.9% 250 ML IV SCH (03:30)
[2020-06-04] MEDS: HEPARIN 5,000 UNITS/ML, 1ML SQ SCH ×3 (04:00→21:08)
--- NOTE | 2020-06-04 04:02 | NUR ---
SPOKE WITH RT DUE TO PATIENT BEING ON THE OPTI FLOW AND OXYGEN LEVELS ARE 75%. RT REPORTED SHE WILL COME DOWN AND ADJUST OPTIFLOW. PATIENT IS CONFUSED AND PULLING ON HER LEADS AND WIRES.
[2020-06-04] MEDS ORDERED: HALOPERIDOL 5 MG/ML ONE (04:26)
[2020-06-04] MEDS ORDERED: FUROSEMIDE 20 MG/2 ML ONE (04:26)
--- NOTE | 2020-06-04 04:41 | NUR ---
RT AT BEDSIDE, MAXED ON OPTI FLOW AND PATIENT IS STILL AROUND MID 70%. SPOKE WITH HOSPATLIST AND HOSPATLIST VERBALLY ORDERED 2MG OF HALDOL AND 20 IV LASIX
--- NOTE | 2020-06-04 04:45 | NUR ---
SPOKE WITH OK TO GIVE IV LASIX EVEN WITH CREATINE LEVELS
[2020-06-04] MEDS ORDERED: HALOPERIDOL 5 MG/ML IV PRN (05:00)
[2020-06-04] MEDS ORDERED: FUROSEMIDE 20 MG/2 ML IV ONE (05:00)
--- NOTE | 2020-06-04 05:03 | NUR ---
PURWICK PLACED TO MONITOR INTAKE AND OUTPUT. PATIENT IS MORE CALM AFTER MEDICATION, OXYGEN SLIGHTLY IMPROVED
--- NOTE | 2020-06-04 05:24 | NUR ---
RN SPOKE TO MD AGAIN ABOUT PATIENTS OXYGEN LEVEL AT 75% MAXED ON OPTIFLOW. MD SUGGESTED BIPAP BUT RT WOULDNT SUGGEST BIPAP DUE TO PATIENTS MENTAL STATUS. PATIENT CONTINUES TO BE LETHARGIC. RN PLACED PATIENT ON A NONREBREATHER OVER THE OPTIFLOW AND PATIENT IS NOW AT 98%
[2020-06-04 05:25] LABS: BASOPHILS % (AUTO) 0 % (0-1); EOSINOPHILS % (AUTO) 0 % (1-7); LYMPHOCYTES # (AUTO) 0.35 x10^3/uL (1-3.4); LYMPHOCYTES % (AUTO) 7 % (22-44); MD NO; MEAN CORPUSCULAR HEMOGLOBIN 28.9 pg (27.0-34.8); MEAN CORPUSCULAR HGB CONC 31.3 g/dL (32.4-35.8); MEAN PLATELET VOLUME 10.7 fL (7.4-10.4); MONOCYTES # (AUTO) 0.22 x10^3/uL (0.2-0.8); MONOCYTES % (AUTO) 4 % (2-9); NEUTROPHILS % (AUTO) 90 % (42-75); PLATELET COUNT 125 x10^3/uL (130-400); RED BLOOD COUNT 2.94 x10^6/uL (3.82-5.3); RED CELL DISTRIBUTION WIDTH 17.7 % (9.6-15.2)
[2020-06-04 05:30] LABS: ALANINE AMINOTRANSFERASE 30 U/L (12-78); ALBUMIN 3.3 g/dL (3.4-5.0); CALCIUM 7.4 mg/dL (8.5-10.1); CREATININE 2.47 mg/dL (0.55-1.02)
[2020-06-04 05:54] LABS: ANION GAP 2 mmol/L (5-15); CHLORIDE 95 mmol/L (98-107)
[2020-06-04 06:03] LABS: BILIRUBIN,TOTAL 0.7 mg/dL (0.2-1.0)
[2020-06-04 06:04] LABS: ALKALINE PHOSPHATASE 272 U/L (45-117); FREE T4 (FREE THYROXINE) 0.45 ng/dL (0.76-1.46)
[2020-06-04] MEDS: SODIUM CHLORIDE 0.9% 1,000 ML IV SCH ×2 (06:13→16:05)
--- NOTE | 2020-06-04 06:20 | NUR ---
attempted to call hospatlist on the need for IV FLUIDS after administering IV LASIX no answer at this time, will attempt again
--- NOTE | 2020-06-04 06:40 | NUR ---
patients oxygen improved but she started to become more restless even after the haldol, patient started to pull her optiflow off and leads, hospatilist notifed and soft restraints applied on patietnt
--- NOTE | 2020-06-04 06:45 | NUR ---
restraints started at 0545, patient tolerated it well, good CSM,
[2020-06-04] MEDS: INSULIN LISPRO 100 UNITS/ML, PEN SQ-INSULIN SCH ×4 (07:00→21:11)
--- NOTE | 2020-06-04 07:01 | NUR ---
report from carmela
--- NOTE | 2020-06-04 07:30 | NUR ---
DISCUSSED W DEFTU PT POC. NEED RECORDS FROM [facility], START IVF,. PT RR INCREASED, WORK OF BREATHING INCREASED. VSS
[2020-06-04] MEDS ORDERED: HYDROCORTISONE 100 MG INJ. ONE (09:48)
--- NOTE | 2020-06-04 09:54 | NUR ---
PT PULLED OFF MULTIMEDIA TEACHER AND IV. NEW IV ESTABLISHED. SOFT RESTRAINTS IN PLACE. VSS. MEDICATED PER ORDERS
[2020-06-04] MEDS: HYDROCORTISONE 100 MG INJ. IVPush SCH (09:55)
[2020-06-04] MEDS: LEVOTHYROXINE 100 MCG INJ IVPush SCH (10:08)
--- NOTE | 2020-06-04 10:58 | NUR ---
REPORT TO MRAKIE
--- NOTE | 2020-06-04 12:04 | NUR ---
BREAK RN. PT REPOSITIONED IN BED FOR COMFORT. FSBS DONE, NO NEED FOR INSULIN PER PROTOCOL. PT REMAINS ON MONITORS, VSS. CONT TO MONITOR.
[2020-06-04] MEDS ORDERED: HEPARIN 5,000 UNITS/ML, 1ML ONE (12:16)
[2020-06-04] MEDS: SODIUM CHLORIDE FLUSH 10ML SYR IVF SCH ×2 (12:35→21:11)
--- NOTE | 2020-06-04 14:04 | NUR ---
ASSUMED CARE OF PT AT THIS TIME. PT IN RIGHT UPPER ARM RESTRAINT ONLY TO PREVENT REMOVAL OF MONITORS AND IV. PT INTERMITTENTLY DROWSY BUT FIDGITING IN BED AT THIS TIME. PT REPOSITIONED FOR COMFORT. PT REMAINS ON MONITORS, VSS. CONT TO MONITOR.
--- NOTE | 2020-06-04 15:08 | NUR ---
PT BEGAN DESATTING TO LOW 80'S. PT REPOSITIONED TO SUPPORT BETTER AIRFLOW, HOSPITALIST AWARE.
--- NOTE | 2020-06-04 16:05 | NUR ---
PT BLOOD GLUCOSE 134, INAPPROPRIATE TO ADMIN INSULIN AT THIS TIME. PT RESTING, MONITORS IN PLACE. PT NOT FOLLOWING COMMANDS, HIGH FLOW O2 IN PLACE
[2020-06-05 01:40] VITALS: BP 95/42
[2020-06-05 04:37] VITALS: BP 115/40
[2020-06-05 04:43] LABS: BASOPHILS % (AUTO) 0 % (0-1); EOSINOPHILS % (AUTO) 0 % (1-7); LYMPHOCYTES # (AUTO) 0.45 x10^3/uL (1-3.4); LYMPHOCYTES % (AUTO) 9 % (22-44); MD NO; MEAN CORPUSCULAR HGB CONC 31.2 g/dL (32.4-35.8); MEAN PLATELET VOLUME 10.4 fL (7.4-10.4); MONOCYTES % (AUTO) 8 % (2-9); NEUTROPHILS # (AUTO) 4.44 x10^3/uL (1.8-6.8); NEUTROPHILS % (AUTO) 84 % (42-75); PLATELET COUNT 144 x10^3/uL (130-400); RED BLOOD COUNT 3.08 x10^6/uL (3.82-5.3); RED CELL DISTRIBUTION WIDTH 17.4 % (9.6-15.2)
[2020-06-05] MEDS: SODIUM CHLORIDE 0.9% 1,000 ML IV SCH ×3 (04:52→21:49)
[2020-06-05 04:53] LABS: ALBUMIN 3.1 g/dL (3.4-5.0); CALCIUM 6.7 mg/dL (8.5-10.1); CHLORIDE 96 mmol/L (98-107)
[2020-06-05] MEDS: HEPARIN 5,000 UNITS/ML, 1ML SQ SCH ×3 (04:53→19:46)
[2020-06-05 05:11] LABS: ALANINE AMINOTRANSFERASE 31 U/L (12-78); ALKALINE PHOSPHATASE 260 U/L (45-117); ANION GAP 4 mmol/L (5-15); BILIRUBIN,TOTAL 0.5 mg/dL (0.2-1.0); CREATININE 3.05 mg/dL (0.55-1.02); VANCOMYCIN,RANDOM 11.4 mcg/mL
[2020-06-05] MEDS: INSULIN LISPRO 100 UNITS/ML, PEN SQ-INSULIN SCH ×4 (07:00→19:47)
[2020-06-05] MEDS: SODIUM CHLORIDE FLUSH 10ML SYR IVF SCH ×2 (07:44→19:46)
[2020-06-05] MEDS: HYDROCORTISONE 100 MG INJ. IVPush SCH (09:00)
[2020-06-05] MEDS ORDERED: LIOTHYRONINE 5 MCG TABLET PO SCH (09:00)
[2020-06-05] MEDS: LEVOTHYROXINE 100 MCG INJ IVPush SCH (09:00)
[2020-06-05] MEDS: PIPERACILLIN/TAZO/PMX 2.25GM 50 ML IV SCH ×2 (09:00→16:33)
[2020-06-05] MEDS ORDERED: VANCOMYCIN 1,200 MG in SODIUM CHLORIDE 0.9% 250 ML IV ONE (09:30)
[2020-06-06] MEDS ORDERED: SODIUM CHLORIDE 0.9%, 500ML IVBOLUS ONE ×2 (01:00→08:30)
[2020-06-06 01:39] LABS: BASOPHILS % (AUTO) 0 % (0-1); EOSINOPHILS # (AUTO) 0.02 x10^3/uL (0-0.4); EOSINOPHILS % (AUTO) 1 % (1-7); LYMPHOCYTES % (AUTO) 7 % (22-44); MD NO; MEAN CORPUSCULAR HEMOGLOBIN 28.9 pg (27.0-34.8); MEAN PLATELET VOLUME 10.1 fL (7.4-10.4); MONOCYTES # (AUTO) 0.25 x10^3/uL (0.2-0.8); MONOCYTES % (AUTO) 5 % (2-9); NEUTROPHILS # (AUTO) 4.74 x10^3/uL (1.8-6.8); NEUTROPHILS % (AUTO) 88 % (42-75); PLATELET COUNT 162 x10^3/uL (130-400); RED BLOOD COUNT 2.84 x10^6/uL (3.82-5.3)
[2020-06-06 01:47] LABS: ANION GAP 6 mmol/L (5-15); CALCIUM 6.1 mg/dL (8.5-10.1); CHLORIDE 99 mmol/L (98-107); CREATININE 3.43 mg/dL (0.55-1.02)
[2020-06-06] MEDS: PIPERACILLIN/TAZO/PMX 2.25GM 50 ML IV SCH ×3 (02:06→17:16)
[2020-06-06 03:22] VITALS: BP 94/36
[2020-06-06] MEDS: HEPARIN 5,000 UNITS/ML, 1ML SQ SCH ×3 (04:16→20:00)
[2020-06-06] MEDS: SODIUM CHLORIDE 0.9% 1,000 ML IV SCH ×2 (04:17→17:16)
[2020-06-06] MEDS: LIOTHYRONINE 5 MCG TABLET PO SCH ×4 (07:00→21:24)
[2020-06-06] MEDS: INSULIN LISPRO 100 UNITS/ML, PEN SQ-INSULIN SCH ×4 (07:59→21:29)
[2020-06-06] MEDS: LEVOTHYROXINE 100 MCG INJ IVPush SCH (09:04)
[2020-06-06] MEDS: HYDROCORTISONE 100 MG INJ. IVPush SCH ×2 (09:04→16:03)
[2020-06-06] MEDS: SODIUM CHLORIDE FLUSH 10ML SYR IVF SCH ×2 (09:04→19:59)
[2020-06-06] MEDS ORDERED: ALBUMIN HUMAN 25% 100 ML IV ONE ×2 (10:00)
[2020-06-06] MEDS: NOREPINEPHRINE 8 MG in SODIUM CHLORIDE 0.9% 242 ML IV PRN ×2 (10:24→19:59)
[2020-06-07] MEDS: HYDROCORTISONE 100 MG INJ. IVPush SCH ×3 (00:59→16:02)
[2020-06-07] MEDS: PIPERACILLIN/TAZO/PMX 2.25GM 50 ML IV SCH ×3 (00:59→17:24)
[2020-06-07 04:00] VITALS: BP 111/21
[2020-06-07] MEDS: SODIUM CHLORIDE 0.9% 1,000 ML IV SCH ×2 (04:32→16:02)
[2020-06-07] MEDS: HEPARIN 5,000 UNITS/ML, 1ML SQ SCH ×3 (04:40→20:27)
[2020-06-07] MEDS: INSULIN LISPRO 100 UNITS/ML, PEN SQ-INSULIN SCH ×4 (06:01→20:31)
[2020-06-07] MEDS: NOREPINEPHRINE 8 MG in SODIUM CHLORIDE 0.9% 242 ML IV PRN ×2 (07:00→20:29)
[2020-06-07] MEDS: LIOTHYRONINE 5 MCG TABLET PO SCH ×3 (09:24→20:28)
[2020-06-07] MEDS: SODIUM CHLORIDE FLUSH 10ML SYR IVF SCH ×2 (09:24→20:28)
[2020-06-07] MEDS: LEVOTHYROXINE 100 MCG INJ IVPush SCH (09:24)
[2020-06-07 11:40] LABS: ALBUMIN 3.4 g/dL (3.4-5.0); ANION GAP 9 mmol/L (5-15); CHLORIDE 103 mmol/L (98-107); CREATININE 4.82 mg/dL (0.55-1.02)
[2020-06-07 12:04] LABS: CALCIUM 5.5 mg/dL (8.5-10.1)
[2020-06-07] MEDS ORDERED: CALCIUM CHLORIDE 27.2 MEQ in SODIUM CHLORIDE 0.9% 100 ML IV ONE (14:00)
[2020-06-08] MEDS: PIPERACILLIN/TAZO/PMX 2.25GM 50 ML IV SCH ×3 (00:56→17:16)
[2020-06-08] MEDS: HYDROCORTISONE 100 MG INJ. IVPush SCH ×3 (00:56→15:12)
[2020-06-08] MEDS: SODIUM CHLORIDE 0.9% 1,000 ML IV SCH ×2 (03:38→13:19)
[2020-06-08] MEDS: INSULIN LISPRO 100 UNITS/ML, PEN SQ-INSULIN SCH ×3 (03:39→15:00)
[2020-06-08 04:00] VITALS: BP 115/34
[2020-06-08] MEDS: HEPARIN 5,000 UNITS/ML, 1ML SQ SCH ×2 (04:53→12:00)
[2020-06-08] MEDS: LIOTHYRONINE 5 MCG TABLET PO SCH ×2 (09:28→15:12)
[2020-06-08] MEDS: SODIUM CHLORIDE FLUSH 10ML SYR IVF SCH (09:28)
[2020-06-08] MEDS: LEVOTHYROXINE 100 MCG INJ IVPush SCH (09:28)
[2020-06-08 09:50] LABS: MEAN CORPUSCULAR HEMOGLOBIN 28.6 pg (27.0-34.8); MEAN CORPUSCULAR HGB CONC 30.3 g/dL (32.4-35.8); MEAN PLATELET VOLUME 9.6 fL (7.4-10.4); PLATELET COUNT 158 x10^3/uL (130-400); RED BLOOD COUNT 2.43 x10^6/uL (3.82-5.3); RED CELL DISTRIBUTION WIDTH 17.7 % (9.6-15.2)
[2020-06-08 09:56] LABS: ANION GAP 8 mmol/L (5-15); CALCIUM 6.7 mg/dL (8.5-10.1); CHLORIDE 106 mmol/L (98-107)
[2020-06-08 10:01] LABS: CREATININE 5.69 mg/dL (0.55-1.02)
[2020-06-08 10:06] LABS: FREE T4 (FREE THYROXINE) 0.91 ng/dL (0.76-1.46)
[2020-06-08 10:09] LABS: ANISOCYTOSIS 1+; BASOPHILLIC STIPPLING 1+; BASOPHILS % (AUTO) 0 % (0-1); EOSINOPHILS % (AUTO) 0 % (1-7); HYPOCHROMIA 2+; LYMPHOCYTES # (AUTO) 0.31 x10^3/uL (1-3.4); LYMPHOCYTES % (AUTO) 4 % (22-44); MD MORPH REVIEW ONLY; MONOCYTES # (AUTO) 0.36 x10^3/uL (0.2-0.8); MONOCYTES % (AUTO) 4 % (2-9); NEUTROPHILS # (AUTO) 7.82 x10^3/uL (1.8-6.8); NEUTROPHILS % (AUTO) 92 % (42-75); OVALOCYTES 1+
[2020-06-08 10:10] LABS: STOMATOCYTES 1+
[2020-06-08 10:11] LABS: <PLATELET ESTIMATE> ADEQUATE; <PLT MORPHOLOGY> NORMAL PLT MORPH
[2020-06-08] MEDS ORDERED: ATROPINE OPHTH SOLN 1%, 5ML PO PRN (13:30)
[2020-06-08] MEDS ORDERED: SCOPOLAMINE 1MG PATCH TD PRN (13:30)
[2020-06-08] MEDS ORDERED: HYDROmorphone/PF 20 MG in SODIUM CHLORIDE 0.9% 98 ML IV PRN (13:30)
[2020-06-08] MEDS ORDERED: LORazepam 2 MG/ML, 1ML IVPush PRN (13:30)
[2020-06-08] MEDS ORDERED: ONDANSETRON 2MG/ML, 2ML IVPush PRN (13:30)
== END 2020-06-09 02:00 | disposition hospice, home (50) | DRG 80 ==
LOC: SUATTDRO 15:06 → ED 15:14 → EDIP 17:17 → ICU 06-04 18:10 → CCU 06-05 21:30 → 4NW 06-08 17:12
PROVIDERS: ADMIT Internal Medicine; ATTEND Internal Medicine
PROC: 0T9B70Z Drainage of Bladder with Drainage Device, Via Natural or Artificial Opening (ICD-10-PCS; principal; 2020-06-03)
DX: E03.5 Myxedema coma (principal); G92 Toxic encephalopathy; J96.22 Acute and chronic respiratory failure with hypercapnia; N17.0 Acute kidney failure with tubular necrosis; J18.9 Pneumonia, unspecified organism; E87.2 Acidosis; E87.1 Hypo-osmolality and hyponatremia; C78.00 Secondary malignant neoplasm of unspecified lung; R57.9 Shock, unspecified; D68.69 Other thrombophilia; I13.0 Hypertensive heart and chronic kidney disease with heart failure and stage 1 through stage 4 chronic kidney disease, or unspecified chronic kidney disease; I50.42 Chronic combined systolic (congestive) and diastolic (congestive) heart failure; R94.6 Abnormal results of thyroid function studies; D63.8 Anemia in other chronic diseases classified elsewhere; I25.10 Atherosclerotic heart disease of native coronary artery without angina pectoris; Z95.1 Presence of aortocoronary bypass graft; I25.5 Ischemic cardiomyopathy; I35.0 Nonrheumatic aortic (valve) stenosis; N18.3 Chronic kidney disease, stage 3 (moderate); E11.22 Type 2 diabetes mellitus with diabetic chronic kidney disease; Z95.2 Presence of prosthetic heart valve; D32.9 Benign neoplasm of meninges, unspecified; Z85.850 Personal history of malignant neoplasm of thyroid; K22.2 Esophageal obstruction; E83.51 Hypocalcemia; C73 Malignant neoplasm of thyroid gland; E78.00 Pure hypercholesterolemia, unspecified; E78.5 Hyperlipidemia, unspecified; E87.5 Hyperkalemia; Z51.5 Encounter for palliative care; Z95.0 Presence of cardiac pacemaker; Z66 Do not resuscitate; Z20.828 Contact with and (suspected) exposure to other viral communicable diseases; W19.XXXA Unspecified fall, initial encounter; I27.20 Pulmonary hypertension, unspecified; F32.9 Major depressive disorder, single episode, unspecified; I48.0 Paroxysmal atrial fibrillation
CPT/HCPCS: 36415; 36573; 36600; 70450; 71045; 72125; 74018; 80048; 80053; 80069; 80202; 80307; 81003; 82330; 82803; 82962; 83605; 83735; 84100; 84439; 84443; 84481; 84484; 85025; 85610; 86850; 86900; 87081; 87635; 93005; 96374; 96375; 99291; G0378; J1170; J1644; J2310; J2543; J3370; P9047; C1751; J1630; J1720; J1815; J1940; J2060; J7030; J7040; J7050